=== PATIENT | female | born 1945 | race Caucasian/White ===

== ENCOUNTER 2017-11-03 00:13 | Outpatient (CLI) | payer MEDICARE, OTHER, SELFPAY ==
--- NOTE | 2017-11-03 12:12 | DI.MAMMO_ITS ---
SYMPTOM/DIAGNOSIS: SCREENING, Z12.31 MAMMOGRAMS: Mammograms were interpreted according to the usual protocol including computer analysis with CAD system, tomosynthesis and C view imaging. Comparison with prior examinations. Breast density D. No masses or microcalcifications are seen. There is nothing to suggest malignancy. IMPRESSION: Negative mammogram. Routine screening is recommended. Category I. MQSA ASSESSMENT OF FINDINGS: Negative. Category 1. Patient will receive a letter notifying them of these results. BI-RADS category D. The breasts are extremely dense, which lowers the sensitivity of mammography.
== END 2017-11-03 00:33 ==
PROVIDERS: PCP Nurse Practitioner Family; Visit Provider Nurse Practitioner Family
DX: Z12.31 Encounter for screening mammogram for malignant neoplasm of breast (principal)
CPT/HCPCS: 77063; 77067

== ENCOUNTER 2018-02-14 14:01 | Emergency (ER) | payer MEDICARE, OTHER, SELFPAY ==
[2018-02-14 14:04] VITALS: BP 94/46; PULSE 89; RESP 12; TEMP 36.7; O2SAT 97
[2018-02-14] MEDS: Ondansetron 4 MG/2 ML VIAL IVP (14:36)
[2018-02-14 14:42] VITALS: BP 102/54; PULSE 76; RESP 18; TEMP 37.3; O2SAT 100
--- NOTE | 2018-02-14 14:48 | W.ED.GENAD ---
Discharge Plan Disposition Patient Disposition: HOME Condition: Fair Discharge Details Chief Complaint: Nausea/Vomit/Diar Clinical Impression: Gastroenteritis Primary Care Provider: Jessica Ellis ED Provider: Carola Holm Home Meds and New Rx's Prescriptions: New ondansetron 4 mg tablet,disintegrating 4 mg PO QID PRN (Reason: nausea and vomiting) Qty: 10 RF: 0 Continued multivitamin [Daily Vitamin] 1 EACH tablet 1 ea PO DAILY RF: 0 cod liver oil 1 EACH capsule 1 ea PO BID RF: 0 calcium carbonate [Calcium 500] 500 MG tablet 500 mg PO DAILY RF: 0 cholecalciferol (vitamin D3) [Vitamin D3] 2,000 UNIT capsule 2,000 unit PO DAILY RF: 0 allerplex 2 tab PO TID RF: 0 drenatrophen 1 tab PO TID RF: 0 [place] 1 tab PO TID RF: 0 prochlorperazine [Compazine] 25 MG suppository 25 mg RC q8h PRNQty: 4 RF: 1 Varicella-Zoster Ge/As01b/Pf [Shingrix Vial Kit] 50 MCG INJ 50 mcg IM ONCE Qty: 1 RF: 1 sumatriptan succinate 50 mg tablet 50 mg PO ONCE MDD 200 mg PRN (Reason: migraine) Qty: 30 RF: 0 magnesium citrate 100 MG tablet 150 mg PO BID RF: 0 Discharge Instructions Instructions: Gastroenteritis (ED) Additional Instructions: Continue to encourage small frequent sips of fluids. Zofran is prescribed to help with nausea and vomiting. If you develop abdominal pain, note blood in your stool or in your emesis, develop fevers, inability to stay hydrated or other new/worsening symptoms please seek care urgently once again. Frequent hand hygiene to prevent spread. These follow-up with primary care in the next 5 days if not improving Referrals: Jessica Ellis, MAIKEL [Primary Care Provider] - Discharge Data Discharge Date/Time-TO BE ENTERED AT DEPARTURE: 02/14/18 17:27 Medical Decision Making Patient is a 72 year old female, accompanied by daughter, with c/c of nauea/vomiting and diarrhea that began yesterday. States she has vomited x 4 thus far today, no hematemesis. States that diarrhea has slowed down today. No recent travel, no recent antibiotics. Denies melena. Denies abdominal pain. She states that she has had body aches and chills, no documented fevers. Hx of hyperlipidemia, GERD, pelvic prolapse, migraines, gastric ulcer. Surgical history pertient for hernia repair. Patient appears fatigued and dehydrated on exam. VS WNL. Her BP s slightly low but this is typical for the patient on review. Abdomen is soft and nontender. She is currently endorsing nausea. Will hydrate the patient, give IV Zofran and obtain laboratory evaluation. Labs reviewed, consistent with dehydration. Patient has received 1L of fluids thus far, will give a second. Influenza negative, electrolytes normal. Patient diagnosed with gastroenteritis, advised this is likely viral process. Did advise that this is likely contagious. Patient feels much improved after the Zofran and hydration. She continues to receive IV hydration. She is currently taking in fluids orally. Encourage frequent sips when at home. Will prescribe Zofran to help with any persistent nausea. We discussed new/worsening symptoms and was seek care urgently once again. Advise follow-up with primary care this week if she is not improved. All of her questions and concerns were addressed she is in agreement with plan. HPI General Mode of arrival: ambulatory. Date/Time Provider Initiated Documentation: 02/14/18 14:25. Limitations to Documentation: no limitations. Information obtained by: patient and family. History of Present Illness 72 year old F presents to the emergency department with the chief complaint of nausea, vomiting and diarrhea, described as moderate (vomited x 4 today), Patient reports no radiation. Patient started experiencing this day(s) (1) and it has been constant. No relieving factors improve symptom(s), Eating worsens symptoms . Patient notes fever/chills (endorses chills, no fevers), loss of appetite, malaise and nausea/vomiting; denies chest pain, cough, headaches, rash and shortness of breath. Patient did receive the following treatments prior to arrival, none Related Data Home Medications Medication Instructions Recorded Confirmed Allerplex 2 tab PO TID 04/14/13 07/24/17 Drenatrophen 1 tab PO TID 04/14/13 07/24/17 [place] 1 tab PO TID 04/14/13 07/24/17 calcium carbonate [Calcium 500] 500 mg PO DAILY 04/14/13 07/24/17 cholecalciferol (vitamin D3) 2,000 unit PO DAILY 04/14/13 07/24/17 [Vitamin D3] cod liver oil 1 ea PO BID 04/14/13 07/24/17 multivitamin [Daily Vitamin] 1 ea PO DAILY 04/14/13 07/24/17 magnesium citrate 150 mg PO BID 07/11/16 07/24/17 prochlorperazine [Compazine] 25 mg RC q8h PRN #4 supp.rect 12/04/16 sumatriptan 50 mg tablet 50 mg PO ONCE PRN #30 tab-cap MDD 12/17/17 200 mg ondansetron 4 mg PO QID PRN #10 tab 02/14/18 Previous Rx's Medication Instructions Recorded sumatriptan 50 mg tablet 50 mg PO ONCE PRN #30 tab-cap MDD 12/17/17 200 mg ondansetron 4 mg PO QID PRN #10 tab 02/14/18 Allergies Allergy/AdvReac Type Severity Reaction Status Date / Time cefuroxime axetil Allergy Intermediate Skin Rash Unverified 02/14/18 14:07 [From Ceftin] General Stated Complaint: Nausea/Vomit/Diar JULIANNE: 3 Review of Systems Constitutional Reports as per HPI, Reports chills, Reports fatigue, Denies fever(s), Denies headache(s) and Reports poor appetite ENT Denies headache(s) Cardiovascular Reports as per HPI, Denies chest pain and Denies dyspnea Respiratory Reports as per HPI, Denies cough and Denies dyspnea Gastrointestinal Reports as per HPI, Denies abdominal pain, Denies melena, Denies bloating, Reports change in bowel habits, Denies coffee ground emesis, Denies cramping, Reports diarrhea, Reports nausea, Reports vomiting and Denies hematemesis Genitourinary Reports system reviewed and no additional complaints, except as docu (denies any change in urinary habits) Musculoskeletal Reports as per HPI and Denies back pain Integumentary/Breasts Reports as per HPI and Denies rash Neurologic Denies headache(s) Endocrine Reports fatigue [facility] Medical History GERD (gastroesophageal reflux disease) History of gastric ulcer Migraines OA (osteoarthritis) Osteoporosis Surgical History Bunionectomy (03/24/15) Extraction of cataract (07/16/16) removal lens material w/ lens implant, left (08/05/16) Family History Brother Diabetes Grandmother Diabetes Social History Smoking/Tobacco Use Status: Never Exam Const General: cooperative, healthy appearing, comfortable, no acute distress, well developed and ill appearing (appears fatigued and pale) acutely Nutritional Appearance: average body habitus and well nourished Orientation: alert and awake [facility] Head: normal to inspection Mouth: mucous membranes dry (patietn appears dry on exam) Neck Neck: normal visual inspection, no lymphadenopathy and no meningeal signs Resp Effort & Inspection: normal respiratory effort, able to speak in complete sentences and no respiratory distress Auscultation: clear to auscultation bilaterally, no rales, no rhonchi and no wheezes Cardio Rate: regular rate Rhythm: regular rhythm Heart Sounds: S1 normal and S2 normal GI Inspection: normal to inspection, non-distended, no obesity and no visible herniation Palpation: soft, no hepatosplenomegaly, not firm, no guarding, not rigid and nontender Percussion: normal to percussion Auscultation: normal bowel sounds Back/Spine/Pelvis Back: no CVA tenderness Skin General skin exam: no rashes or lesions noted Trauma: no lacerations or abrasions Neuro General: alert and awake Cognition: normal cognition Speech: speech normal Gait: normal gait Extrem General: no pedal edema and no calf tenderness Psych Appearance: grossly normal and well kempt Mental Status: mental status grossly normal Speech and Movement: speech and movement normal Course Vital Signs Temperature 36.7 C 02/14/18 14:04 Pulse 89 02/14/18 14:04 Respiratory Rate 12 02/14/18 14:04 Blood Pressure 94/46 L 02/14/18 14:04 Pulse Oximetry 97 02/14/18 14:04 Temperature 37.3 C 02/14/18 14:42 Temperature Source Oral 02/14/18 14:42 Pulse 76 02/14/18 14:42 Respiratory Rate 18 02/14/18 14:42 Respiratory Effort Non-Labored 02/14/18 14:06 Blood Pressure 102/54 L 02/14/18 14:42 Blood Pressure Position Sitting 02/14/18 14:04 Pulse Oximetry 100 02/14/18 14:42 Oxygen Delivery Method Room Air 02/14/18 14:42 Oxygen Flow Rate 0 02/14/18 14:42 Pain Level 0 02/14/18 14:04
[2018-02-14] MEDS: Normal Saline 1,000 ML 1000 ML IV (14:52)
--- NOTE | 2018-02-14 14:55 | ED.GENADUL_ITS ---
Discharge Plan Disposition Patient Disposition: HOME Condition: Fair Discharge Details Chief Complaint: Nausea/Vomit/Diar Clinical Impression: Gastroenteritis Primary Care Provider: Jessica Ellis ED Provider: Carola Holm Home Meds and New Rx's Prescriptions: New ondansetron 4 mg tablet,disintegrating 4 mg PO QID PRN (Reason: nausea and vomiting) Qty: 10 RF: 0 Continued multivitamin [Daily Vitamin] 1 EACH tablet 1 ea PO DAILY RF: 0 cod liver oil 1 EACH capsule 1 ea PO BID RF: 0 calcium carbonate [Calcium 500] 500 MG tablet 500 mg PO DAILY RF: 0 cholecalciferol (vitamin D3) [Vitamin D3] 2,000 UNIT capsule 2,000 unit PO DAILY RF: 0 allerplex 2 tab PO TID RF: 0 drenatrophen 1 tab PO TID RF: 0 [place] 1 tab PO TID RF: 0 prochlorperazine [Compazine] 25 MG suppository 25 mg RC q8h PRNQty: 4 RF: 1 Varicella-Zoster Ge/As01b/Pf [Shingrix Vial Kit] 50 MCG INJ 50 mcg IM ONCE Qty: 1 RF: 1 sumatriptan succinate 50 mg tablet 50 mg PO ONCE MDD 200 mg PRN (Reason: migraine) Qty: 30 RF: 0 magnesium citrate 100 MG tablet 150 mg PO BID RF: 0 Discharge Instructions Instructions: Gastroenteritis (ED) Additional Instructions: Continue to encourage small frequent sips of fluids. Zofran is prescribed to help with nausea and vomiting. If you develop abdominal pain, note blood in your stool or in your emesis, develop fevers, inability to stay hydrated or other new/worsening symptoms please seek care urgently once again. Frequent hand hygiene to prevent spread. These follow-up with primary care in the next 5 days if not improving Referrals: Jessica Ellis, MAIKEL [Primary Care Provider] - Discharge Data Discharge Date/Time-TO BE ENTERED AT DEPARTURE: 02/14/18 17:27 Medical Decision Making Patient is a 72 year old female, accompanied by daughter, with c/c of nauea/vomiting and diarrhea that began yesterday. States she has vomited x 4 thus far today, no hematemesis. States that diarrhea has slowed down today. No recent travel, no recent antibiotics. Denies melena. Denies abdominal pain. She states that she has had body aches and chills, no documented fevers. Hx of hyperlipidemia, GERD, pelvic prolapse, migraines, gastric ulcer. Surgical history pertient for hernia repair. Patient appears fatigued and dehydrated on exam. VS WNL. Her BP s slightly low but this is typical for the patient on review. Abdomen is soft and nontender. She is currently endorsing nausea. Will hydrate the patient, give IV Zofran and obtain laboratory evaluation. Labs reviewed, consistent with dehydration. Patient has received 1L of fluids thus far, will give a second. Influenza negative, electrolytes normal. Patient diagnosed with gastroenteritis, advised this is likely viral process. Did advise that this is likely contagious. Patient feels much improved after the Zofran and hydration. She continues to receive IV hydration. She is currently taking in fluids orally. Encourage frequent sips when at home. Will prescribe Zofran to help with any persistent nausea. We discussed new/worsening symptoms and was seek care urgently once again. Advise follow-up with primary care this week if she is not improved. All of her questions and concerns were addressed she is in agreement with plan. HPI General Mode of arrival: ambulatory . Date/Time Provider Initiated Documentation: 02/14/18 14:25 . Limitations to Documentation: no limitations . Information obtained by: patient and family . History of Present Illness 72 year old F presents to the emergency department with the chief complaint of nausea, vomiting and diarrhea, described as moderate (vomited x 4 today), Patient reports no radiation. Patient started experiencing this day(s) (1) and it has been constant. No relieving factors improve symptom(s), Eating worsens symptoms . Patient notes fever/chills (endorses chills, no fevers), loss of appetite, malaise and nausea/vomiting; denies chest pain, cough, headaches, rash and shortness of breath. Patient did receive the following treatments prior to arrival, none Related Data Home Medications Medication Instructions Recorded Confirmed Allerplex 2 tab PO TID 04/14/13 07/24/17 Drenatrophen 1 tab PO TID 04/14/13 07/24/17 [place] 1 tab PO TID 04/14/13 07/24/17 calcium carbonate [Calcium 500] 500 mg PO DAILY 04/14/13 07/24/17 cholecalciferol (vitamin D3) 2,000 unit PO DAILY 04/14/13 07/24/17 [Vitamin D3] cod liver oil 1 ea PO BID 04/14/13 07/24/17 multivitamin [Daily Vitamin] 1 ea PO DAILY 04/14/13 07/24/17 magnesium citrate 150 mg PO BID 07/11/16 07/24/17 prochlorperazine [Compazine] 25 mg RC q8h PRN #4 supp.rect 12/04/16 sumatriptan 50 mg tablet 50 mg PO ONCE PRN #30 tab-cap MDD 12/17/17 200 mg ondansetron 4 mg PO QID PRN #10 tab 02/14/18 Previous Rx's Medication Instructions Recorded sumatriptan 50 mg tablet 50 mg PO ONCE PRN #30 tab-cap MDD 12/17/17 200 mg ondansetron 4 mg PO QID PRN #10 tab 02/14/18 Allergies Allergy/AdvReac Type Severity Reaction Status Date / Time cefuroxime axetil Allergy Intermediate Skin Rash Unverified 02/14/18 14:07 [From Ceftin] General Stated Complaint: Nausea/Vomit/Diar JULIANNE: 3 Review of Systems Constitutional Reports as per HPI, Reports chills, Reports fatigue, Denies fever(s), Denies headache(s) and Reports poor appetite ENT Denies headache(s) Cardiovascular Reports as per HPI, Denies chest pain and Denies dyspnea Respiratory Reports as per HPI, Denies cough and Denies dyspnea Gastrointestinal Reports as per HPI, Denies abdominal pain, Denies melena, Denies bloating, Reports change in bowel habits, Denies coffee ground emesis, Denies cramping, Reports diarrhea, Reports nausea, Reports vomiting and Denies hematemesis Genitourinary Reports system reviewed and no additional complaints, except as docu (denies any change in urinary habits) Musculoskeletal Reports as per HPI and Denies back pain Integumentary/Breasts Reports as per HPI and Denies rash Neurologic Denies headache(s) Endocrine Reports fatigue [facility] Medical History GERD (gastroesophageal reflux disease) History of gastric ulcer Migraines OA (osteoarthritis) Osteoporosis Surgical History Bunionectomy (03/24/15) Extraction of cataract (07/16/16) removal lens material w/ lens implant, left (08/05/16) Family History Brother Diabetes Grandmother Diabetes Social History Smoking/Tobacco Use Status: Never Exam Const General: cooperative, healthy appearing, comfortable, no acute distress, well developed and ill appearing (appears fatigued and pale) acutely Nutritional Appearance: average body habitus and well nourished Orientation: alert and awake [facility] Head: normal to inspection Mouth: mucous membranes dry (patietn appears dry on exam) Neck Neck: normal visual inspection, no lymphadenopathy and no meningeal signs Resp Effort & Inspection: normal respiratory effort, able to speak in complete sentences and no respiratory distress Auscultation: clear to auscultation bilaterally, no rales, no rhonchi and no wheezes Cardio Rate: regular rate Rhythm: regular rhythm Heart Sounds: S1 normal and S2 normal GI Inspection: normal to inspection, non-distended, no obesity and no visible herniation Palpation: soft, no hepatosplenomegaly, not firm, no guarding, not rigid and nontender Percussion: normal to percussion Auscultation: normal bowel sounds Back/Spine/Pelvis Back: no CVA tenderness Skin General skin exam: no rashes or lesions noted Trauma: no lacerations or abrasions Neuro General: alert and awake Cognition: normal cognition Speech: speech normal Gait: normal gait Extrem General: no pedal edema and no calf tenderness Psych Appearance: grossly normal and well kempt Mental Status: mental status grossly normal Speech and Movement: speech and movement normal Course Vital Signs Temperature 36.7 C 02/14/18 14:04 Pulse 89 02/14/18 14:04 Respiratory Rate 12 02/14/18 14:04 Blood Pressure 94/46 L 02/14/18 14:04 Pulse Oximetry 97 02/14/18 14:04 Temperature 37.3 C 02/14/18 14:42 Temperature Source Oral 02/14/18 14:42 Pulse 76 02/14/18 14:42 Respiratory Rate 18 02/14/18 14:42 Respiratory Effort Non-Labored 02/14/18 14:06 Blood Pressure 102/54 L 02/14/18 14:42 Blood Pressure Position Sitting 02/14/18 14:04 Pulse Oximetry 100 02/14/18 14:42 Oxygen Delivery Method Room Air 02/14/18 14:42 Oxygen Flow Rate 0 02/14/18 14:42 Pain Level 0 02/14/18 14:04
[2018-02-14 14:56] LABS: Abs Immature Grans 0.02 k/cumm (0.0-0.09); HCT 36.1 % (36.0-46.0); HGB 12.5 g/dL (12.0-15.5); Mean Corp. HGB Concentration 34.6 g/dL (32.0-36.0); Mean Corpuscular Hemoglobin 33.2 pg (27.0-33.0); Mean Platelet Volume 9.5 fL (8.0-11.0); Platelet Count 197 x1000/uL (130-400); RBC 3.76 m/cumm (4.00-5.20); RBC Distribution Width 14.2 % (11.7-14.6); White Blood Cell Count 7.62 k/cumm (4.4-10.8)
[2018-02-14 15:18] LABS: Absolute Lymphocyte Count 0.53 k/cumm (1.2-3.4); Absolute Monocyte Count 0.38 k/cumm (0.11-0.7); Absolute Neutrophil Count 6.71 k/cumm (1.2-6.7)
[2018-02-14 15:19] LABS: Diff Comment Manual Differential; RBC Morphology Normal
[2018-02-14 15:24] VITALS: BP 159/61; PULSE 51; RESP 18; O2SAT 99
[2018-02-14 15:33] LABS: ALT 34 U/L (12-78); AST 27 U/L (15-37); Albumin 3.3 g/dL (3.4-5.0); Alkaline Phosphatase 56 U/L (46-116); Anion Gap 12.4 mmol/L (3-11); BUN 31 mg/dL (7-18); Bilirubin, Total 0.9 mg/dL (0.2-1.0); CO2 24.6 mmol/L (21.0-32.0); CREATININE 1.09 mg/dL (0.55-1.02); Calcium 8.9 mg/dL (8.5-10.1); Chloride 100 mmol/L (98-107); Glucose 143 mg/dL (70-100); Magnesium 1.9 mg/dL (1.8-2.4); Potassium 3.9 mmol/L (3.5-5.1); Sodium 137 mmol/L (136-145)
[2018-02-14 15:34] LABS: Troponin I < 0.02 ng/mL (0.00-0.06)
[2018-02-14] MEDS: Normal Saline 500 ML 1000 ML IV (16:29)
--- NOTE | 2018-02-14 16:31 | NUR.NOTE ---
patient drinking po fluids, 2nd liter admin, will contiune to monitor Nursing Note:
[2018-02-14 16:53] VITALS: BP 95/48; PULSE 74; RESP 16; O2SAT 100
[2018-02-14 17:07] VITALS: BP 102/47; PULSE 75; O2SAT 99
[2018-02-14] MEDS: Ondansetron O.D.T. 4 MG TABEF 12 MG PO (17:13)
== END 2018-02-14 17:27 | disposition home or self-care (01) ==
PROVIDERS: Emergency Provider Physician Assistant; PCP Nurse Practitioner Family
DX: K52.9 Noninfective gastroenteritis and colitis, unspecified (principal); I86.0 Sublingual varices
CPT/HCPCS: 36415; 80053; 87449; 96361; 96374; 99284; 83735; 84484; 85025; 99283

== ENCOUNTER 2018-08-24 07:02 | Outpatient (CLI) | payer MEDICARE, OTHER, SELFPAY ==
[2018-08-24 07:40] LABS: Absolute Basophil Count 0.01 k/cumm (0.0-0.2); Absolute Eosinophil Count 2.56 k/cumm (0.0-0.7); Absolute Lymphocyte Count 1.11 k/cumm (1.2-3.4); Absolute Monocyte Count 0.36 k/cumm (0.11-0.7); Absolute Neutrophil Count 1.76 k/cumm (1.2-6.7); Basophils % 0.2; Eosinophils % 44.1; HCT 35.4 % (36.0-46.0); HGB 11.8 g/dL (12.0-15.5); Lymphocytes % 19.1; Mean Corp. HGB Concentration 33.3 g/dL (32.0-36.0); Mean Corpuscular Hemoglobin 32.2 pg (27.0-33.0); Mean Corpuscular Volume 96.7 fL (80-95); Mean Platelet Volume 9.1 fL (8.0-11.0); Monocytes % 6.2; Neutrophils % 30.4; Platelet Count 186 x1000/uL (130-400); RBC 3.66 m/cumm (4.00-5.20); RBC Distribution Width 13.5 % (11.7-14.6)
[2018-08-24 08:00] LABS: Hemoglobin A1C 5.4 % (4.5-6.2)
[2018-08-24 08:14] LABS: ALT 27 U/L (12-78); AST 23 U/L (15-37); Albumin 3.6 g/dL (3.4-5.0); Alkaline Phosphatase 80 U/L (46-116); Anion Gap 11.2 mmol/L (3-11); BUN 14 mg/dL (7-18); Bilirubin, Total 0.7 mg/dL (0.2-1.0); CO2 24.8 mmol/L (21.0-32.0); CREATININE 0.72 mg/dL (0.55-1.02); Calcium 8.5 mg/dL (8.5-10.1); Calculated LDL 118 mg/dL; Chloride 102 mmol/L (98-107); Cholesterol 206 mg/dL (50-200); Glucose 93 mg/dL (70-100); HDL Cholesterol 77 mg/dL (40-60); Potassium 4.7 mmol/L (3.5-5.1); Sodium 138 mmol/L (136-145); TSH (W/Ref FT4) 1.62 uIU/mL (0.358-3.74); Total Protein 6.7 g/dL (6.4-8.2); Triglyceride 57 mg/dL (30-150)
[2018-08-24 08:18] LABS: Diff Comment Agrees w/ Instrument
[2018-08-24 08:19] LABS: RBC Morphology Normal
== END 2018-08-24 07:22 ==
PROVIDERS: PCP Nurse Practitioner Family; Visit Provider Nurse Practitioner Family
DX: E78.5 Hyperlipidemia, unspecified (principal); R73.01 Impaired fasting glucose; R53.83 Other fatigue
CPT/HCPCS: 36415; 80053; 80061; 83721; 83036; 84443; 85025

== ENCOUNTER 2018-09-01 01:39 | Outpatient (CLI) | payer MEDICARE, OTHER, SELFPAY ==
[2018-09-01 09:53] LABS: Absolute Basophil Count 0.01 k/cumm (0.0-0.2); Absolute Eosinophil Count 1.73 k/cumm (0.0-0.7); Absolute Lymphocyte Count 1.12 k/cumm (1.2-3.4); Absolute Monocyte Count 0.37 k/cumm (0.11-0.7); Absolute Neutrophil Count 1.58 k/cumm (1.2-6.7); Basophils % 0.2; HCT 36.5 % (36.0-46.0); HGB 12.2 g/dL (12.0-15.5); Lymphocytes % 23.3; Mean Corp. HGB Concentration 33.4 g/dL (32.0-36.0); Mean Corpuscular Hemoglobin 32.3 pg (27.0-33.0); Mean Corpuscular Volume 96.6 fL (80-95); Mean Platelet Volume 8.9 fL (8.0-11.0); Monocytes % 7.7; Neutrophils % 32.8; Platelet Count 209 x1000/uL (130-400); RBC 3.78 m/cumm (4.00-5.20); RBC Distribution Width 13.8 % (11.7-14.6); Reticulocyte 0.9 % (0.5-2.4); White Blood Cell Count 4.81 k/cumm (4.4-10.8)
[2018-09-01 10:12] LABS: Diff Comment Agrees w/ Instrument; RBC Morphology Normal
[2018-09-01 11:11] LABS: Vitamin B12 497 pg/mL (193-986)
[2018-09-01 11:12] LABS: Folate > 20.0 ng/mL (8.6-20.0)
== END 2018-09-01 01:59 ==
PROVIDERS: PCP Nurse Practitioner Family; Visit Provider Nurse Practitioner Family
DX: D64.9 Anemia, unspecified (principal); C50.912 Malignant neoplasm of unspecified site of left female breast; Z17.0 Estrogen receptor positive status [ER+]
CPT/HCPCS: 36415; 82607; 82746; 85025; 85045

== ENCOUNTER → 2018-09-29 12:49 | Outpatient (BNVA) | payer MEDICARE, OTHER, SELFPAY | PROVIDERS: PCP Nurse Practitioner Family; Visit Provider Urology | DX: R31.29 Other microscopic hematuria (principal) | CPT/HCPCS: 99212; 99213 ==

== ENCOUNTER 2018-10-01 02:18 | Outpatient (CLI) | payer MEDICARE, OTHER, SELFPAY ==
[2018-10-01 10:29] LABS: Absolute Basophil Count 0.01 k/cumm (0.0-0.2); Absolute Lymphocyte Count 1.11 k/cumm (1.2-3.4); Absolute Monocyte Count 0.35 k/cumm (0.11-0.7); Basophils % 0.3; Eosinophils % 5.3; HCT 34.3 % (36.0-46.0); HGB 11.5 g/dL (12.0-15.5); Lymphocytes % 29.4; Mean Corp. HGB Concentration 33.5 g/dL (32.0-36.0); Mean Corpuscular Hemoglobin 32.8 pg (27.0-33.0); Mean Corpuscular Volume 97.7 fL (80-95); Mean Platelet Volume 9.1 fL (8.0-11.0); Monocytes % 9.3; Neutrophils % 55.7; Platelet Count 212 x1000/uL (130-400); RBC 3.51 m/cumm (4.00-5.20); RBC Distribution Width 13.5 % (11.7-14.6); White Blood Cell Count 3.77 k/cumm (4.4-10.8)
[2018-10-01 11:25] LABS: Bilirubin Negative (Negative); Blood Trace-intact (Negative); Clarity Clear (Clear); Glucose Negative (Negative); Ketones Negative (Negative); Leukocyte Esterase Small (Negative); Nitrite Negative (Negative); Urobilinogen 0.2 EU/dL (Up TO 0.2); pH 7.5 (5-8)
[2018-10-01 11:48] LABS: Bacteria Few HPF (Negative); C & S Indicated? Yes; Casts Negative LPF (Negative); Crystals Negative HPF (Negative); Epithelial Cells Rare HPF (Negative); Mucus Negative (Negative); Other Cells Rare Renal (Negative)
== END 2018-10-01 02:38 ==
PROVIDERS: Urology; PCP Nurse Practitioner Family; Visit Provider Nurse Practitioner Family
DX: D75.89 Other specified diseases of blood and blood-forming organs (principal); R31.29 Other microscopic hematuria
CPT/HCPCS: 36415; 81003; 81015; 85025; 87086

== ENCOUNTER 2019-04-14 19:02 | Emergency (ER) | payer MEDICARE, OTHER, SELFPAY ==
[2019-04-14 19:06] VITALS: BP 94/58; PULSE 90; RESP 20; TEMP 36.7; O2SAT 99
--- NOTE | 2019-04-14 19:12 | ED.GENADUL_ITS ---
Discharge Plan Disposition Patient Disposition: HOME Condition: Good Discharge Details Chief Complaint: Nausea/Vomit/Diar Clinical Impression: Nausea vomiting and diarrhea, Acute dehydration Primary Care Provider: Jessica Ellis ED Provider: Carola Holm Home Meds and New Rx's Prescriptions: New ondansetron 4 mg tablet,disintegrating 4 mg PO Q6H PRN (Reason: nausea and vomiting) Qty: 14 RF: 0 Continued sumatriptan succinate 50 mg tablet 50 mg PO ONCE MDD 200 mg PRN (Reason: migraine) Qty: 30 RF: 3 multivitamin [Daily Vitamin] 1 EACH tablet 1 ea PO DAILY RF: 0 cod liver oil 1 EACH capsule 1 ea PO BID RF: 0 calcium carbonate [Calcium 500] 500 MG tablet 500 mg PO DAILY RF: 0 cholecalciferol (vitamin D3) [Vitamin D3] 2,000 UNIT capsule 2,000 unit PO DAILY RF: 0 [place] 1 tab PO TID RF: 0 prochlorperazine [Compazine] 25 mg suppository 25 mg [place] TID PRN (Reason: nausea and vomiting associated with migraines) Qty: 10 RF: 0 magnesium citrate 100 MG tablet 150 mg PO BID RF: 0 ondansetron 4 mg tablet,disintegrating 4 mg PO QID PRN (Reason: nausea and vomiting) Qty: 10 RF: 0 Discharge Instructions Instructions: Ondansetron (By mouth), Dehydration (ED), Acute Nausea and Vomiting (ED) Care Plan Goals: Continue to encourage water intake. Zofran as prescribed to help with any recurrent nausea. If you develop fever/chills, abdominal pain, inability stay hydrated or other new/worsening symptoms please seek care urgently once again. Otherwise, please follow-up with primary care in 2 days for reevaluation. Referrals: Jessica Ellis NP [Primary Care Provider] - Discharge Data Discharge Date/Time-TO BE ENTERED AT DEPARTURE: 04/14/19 21:45 Medical Decision Making Patient is a pleasant 73-year-old female, accompanied by her daughter, with chief complaint of nausea, vomiting. She reports that she awoke with the same symptoms around 2:00 this morning. States that she did the fish last night for dinner. No other sick contacts. Denies any recent travel. No chest pain or shortness of breath. States that she had 5 episodes of watery diarrhea this morning but that this is improved. She continues to endorse nausea. Is not been able to hydrate and feels weak and fatigued at this point. She was seen here 1 year ago for very similar symptoms. Has not had symptoms like this since that time. She denies any abdominal pain. No fevers or chills. No rash. Denies any dysuria. No hematemesis, blood in her stool. On exam, patient appears nontoxic. Lungs are clear, normal cardiac exam. Abdomen is benign, no CVA tenderness. Plan for hydration, laboratory evaluation and symptomatic management. Patient is given Zofran and IV hydration. She reports that she also has no migraine today. Did take her Imitrex was unable to keep this down. States it is typical migraine, no thunderclap etiology. Is not the worst headache of her life. She reports that typically when she has minimal p.o. intake could exacerbate her baseline migraines. Plan to treat with Reglan and Benadryl which she also help with the stomach further. Patient is feeling much improved. She is able to hydrate orally at this time. Labs reviewed. No leukocytosis. Sodium is mildly low at 135. BUN is elevated at 26, creatinine elevated at 1.2. I did discuss this acute kidney injury with the patient. Advised that she follow-up closely with primary care and have this reassessed. However, as the patient is currently hydrating, has received 2 L since being here he feel that discharge is appropriate at this time. She is clinically feeling much improved and feels ready for discharge at this time. She will contact primary care tomorrow to schedule follow-up appointment. We discussed new/worsening symptoms when to seek care urgently once again. All of her questions and concerns were addressed and she is in agreement this plan. [facility] General Mode of arrival: ambulatory . Date/Time Provider Initiated Documentation: 04/14/19 19:12 . Limitations to Documentation: no limitations . Information obtained by: patient and family (daughter) . History of Present Illness 73 year old F presents to the emergency department with the chief complaint of N/V/D, described as moderate and similar to prior episodes, Quality is described as other (abdominal cramping this morning, since resolved), and is localized to the abdomen. Patient reports no radiation. Patient started experiencing this hour(s) (0200) and it has been constant. No relieving factors improve symptom(s), No exacerbating factors reported . Patient notes denies chest pain, cough, fever/chills, headaches, nausea/vomiting, rash, shortness of breath and weakness. Patient did receive the following treatments prior to arrival, none Related Data Home Medications Medication Instructions Recorded Confirmed [place] 1 tab PO TID 04/14/13 04/14/19 calcium carbonate [Calcium 500] 500 mg PO DAILY 04/14/13 04/14/19 cholecalciferol (vitamin D3) 2,000 unit PO DAILY 04/14/13 04/14/19 [Vitamin D3] cod liver oil 1 ea PO BID 04/14/13 04/14/19 multivitamin [Daily Vitamin] 1 ea PO DAILY 04/14/13 04/14/19 magnesium citrate 150 mg PO BID 07/11/16 04/14/19 ondansetron 4 mg PO QID PRN #10 tab 02/14/18 04/14/19 prochlorperazine 25 mg rectal 25 mg [place] TID PRN #10 tab-cap 11/18/18 04/14/19 suppository sumatriptan succinate 50 mg tablet 50 mg PO ONCE PRN #30 tab-cap MDD 12/17/18 04/14/19 200 mg ondansetron 4 mg PO Q6H PRN #14 tab 04/14/19 Previous Rx's Medication Instructions Recorded ondansetron 4 mg PO QID PRN #10 tab 02/14/18 prochlorperazine 25 mg rectal 25 mg [place] TID PRN #10 tab-cap 11/18/18 suppository sumatriptan succinate 50 mg tablet 50 mg PO ONCE PRN #30 tab-cap MDD 12/17/18 200 mg ondansetron 4 mg PO Q6H PRN #14 tab 04/14/19 Allergies Allergy/AdvReac Type Severity Reaction Status Date / Time cefuroxime axetil Allergy Intermediate Skin Rash Verified 04/14/19 19:08 [From Ceftin] General Stated Complaint: Nausea/Vomit/Diar JULIANNE: 3 Review of Systems Constitutional Constitutional: Reports as per HPI, Denies chills, Reports fatigue, Denies fever(s), Denies headache(s) and Reports poor appetite ENT Ears, Nose, Mouth, and Throat: Denies headache(s) Cardiovascular Cardiovascular: Reports as per HPI, Denies chest pain and Denies dyspnea Respiratory Respiratory: Reports as per HPI, Denies cough and Denies dyspnea Gastrointestinal Gastrointestinal: Reports as per HPI Musculoskeletal Musculoskeletal: Reports as per HPI and Denies back pain Integumentary/Breasts Skin/Breast: Reports as per HPI and Denies rash Neurologic Neurologic: Reports as per HPI and Denies headache(s) Endocrine Endocrine: Reports fatigue [facility] Medical History Female genital prolapse (Chronic 04/17/11) Gastroesophageal reflux disease (Chronic 04/01/11) History of gastric ulcer Hyperlipidemia (Chronic 07/21/17) 08/2018 labs: 10-year ASCVD risk = ~10.9% --> NL HS-CRP in 2018, no statin Microscopic hematuria (Chronic 07/31/17) 07/24/17 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 Extraction of cataract (07/16/16) B/L (L eye initially aborted due to increased pressure then later completed successfully). Dr Villavicencio. removal lens material w/ lens implant, left (08/05/16) Status post rotator cuff surgery (Acute ~2015) Right Social History Smoking/Tobacco Use Status: Never Alcohol Intake: current Alcohol Intake frequency: a few times a week Alcohol type: wine Drug use: Never Substance use type: does not use Caregiver/Support person: No Number of Children: 3 Communication Needs: None What type of physical activity do you participate in: walking Duration: 60-90 minutes/day Frequency: daily Seatbelt use: always Helmet use: Yes Drive intox or ride w/intox power screwdriver operator: No Water heater temp set <120 deg: Yes Working smoke detector in home: Yes Fire extinguisher in home: Yes Carbon monox detector in home: Yes Firearms in home: No Do you feel safe at home: Yes Do you feel safe in your relationship?: Yes Female Reproductive History Menstrual Menopause type: natural Exam Const General: cooperative, healthy appearing, comfortable, no acute distress and well developed Nutritional Appearance: average body habitus and well nourished Orientation: alert and awake HENNE Head: normal to inspection Mouth: mucous membranes dry Resp Effort & Inspection: normal respiratory effort, able to speak in complete sentences and no respiratory distress Auscultation: clear to auscultation bilaterally, no rales, no rhonchi and no wheezes Cardio Rate: regular rate Rhythm: regular rhythm Heart Sounds: S1 normal and S2 normal GI Inspection: normal to inspection and non-distended Palpation: soft, no hepatosplenomegaly, not firm, no guarding, not rigid and nontender Percussion: normal to percussion Auscultation: normal bowel sounds Back/Spine/Pelvis Back: no CVA tenderness Skin General skin exam: no rashes or lesions noted Trauma: no lacerations or abrasions Neuro General: alert and awake Cognition: normal cognition Speech: speech normal Gait: normal gait Psych Appearance: grossly normal and well kempt Mental Status: mental status grossly normal Speech and Movement: speech and movement normal Course Vital Signs Vital signs: Vital Signs Temperature 36.7 C 04/14/19 19:06 Pulse 90 04/14/19 19:06 Respiratory Rate 04/14/19 19:06 Blood Pressure 94/58 L 04/14/19 19:06 Pulse Oximetry 99 04/14/19 19:06 Temperature 36.7 C 04/14/19 19:06 Temperature Source Temporal Artery Scan 04/14/19 19:06 Pulse 90 04/14/19 19:06 Respiratory Rate 20 04/14/19 19:06 Blood Pressure 94/58 L 04/14/19 19:06 Pulse Oximetry 99 04/14/19 19:06 Oxygen Delivery Method Room Air 04/14/19 19:06 Oxygen Flow Rate 0 04/14/19 19:06 Pain Level 0 04/14/19 19:06
[2019-04-14] MEDS: Lactated Ringers 1,000 ML 1000 ML IV (19:20)
[2019-04-14 19:42] LABS: Abs Immature Grans 0.02 k/cumm (0.0-0.09); Absolute Lymphocyte Count 0.24 k/cumm (1.2-3.4); Absolute Monocyte Count 0.74 k/cumm (0.11-0.7); Absolute Neutrophil Count 7.26 k/cumm (1.2-6.7); Immature Grans % 0.2 %; Lymphocytes % 2.9; Mean Corp. HGB Concentration 34.2 g/dL (32.0-36.0); Mean Corpuscular Hemoglobin 32.7 pg (27.0-33.0); Mean Corpuscular Volume 95.7 fL (80-95); Mean Platelet Volume 9.2 fL (8.0-11.0); Neutrophils % 87.9; Platelet Count 236 x1000/uL (130-400); RBC 3.97 m/cumm (4.00-5.20); RBC Distribution Width 13.1 % (11.7-14.6); White Blood Cell Count 8.26 k/cumm (4.4-10.8)
[2019-04-14] MEDS: Normal Saline Flush 10 ML SYR IVP (19:51)
[2019-04-14] MEDS: Ondansetron 4 MG/2 ML VIAL IVP (19:51)
[2019-04-14] MEDS: diphenhydrAMINE 50 MG/ML VIAL 25 MG IVP (20:05)
[2019-04-14 20:06] LABS: Albumin 3.3 g/dL (3.4-5.0); Alkaline Phosphatase 63 U/L (46-116); BUN 26 mg/dL (7-18); Bilirubin, Total 1.1 mg/dL (0.2-1.0); CREATININE 1.21 mg/dL (0.55-1.02); Calcium 8.5 mg/dL (8.5-10.1); Chloride 101 mmol/L (98-107); Glucose 139 mg/dL (74-106); Potassium 4.5 mmol/L (3.5-5.1); Sodium 135 mmol/L (136-145); Total Protein 6.9 g/dL (6.4-8.2)
[2019-04-14] MEDS: Metoclopramide 10 MG/2 ML VIAL IVP (20:06)
[2019-04-14 20:07] LABS: ALT 28 U/L (14-59); AST 23 U/L (15-37); Anion Gap 11.4 mmol/L (3-11); CO2 22.6 mmol/L (21.0-32.0)
[2019-04-14] MEDS: Normal Saline 1,000 ML 1000 ML IV (20:35)
[2019-04-14 20:58] VITALS: BP 91/43; PULSE 70; RESP 18; O2SAT 98
[2019-04-14 21:39] VITALS: BP 91/43; PULSE 70; RESP 18; TEMP 36.7; O2SAT 98
[2019-04-14] MEDS: Ondansetron O.D.T. 4 MG TABEF, 3 TABS/BTL PO (21:40)
== END 2019-04-14 21:45 | disposition home or self-care (01) ==
PROVIDERS: Emergency Provider Physician Assistant; PCP Nurse Practitioner Family
DX: R11.2 Nausea with vomiting, unspecified (principal); R19.7 Diarrhea, unspecified; E86.0 Dehydration
CPT/HCPCS: 80053; 96361; 96374; 96375; 99284; 85025; J1200; J2405; J2765

== ENCOUNTER 2019-07-19 10:04 | Outpatient (CLI) | payer MEDICARE, OTHER, SELFPAY ==
--- NOTE | 2019-07-19 09:45 | DI.RAD_ITS ---
EXAM: XR KNEE LT 4V AP,LAT,CHRIS,PAT CLINICAL HISTORY: left knee pain. TECHNIQUE: 2D digital imaging was performed. COMPARISON: No exams were available for comparison FINDINGS: BONES: No acute fracture is present. No bony destructive lesion is seen. JOINTS: The knee is normally aligned. No joint effusion is seen. SOFT TISSUE: Normal. IMPRESSION: No acute abnormality. DATA REPOSITORY: RADIATION DOSE DELIVERED:
== END 2019-07-19 10:24 ==
PROVIDERS: PCP Nurse Practitioner Family; Referring Provider Nurse Practitioner Family; Visit Provider Student in an Organized Health Care Education/Training Program
DX: M25.562 Pain in left knee (principal); M76.32 Iliotibial band syndrome, left leg
CPT/HCPCS: 20610; 99203; 99214; 73564; J1030

== ENCOUNTER 2019-10-06 03:03 | Outpatient (CLI) | payer MEDICARE, OTHER, SELFPAY ==
[2019-10-06 08:42] LABS: ALT 27 U/L (14-59); AST 18 U/L (15-37); Albumin 3.8 g/dL (3.4-5.0); Alkaline Phosphatase 74 U/L (46-116); Anion Gap 3.2 mmol/L (3-11); BUN 11 mg/dL (7-18); Bilirubin, Total 0.7 mg/dL (0.2-1.0); CO2 29.8 mmol/L (21.0-32.0); CREATININE 0.69 mg/dL (0.55-1.02); Calcium 8.9 mg/dL (8.5-10.1); Chloride 106 mmol/L (98-107); Glucose 92 mg/dL (74-106); Potassium 4.3 mmol/L (3.5-5.1); Sodium 139 mmol/L (136-145); Total Protein 7.1 g/dL (6.4-8.2)
== END 2019-10-06 03:23 ==
PROVIDERS: PCP Nurse Practitioner Family; Visit Provider Nurse Practitioner Family
DX: N17.9 Acute kidney failure, unspecified (principal); E80.6 Other disorders of bilirubin metabolism
CPT/HCPCS: 36415; 80053

== ENCOUNTER 2019-10-13 04:39 | Outpatient (CLI) | payer MEDICARE, OTHER, SELFPAY ==
--- NOTE | 2019-10-13 08:15 | DI.MAMMO_ITS ---
EXAM: MG MAMMO SCREENING CLINICAL HISTORY: screening, Z12.39 TECHNIQUE: Bilateral full field digital CC and MLO mammographic images were obtained with 3D tomosyn thesis and utilizing computer aided detection (CAD). COMPARISON: Available for comparison. FINDINGS: Masses/Architectural Distortion: None seen. Microcalcifications: No suspicious pleomorphic-type are seen. Skin Thickening/Nipple Retraction: None. IMPRESSION: 1. No significant interval change with no specific features of malignancy noted. 2. Unless there is more urgent need, screening mammography is recommended, as per [employer] guidelines. BI-RADS Category 1 - Negative Breast Density - Category D - Extremely dense The mammogram demonstrates the patient's breast tissue is dense. Dense breast tissue is very common a nd is not abnormal but dense breast tissue can make it harder to find cancer on a mammogram. Also, de nse breast tissue may increase their breast cancer risk. This information about the result of the [facility] mogram report was provided to the patient to raise their awareness. Use this report when you speak wi th the patient about their risks for breast cancer, which includes their family history. At that time , you may recommend for more screening tests (Ultrasound or MRI) as they might be useful based on the ir risk. A negative radiographic report should not delay biopsy if a dominant or clinically suspicious mass is present. Up to ten percent of cancers are not identified on mammography. A negative report may reinforce clinical impression. Adenosis and dense breasts may obscure an underlying neoplasm. False positive reports average 6 to 10%. Patient will receive a letter notifying them of these results.
== END 2019-10-13 04:59 ==
PROVIDERS: PCP Nurse Practitioner Family; Visit Provider Nurse Practitioner Family
DX: Z12.31 Encounter for screening mammogram for malignant neoplasm of breast (principal); R92.2 Inconclusive mammogram
CPT/HCPCS: 77063; 77067

== ENCOUNTER → 2019-11-25 09:57 | Outpatient (BNVA) | payer MEDICARE, OTHER, SELFPAY | PROVIDERS: PCP Nurse Practitioner Family; Referring Provider Nurse Practitioner Family; Visit Provider Physical Therapy Assistant | DX: Z12.11 Encounter for screening for malignant neoplasm of colon (principal) ==

== ENCOUNTER → 2019-11-26 10:46 | Outpatient (BNVA) | payer MEDICARE, OTHER, SELFPAY | PROVIDERS: PCP Nurse Practitioner Family; Referring Provider Nurse Practitioner Family; Visit Provider Student in an Organized Health Care Education/Training Program | DX: M76.32 Iliotibial band syndrome, left leg (principal) | CPT/HCPCS: 20550; 99213; J1030 ==

== ENCOUNTER 2019-12-13 06:14 | Day surgery (SDC) | payer MEDICARE, OTHER, SELFPAY ==
[2019-12-13 06:42] VITALS: BP 116/70; PULSE 68; RESP 18; TEMP 36.1; O2SAT 95
[2019-12-13] MEDS: Lactated Ringers 1,000 ML 80 ML IV (06:55)
--- NOTE | 2019-12-13 06:59 | W.COLOREPORT ---
Date of service: 12/13/19 Time of Service: :33 Colonoscopy Report Date of procedure: 12/13/19 Pre-op diagnosis general: Colon Cancer Screening Post-op diagnosis procedure note: other (polyps) Procedure: Colonoscopy with polypectomy Surgeon: Yusra Charles Anesthesia proc note operative: other (General/ ASA 2/Osmar Cano CRNA) Estimated blood loss (mL): 3 Pathology: other (AScending polyp, transverse polyp and sigmoid polyp) Complications: None Disposition: same day Indications: The patient is here for Colonoscopy pre-op. Her last screening was in 2009 and was unremarkable. She has no family history of colon cancer. She has not had any bowel habit changes. -Discussed colonoscopy bowel prep as well as the procedure. Discussed possible complications of the procedure to include bleeding, pain, perforation, missed small lesion/polyp, sore throat, aspiration and adverse reaction to the medications. Questions were answered to patient?s satisfaction. No guarantees were implied or given. Prep: Miralax/Dulcolax Procedure Start Time: Procedure End Time: :57 Retraction Time: 14 minutes Findings: 3 small polyps identified. All were <10 mm in size Procedure Description: After informed consent was obtained the patient was taken to the procedure room and placed in a left decubitous position. Monitors were applied and a time out was done. The patients name, date of , procedure, allergies to medications and metal in their body was reviewed. The patient was then sedated. Once sedated and comfortable a rectal exam was done. External exam was normal. Internal exam revealed a normal sphincter tone and no palpable masses. The scope was then introduced and retro-flexed. No internal hemorrhoids, masses or polyps were identified on retro-flexion. The scope was then advanced to the cecum without difficulty. The ileocecal valve and appendiceal orifice were identified. The prep was adequate. The scope was then slowly retracted over 14 minutes back into the rectum. Polyps were removed with cold forceps in the ascending colon, transverse polyp and sigmoid polyp. There were no diverticula. The scope was removed and the patient was woken up and taken back to Same day surgery in stable condition. The patient tolerated the procedure well and there were no immediate complications. Follow up: The patient should follow up in 3-5 years unless they develop changes in bowel habits or other new gastrointestinal complaints.
--- NOTE | 2019-12-13 07:00 | W.PM.DSUDISC ---
Discharge Plan Disposition Patient Disposition: HOME Condition: Good Discharge Details Reason For Visit: colonoscopy Attending Provider: Yusra Charles Primary Care Provider: Jessica Ellis Home Meds and New Rx's Prescriptions: Continued sumatriptan succinate 50 mg tablet 50 mg PO ONCE MDD 200 mg PRN (Reason: migraine) Qty: 30 RF: 3 multivitamin [Daily Vitamin] 1 EACH tablet 1 ea PO DAILY RF: 0 cod liver oil 1 EACH capsule 1 ea PO BID RF: 0 calcium carbonate [Calcium 500] 500 MG tablet 500 mg PO DAILY RF: 0 cholecalciferol (vitamin D3) [Vitamin D3] 2,000 UNIT capsule 2,000 unit PO DAILY RF: 0 [place] 1 tab PO TID RF: 0 prochlorperazine [Compazine] 25 mg suppository 25 mg [place] TID PRN (Reason: nausea and vomiting associated with migraines) Qty: 10 RF: 0 methylprednisolone [Medrol (Rafal)] 4 mg tablets,dose pack See Rx Instructions PO DIRECTED Qty: 21 RF: 0 ondansetron 4 mg tablet,disintegrating 4 mg PO Q6H PRN (Reason: nausea and vomiting) Qty: 14 RF: 0 acetaminophen 500 mg Capsule 1,000 mg PO Q6H PRNRF: 0 magnesium citrate 100 MG tablet 150 mg PO BID RF: 0 Discontinued polyethylene glycol 3350 17 gram/dose powder 238 g PO ONCE Qty: 238 RF: 0 bisacodyl [Dulcolax (bisacodyl)] 5 mg tablet,delayed release (DR/EC) 5 mg PO ONCE Qty: 4 RF: 0 bisacodyl [Dulcolax (bisacodyl)] 5 mg tablet,delayed release (DR/EC) 5 mg PO ONCE Qty: 4 RF: 0 polyethylene glycol 3350 17 gram/dose powder 17 g PO ONCE Qty: 238 RF: 0 Discharge Instructions Instructions: Colorectal Polyps (DC) Additional Instructions: Findings: 3 small polyps Follow up: 3-5 years Please call if you develop: fevers >101.5 Nausea or Vomiting Abdominal pain that is not transient DAY SURGERY UNIT POST ENDOSCOPY INSTRUCTIONS 1. Because there will be medication in your system for the next 24 hours, you may feel a little sleepy. Your coordination will be affected. Therefore: a. Do not drive or operate dangerous equipment for 24 hours. b. Do not drink alcohol beverages for 24 hours (not even beer). c. Plan to go home and rest for the day. 2. Generally there are no restrictions on your activity after a day or so has gone by, but you may feel a bit fatigued for a few days. 3 After you arrive home you may have a light meal and return to a normal diet as you can tolerate it without feeling sick to your stomach. 4. After surgery, you may feel pain or discomfort. This should be only transient, but if it persists please contact your doctor. 5. If there are any questions regarding the findings of your procedure, please feel free to contact your doctor. 6. If you are unable to contact your doctor with a problem, contact the hospital at [phone]. 7. Continue all your regular medications unless directed otherwise. I understand the above instructions and have no questions. Signature of Patient or Responsible Adult Escort Date/Time Name of Responsible Adult Escort Signature of Nurse Date/Time Activity:: Activity as Tolerated Diet:: As Tolerated Discharge Orders Discharge Orders: Discharge Order (Routine); Ordered 12/13/19 Ordered By: Yusra Charles
--- NOTE | 2019-12-13 07:35 | BOWEL_PTH ---
PATIENT: Adele Lala LOC: [facility] U#:[id number] AGE/SX: 74/F ROOM: RE12/13/[address]: Yusra Charles MD : [id number] BED: DIS: 12/13/2019 SPEC #: [id number] RECD: 12/13/19 10:46 STATUS: SURINDER REQ #: [id number] ABIODUN: 12/13/19 07:[address]: Yusra Charles DEPT: Surgical Specimen RECD BY: Sakina Denny ENTERED: 12/13/19 10:49 SP TYPE: Bowel OTHR DR: Jessica Ellis, PREMA Tissues: 1 - BIOPSY BOWEL 2 - BIOPSY BOWEL 3 - BIOPSY BOWEL Procedures: GROSS AND MICRO LEVEL 4 Comments: [id number] ([id number] [facility] [place]#)
[2019-12-13 08:26] VITALS: BP 100/57; PULSE 54; RESP 16; TEMP 36.1; O2SAT 100
== END 2019-12-13 09:12 | disposition home or self-care (01) ==
PROVIDERS: PCP Nurse Practitioner Family; Visit Provider Surgery
PROC: 0DJD8ZZ Inspection of Lower Intestinal Tract, Via Natural or Artificial Opening Endoscopic (ICD-10-PCS; CPT 45378; principal; 2019-12-13 07:30)
DX: Z12.11 Encounter for screening for malignant neoplasm of colon (principal); K63.5 Polyp of colon; M54.5 Low back pain; K21.9 Gastro-esophageal reflux disease without esophagitis
CPT/HCPCS: 45380; 88305

== ENCOUNTER 2020-01-10 02:34 | Outpatient (CLI) | payer MEDICARE, OTHER, SELFPAY ==
[2020-01-12 05:07] LABS: Patient Race White; SARS-CoV-2 RNA Undetected (Undetected); SARS-CoV-2 Specimen Source Nasal
== END 2020-01-10 02:54 ==
PROVIDERS: PCP Nurse Practitioner Family; Visit Provider Nurse Practitioner Family
DX: Z11.59 Encounter for screening for other viral diseases (principal); Z20.828 Contact with and (suspected) exposure to other viral communicable diseases
CPT/HCPCS: U0003

== ENCOUNTER 2020-03-13 02:08 | Outpatient (CLI) | payer MEDICARE, OTHER, SELFPAY ==
--- NOTE | 2020-03-13 08:00 | DI.US_ITS ---
EXAM: US CAROTID CLINICAL HISTORY: R/o stenosis (dental xr showed carotid artery calcification),i65.29. TECHNIQUE: Ultrasound carotids performed using grayscale, color-flow, and spectral Doppler imaging. COMPARISON: No exams were available for comparison FINDINGS: RIGHT CAROTID ARTERY: Plaque: Minimal calcific plaque in the carotid bulb. Velocity elevation: None. LEFT CAROTID ARTERY: Plaque: Minimal calcific plaque in the carotid bulb. Velocity elevation: None. VERTEBRAL ARTERIES: Antegrade flow. Measurements: R Bulb: 66.3cm/s PS / 25.2cm/s ED R CCA: 64.7cm/s PS / 20cm/s ED R ECA: 73.1cm/s PS / 12.1cm/s ED R ICA Prox: 110.6cm/s PS /21.7cm/s ED R ICA Mid: 94cm/s PS / 21.7cm/s ED R ICA Distal: 72.3cm/s PS /29.6cm/s ED R Vert: 45.2cm/s PS / 14.7cm/s ED R SVR: 1.71 R DVR: 1.09 L Bulb: 51.4cm/s PS /18.6cm/s ED L CCA: 73.9cm/s PS / 23.8cm/s ED L ECA: 82.4cm/s PS /13cm/s ED L ICA Prox:59.8cm/s PS / 20.6cm/s ED L ICA Mid: 74.6cm/sPS / 29.6cm/s ED L ICA Distal: 86.1cm/s PS / 28.7cm/s ED L Vert: 28.5cm/s PS / 10.3cm/s ED L SVR: 1.17 L DVR: 1.21 IMPRESSION: No evidence for hemodynamically significant carotid stenosis. Criteria for Carotid Stenosis: Normal: ICA PSV <125 cm/s no plaque or intimal thickening is visible. <50% stenosis: ICA PSV <125 cm/s and plaque or intimal thickening is visible. 50-69% stenosis: ICA PSV is 125-250 cm/s and plaque is visible. >70% stenosis to near occlusion: ICA PSV >250 cm/s with visible plaque and luminal narrowing. DATA REPOSITORY:
== END 2020-03-13 02:28 ==
PROVIDERS: PCP Nurse Practitioner Family; Visit Provider Nurse Practitioner Family
DX: I65.23 Occlusion and stenosis of bilateral carotid arteries (principal)
CPT/HCPCS: 93880

== ENCOUNTER 2020-05-08 13:04 | Emergency (ER) | payer MEDICARE, OTHER, SELFPAY ==
[2020-05-08] VITALS (26 sets, daily range): BP systolic 112–138; BP diastolic 54–73; PULSE 54–76; RESP 9–21; TEMP 36.3–37.1; O2SAT 99–100
--- NOTE | 2020-05-08 13:15 | RT.EKG_ITS ---
APPROVED REPORT Exam: Resting ECG Patient Location: E HR:56 bpm ECG Measurements Heart Rate 56 AXIS IL 176 P 76 QRSd 87 QRS 75 QT 438 T 64 QTc 424 Conclusion Sinus bradycardia...rate< 60 Nonspecific T abnormalities, lateral leads...T <-0.10mV, I aVL V5 V6 sinus bradycardia at 56, normal axis, T wave flattening aVL, no STEMI, nondiagnostic EKG
[2020-05-08] MEDS: Normal Saline Flush 10 ML SYR IVP (13:17)
--- NOTE | 2020-05-08 13:35 | DI.RAD_ITS ---
EXAM: XR CHEST 2V PA LATERAL CLINICAL HISTORY: chills, lightheadedness. TECHNIQUE: 2D digital imaging was performed. COMPARISON: CR PORTABLE AP CHEST from 01/23/2011 FINDINGS: Heart size is normal. The mediastinum is not widened. There is a density in the left lung apex which is more evident on the prior study. Some pleural thic kening in the right lung apex also notable left so. No pleural effusions. No pneumothorax. No pulm onary edema. IMPRESSION: Nodular infiltrate left lung apex. Not evident on prior study 2010. Recommend follow-up CT scan. DATA REPOSITORY: RADIATION DOSE DELIVERED:
[2020-05-08] MEDS: Normal Saline 1,000 ML 1000 ML IV (13:53)
[2020-05-08] MEDS: Meclizine 25 MG TAB PO (13:55)
[2020-05-08 14:00] LABS: Lactate 1.2 mmol/L (0.6-1.4)
--- NOTE | 2020-05-08 14:00 | DI.MRI_ITS ---
EXAM: MR ANGIO NECK WO CLINICAL HISTORY: vertigo TECHNIQUE: Noninfused MRA performed with [id number] sequence COMPARISON: None FINDINGS: AORTIC ARCH: The left vertebral artery originates as an independent vessel off the aortic arch instea d of arising conventional fashion off of the left subclavian artery. ANTERIOR CIRCULATION: Both common carotid arteries ascend with normal luminal diameters. There is minimal of any significa nt stenosis at the carotid bifurcations. Approximately 15-20 percent narrowing of the origin of the internal carotid arteries both sides. Above this level these arteries exhibit normal diameters in th e upper neck and skull base-carotid canals. POSTERIOR CIRCULATION: Both vertebral arteries ascend with normal luminal diameters. No evidence of intraluminal thrombus n or dissection. Both vertebral arteries contribute to the formation of the basilar artery at the skul l base. IMPRESSION: Patent carotid and vertebral arteries in the neck. Mild atherosclerotic disease at the proximal inte rnal carotid arteries with less than 20 percent narrowing bilaterally. DATA REPOSITORY:
--- NOTE | 2020-05-08 14:00 | DI.MRI_ITS ---
EXAM: MR BRAIN WO CLINICAL HISTORY: new onset vertigo TECHNIQUE: Multiplanar multisequence MRI of the brain was performed. COMPARISON: No exams were available for comparison FINDINGS: CEREBRAL PARENCHYMA: No evidence of intracranial hemorrhage, mass effect nor shift of midline structu re. No extraaxial fluid collections. Ventricles are not enlarged nor shifted. There is no significant focal signal abnormality in the cerebellar hemispheres nor within the finesse, m idbrain, and thalami. High-resolution sub millimeters slice sequence reveals no masses cerebellopontine angles and no evide nce of intra canalicular acoustic schwannoma. There are few small foci of white scratch matter FLAIR bright foci which do not exhibit evidence of h emorrhage, surrounding edema, no abnormal signal in the fusion imaging. There is no significant focal signal abnormality evident on diffusion imaging to suggest acute ischem ic event. PITUITARY GLAND: No mass nor parasellar abnormality. No obvious abnormality in the cavernous sinuses. FLOW VOIDS: The expected flow void are noted. No evidence of obvious aneurysm nor obvious vascular ma lformation. PARANASAL SINUSES: The visualized paranasal sinuses appear unremarkable. No obvious finding ORBITS: No obvious findings. IMPRESSION: No acute intracranial findings. There are few small foci of white matter disease in the frontal lobe s not associated with abnormal signal on diffusion imaging to suggest acute ischemia. No evidence of cerebellopontine angle mass nor mass within the internal auditory canals. DATA REPOSITORY:
--- NOTE | 2020-05-08 14:00 | DI.MRI_ITS ---
EXAM: MR ANGIO BRAIN WO CLINICAL HISTORY: vertigo TECHNIQUE: MRA brain performed without IV contrast using time of flight technique. COMPARISON: CT and MRI reviewed FINDINGS: ANTERIOR CIRCULATION: Both internal carotid arteries are demonstrated to be patent in the skull base- carotid canals as well as within the intracavernous components. The supraclinoid aspect of these ves sels are also patent. Both A1 segments are patent as are the anterior cerebral arteries. There is n o evidence of aneurysm at the level of the anterior communicating artery. Both middle cerebral arteries are patent out to the sylvian fissure branches. Also no aneurysms in t hese vessels. POSTERIOR CIRCULATION: The basilar artery is formed skull base by contribution from both vertebral ar teries. Posterior inferior cerebellar arteries arise off the vertebral arteries at the skull base. The basilar artery ascends with normal luminal diameter. Distally it gives off superior cerebellar a rteries and above this level terminates as bilateral patent posterior cerebral arteries. The left po sterior cerebral artery also receives contribution from a posterior communicating artery on the left side of the [id number]. There is no AIR VALUE TESTER on the right side of the [id number]. There is n o evidence of aneurysm at the tip of the basilar artery nor elsewhere in the [id number] IMPRESSION: Patent intracerebral arteries. No evidence of intraluminal thrombus. No aneurysms evident. DATA REPOSITORY:
[2020-05-08 14:01] LABS: Abs Immature Grans 0.01 10^3/uL (0.0-0.06); Absolute Basophil Count 0.01 10^3/uL (0.0-0.2); Absolute Eosinophil Count 0.02 10^3/uL (0.0-0.7); Absolute Lymphocyte Count 0.68 10^3/uL (1.2-3.4); Absolute Monocyte Count 0.29 10^3/uL (0.1-0.8); Basophils % 0.3; Eosinophils % 0.5; HCT 36.8 % (36.0-46.0); HGB 12.5 g/dL (11.2-15.7); Immature Grans % 0.3; Lymphocytes % 18.3; MCH 32.6 pg (27.0-33.0); MCV 95.8 fL (80-95); MPV 9.5 fL (8.0-11.0); Monocytes % 7.8; Neutrophils % 72.8; Nucleated RBC 0 %; Platelet Count 179 10^3/uL (130-400); RBC 3.84 10^6/uL (3.93-5.22); RDW 12.8 % (11.7-14.6); RDW-SD 45.4 fL; WBC 3.71 10^3/uL (4.4-10.8)
[2020-05-08 14:04] LABS: Source Nasal/Nares
[2020-05-08 14:15] LABS: ALT 25 U/L (14-59); AST 18 U/L (15-37); Albumin 3.7 g/dL (3.4-5.0); Alkaline Phosphatase 79 U/L (46-116); Anion Gap 9.6 mmol/L (3-11); BUN 12 mg/dL (7-18); CO2 25.4 mmol/L (21.0-32.0); CREATININE 0.7 mg/dL (0.55-1.02); Calcium 8.8 mg/dL (8.5-10.1); Chloride 99 mmol/L (98-107); Glucose 106 mg/dL (74-106); Magnesium 1.9 mg/dL (1.8-2.4); Potassium 3.9 mmol/L (3.5-5.1); Sodium 134 mmol/L (136-145); Total Protein 7.3 g/dL (6.4-8.2)
[2020-05-08 14:44] LABS: COVID-19 PCR Negative (Negative)
[2020-05-08 14:54] LABS: Bilirubin Negative (Negative); Blood Trace-intact (Negative); Clarity Sl Cloudy (Clear); Glucose Negative (Negative); Ketones Trace mg/dL (Negative); Leukocyte Esterase Trace (Negative); Nitrite Negative (Negative); Urobilinogen 0.2 EU/dL (Up TO 0.2); pH 7.5 (5-8)
[2020-05-08 15:04] LABS: Bacteria Few HPF (Negative); C & S Indicated? Yes; Casts Negative LPF (Negative); Crystals Few Amorphous HPF (Negative); Epithelial Cells Few HPF (Negative); Mucus Negative (Negative)
--- NOTE | 2020-05-08 15:32 | ED.GENADUL_ITS ---
Discharge Plan Disposition Patient Disposition: HOME Condition: Stable Discharge Details Clinical Impression: Vertigo, Incidental pulmonary nodule Primary Care Provider: Jessica Ellis ED Provider: Eric Odonnell Home Meds and New Rx's Prescriptions: New meclizine 25 mg tablet 25 mg PO TID PRN (Reason: dizziness) Qty: 30 RF: 0 Continued sumatriptan succinate 50 mg tablet 50 mg PO ONCE MDD 200 mg PRN (Reason: migraine) Qty: 30 RF: 3 multivitamin [Daily Vitamin] 1 EACH tablet 1 ea PO DAILY RF: 0 cod liver oil 1 EACH capsule 1 ea PO BID RF: 0 calcium carbonate [Calcium 500] 500 MG tablet 500 mg PO DAILY RF: 0 cholecalciferol (vitamin D3) [Vitamin D3] 2,000 UNIT capsule 2,000 unit PO DAILY RF: 0 [place] 1 tab PO TID RF: 0 prochlorperazine [Compazine] 25 mg suppository 25 mg SD TID PRN (Reason: nausea and vomiting associated with migraines) Qty: 10 RF: 0 ondansetron 4 mg tablet,disintegrating 4 mg PO Q6H PRN (Reason: nausea and vomiting) Qty: 14 RF: 0 acetaminophen 500 mg Capsule 1,000 mg PO Q6H PRNRF: 0 magnesium citrate 100 MG tablet 150 mg PO BID RF: 0 No Action ocular formula PO RF: 0 Discharge Instructions Instructions: Vertigo (ED) Additional Instructions: your xray showed a nodule in your lung which your primary care provider needs to know about as you may require follow up imaging if you feel more ill, have worsening symptoms of difficulty breathing return to the emergency department Discharge Data Discharge Date/Time-TO BE ENTERED AT DEPARTURE: 05/08/20 17:42 Medical Decision Making <Cierra Sheikh MD - Last Filed: 05/22/20 23:42> Kasia Lala is a 74-year-old woman who presented to the emergency department with chills, nausea, vomiting, lightheadedness, and vertigo since last night without history of vertigo in the past. On exam patient is well and not appearing. Benign examination of bilateral canals and TMs. Benign neurologic exam. There is no nystagmus. Concern for peripheral versus central vertigo, some increased concern for central vertigo given patient's age and no history of similar vertigo in the past. Also concern for atypical migraine, dehydration, electrolyte derangement, occult infection, other. Doubt acute coronary syndrome. Exam/history at this time is not consistent with sepsis, meningitis, subarachnoid hemorrhage, acute aortic pathology. Plan for IV fluid hydration, screening labs, chest x-ray, UA. Plan for CT head, MRI brain, MRA head and neck after discussion with Dr. Lehman of radiology regarding appropriate imaging studies at this time. Patient reports that she feels at baseline, symptoms resolved after meclizine. EKG and labs nondiagnostic. Patient without urinary symptoms, UA equivocal, culture pending. Chest x-ray shows pulmonary nodule, no acute process. Patient notified of incidental finding and need for follow-up. Patient signed out to Dr. Odonnell at time of shift change with imaging pending. Medical Records Medical records reviewed: Yes I reviewed the patient's medical records. Imaging Data Radiologic Study: Attestation: I personally reviewed and interpreted this imaging study as follows: Radiologist's impression: EXAM: XR CHEST 2V PA LATERAL CLINICAL HISTORY: chills, lightheadedness. TECHNIQUE: 2D digital imaging was performed. COMPARISON: CR PORTABLE AP CHEST from 01/23/2011 FINDINGS: Heart size is normal. The mediastinum is not widened. There is a density in the left lung apex which is more evident on the prior study. Some pleural thickening in the right lung apex also notable left so. No pleural effusions. No pneumothorax. No pulmonary edema. IMPRESSION: Nodular infiltrate left lung apex. Not evident on prior study 2010. Recommend follow-up CT scan. EXAM: CT HEAD WO CLINICAL HISTORY: VERTIGO. TECHNIQUE: Imaging Protocol: Axial computed tomography images with coronal and sagittal reformatted images were created and reviewed COMPARISON: CT HEAD WITHOUT CONTRAST from 01/23/2011 FINDINGS: There are no skull fractures nor fluid in the visualized paranasal sinuses. There is no evidence of intracranial hemorrhage, mass effect, or shift of midline structures. There are no extra-axial fluid collections. The ventricles are not enlarged or shifted and there is no blood within the ventricular system nor within the basal cisterns. Some calcification is seen within the internal carotid arteries at the skull base. IMPRESSION: No acute intracranial findings on this noninfused CT scan of the brain. Lab Data Lab results reviewed: Yes I reviewed the patient's lab results. Labs: 03/29/21 14:45 Urine - Reflex from Ua Urine Culture - Final Gram Positive Marissa,Mixed Laboratory Tests Range/Units 05/08/20 05/08/20 05/08/20 13:17 13:17 13:17 WBC (4.4-10.8) 10^3/uL 3.71 L RBC (3.93-5.22) 10^6/uL 3.84 L Hgb (11.2-15.7) g/dL 12.5 Hct (36.0-46.0) % 36.8 MCV (80-95) fL 95.8 H MCH (27.0-33.0) pg 32.6 MCHC (32.0-36.0) % 34.0 RDW (11.7-14.6) % 12.8 Plt Count (130-400) 10^3/uL 179 MPV (8.0-11.0) fL 9.5 Immature Gran % 0.3 Neutrophils % 72.8 Lymphocytes % 18.3 Monocytes % 7.8 Eosinophils % 0.5 Basophils % 0.3 Nucleated RBC % % 0 Absolute Neutrophils (1.2-6.7) 10^3/uL 2.70 Absolute Lymphocytes (1.2-3.4) 10^3/uL 0.68 L Absolute Monocytes (0.1-0.8) 10^3/uL 0.29 Absolute Eosinophils (0.0-0.7) 10^3/uL 0.02 Absolute Basophils (0.0-0.2) 10^3/uL 0.01 VBG Lactate (0.6-1.4) mmol/L 1.2 Sodium (136-145) mmol/L 134 L Potassium (3.5-5.1) mmol/L 3.9 Chloride (98-107) mmol/L 99 Carbon Dioxide (21.0-32.0) mmol/L 25.4 Anion Gap (3-11) mmol/L 9.6 BUN (7-18) mg/dL 12 Creatinine (0.55-1.02) mg/dL 0.7 Estimated GFR/1.73 m2 (mL/min/1.73m2) >= 60.00 Glucose (74-106) mg/dL 106 Calcium (8.5-10.1) mg/dL 8.8 Magnesium (1.8-2.4) mg/dL 1.9 Total Bilirubin (0.2-1.0) mg/dL 1.0 AST (15-37) U/L 18 ALT (14-59) U/L 25 Alkaline Phosphatase (46-116) U/L 79 Total Protein (6.4-8.2) g/dL 7.3 Albumin (3.4-5.0) g/dL 3.7 Urine Color (Yellow) Urine Clarity (Clear) Urine pH (5-8) Ur Specific [place] (1.005-1.025) Urine Protein (Negative) mg/dL Urine Ketones (Negative) mg/dL Urine Blood (Negative) Urine Nitrite (Negative) Urine Bilirubin (Negative) Urine Urobilinogen (Up TO 0.2) EU/dL Ur Leukocyte Esterase (Negative) Urine RBC (0-2) HPF Urine WBC (0-5) HPF Ur Epithelial Cells (Negative) HPF Urine Crystals (Negative) HPF Urine Bacteria (Negative) HPF Urine Casts (Negative) LPF Urine Mucus (Negative) Ur Culture Indicated? Urine Glucose (Negative) mg/dL COVID-19 Source SARS-CoV-2 (PCR) (Negative) Range/Units 05/08/20 05/08/20 13:50 14:45 WBC (4.4-10.8) 10^3/uL RBC (3.93-5.22) 10^6/uL Hgb (11.2-15.7) g/dL Hct (36.0-46.0) % MCV (80-95) fL MCH (27.0-33.0) pg MCHC (32.0-36.0) % RDW (11.7-14.6) % Plt Count (130-400) 10^3/uL MPV (8.0-11.0) fL Immature Gran % Neutrophils % Lymphocytes % Monocytes % Eosinophils % Basophils % Nucleated RBC % % Absolute Neutrophils (1.2-6.7) 10^3/uL Absolute Lymphocytes (1.2-3.4) 10^3/uL Absolute Monocytes (0.1-0.8) 10^3/uL Absolute Eosinophils (0.0-0.7) 10^3/uL Absolute Basophils (0.0-0.2) 10^3/uL VBG Lactate (0.6-1.4) mmol/L Sodium (136-145) mmol/L Potassium (3.5-5.1) mmol/L Chloride (98-107) mmol/L Carbon Dioxide (21.0-32.0) mmol/L Anion Gap (3-11) mmol/L BUN (7-18) mg/dL Creatinine (0.55-1.02) mg/dL Estimated GFR/1.73 m2 (mL/min/1.73m2) Glucose (74-106) mg/dL Calcium (8.5-10.1) mg/dL Magnesium (1.8-2.4) mg/dL Total Bilirubin (0.2-1.0) mg/dL AST (15-37) U/L ALT (14-59) U/L Alkaline Phosphatase (46-116) U/L Total Protein (6.4-8.2) g/dL Albumin (3.4-5.0) g/dL Urine Color (Yellow) Yellow Urine Clarity (Clear) Sl cloudy Urine pH (5-8) 7.5 Ur Specific [place] (1.005-1.025) 1.020 Urine Protein (Negative) mg/dL Negative Urine Ketones (Negative) mg/dL Trace H Urine Blood (Negative) Trace-intact H Urine Nitrite (Negative) Negative Urine Bilirubin (Negative) Negative Urine Urobilinogen (Up TO 0.2) EU/dL 0.2 Ur Leukocyte Esterase (Negative) Trace H Urine RBC (0-2) HPF 3-5 H Urine WBC (0-5) HPF 5-10 Ur Epithelial Cells (Negative) HPF Few Urine Crystals (Negative) HPF Few amorphous Urine Bacteria (Negative) HPF Few Urine Casts (Negative) LPF Negative Urine Mucus (Negative) Negative Ur Culture Indicated? Yes Urine Glucose (Negative) mg/dL Negative COVID-19 Source Nasal/nares SARS-CoV-2 (PCR) (Negative) Negative ECG Data Attestation: I personally reviewed and interpreted this ECG (s) as follows: Interpretation: EKG shows sinus bradycardia at 56, normal axis, T wave flattening aVL, no STEMI, nondiagnostic EKG <Eric Odonnell MD - Last Filed: 05/08/20 17:41> pt's imaging shows no acute emergent findings and she feels better ambulating on her own unassisted. Suspect peripheral vertigo and she feels well enough for d/c. She was informed of her cxr findings and importance of follow up with her pcp, return precautions given Imaging Data Radiologic Study: Attestation: I personally reviewed and interpreted this imaging study as follows: Imaging: MRI Radiologist's impression: PROCEDURE INFORMATION: Exam: MR Head Without Contrast Exam date and time: 05/08/2020 4:45 PM Age: 74 years old Clinical indication: Dizziness; Patient HX: New onset vertigo TECHNIQUE: Imaging protocol: MR of the head without contrast. Total images: 769 COMPARISON: CT HEAD WO 05/08/2020 3:38 PM FINDINGS: Brain: There are a few punctate foci of white matter disease mostly within the bilateral frontal lobe white matter. There is no supratentorial mass or edema. No diffusion restriction to suggest acute ischemia. No focal posterior fossa lesion. There is mild cerebellar atrophy. No cerebellar pontine angle mass. Cerebral ventricles: Normal. No ventriculomegaly. Bones/joints: Unremarkable. Paranasal sinuses: Normal as visualized. No acute sinusitis. Mastoid air cells: There is no mastoid effusion. Orbital cavity: Unremarkable. Soft tissues: Unremarkable. Other vasculature: There is normal signal void from the vessels at the skull base. IMPRESSION: 1. No acute finding. 2. Changes of mild probable chronic white matter disease and atrophy Radiologic Study #2: Attestation: I personally reviewed and interpreted this imaging study as follows: Imaging: MRI Radiologist's impression: PROCEDURE INFORMATION: Exam: MR Angiogram Head Without and With Contrast, Arteries Exam date and time: 05/08/2020 4:46 PM Age: 74 years old Clinical indication: Vertigo no acute findings Radiologic Study #3: Attestation: I personally reviewed and interpreted this imaging study as follows: Imaging: MRI Radiologist's impression: Exam: MR Angiography Neck Without Contrast Exam date and time: 05/08/2020 4:17 PM Age: 74 years old Clinical indication: Vertigo TECHNIQUE: Imaging protocol: Magnetic resonance angiography of the neck without contrast. Total images: 318 COMPARISON: SD US CAROTID 03/13/2020 1:44 PM FINDINGS: Right common carotid artery: No stenosis. No dissection or occlusion. Right internal carotid artery: Minimal atherosclerotic stenosis at its origin. No significant stenosis. No dissection or occlusion. Right external carotid artery: No stenosis. No dissection or occlusion of the origin. Right vertebral artery: No stenosis. No dissection or occlusion. Left common carotid artery: No stenosis. No dissection or occlusion. Left internal carotid artery: Minimal atherosclerotic stenosis at its origin. No significant stenosis. No dissection or occlusion. Left external carotid artery: No stenosis. No dissection or occlusion of the origin. Left vertebral artery: No stenosis. No dissection or occlusion. IMPRESSION: 1. Minimal atherosclerotic stenosis at the origin bilateral internal carotid arteries narrowing the vessel by less than 25% the. 2. No significant stenosis or occlusion. 3. No significant atherosclerotic disease in the vertebrobasilar system Lab Data Lab results reviewed: Yes I reviewed the patient's lab results. HPI <Cierra Sheikh MD - Last Filed: 05/22/20 23:42> General Mode of arrival: ambulatory . Date/Time Provider Initiated Documentation: 05/08/20 13:09 . Limitations to Documentation: no limitations . Information obtained by: patient, RN notes reviewed and old records reviewed . HPI Narrative: Adele Lala is a 74-year-old woman with history of hyperlipidemia, GERD, migraine presenting to emergency department with lightheadedness, nausea, and vertigo. Patient reports that she felt normal yesterday morning and afternoon, and then in the evening developed chills and nausea. Patient awoke at approximately 11 PM with significant spinning sensation and continued nausea. This persisted throughout the night when she would awaken intermittently. Patient tried to eat chicken broth this morning but vomited. Her vertigo has been persistent since awakening. Patient reports that if she sits still and does not turn her head her vertigo resolves, returns with turning her head or getting up. Patient reports that she also continues to feel nauseated and somewhat lightheaded when she stands. Patient reports that she has had similar nausea and vomiting with lightheadedness in the past associated with migraines which she has been seen here for several times. Patient reports that she took Compazine as prescribed for these episodes at 3 AM this morning and also at 11 AM this morning without change in symptoms. Patient reports that this episode feels the same as prior episodes except for vertigo, which she has not had before. She denies any pain, fever, diarrhea, constipation, rash, numbness, weakness, hearing changes, shortness of breath, cough. Related Data Home Medications Medication Instructions Recorded Confirmed [place] 1 tab PO TID 04/14/13 05/11/20 calcium carbonate [Calcium 500] 500 mg PO DAILY 04/14/13 05/11/20 cholecalciferol (vitamin D3) 2,000 unit PO DAILY 04/14/13 05/11/20 [Vitamin D3] cod liver oil 1 ea PO BID 04/14/13 05/11/20 multivitamin [Daily Vitamin] 1 ea PO DAILY 04/14/13 05/11/20 magnesium citrate 150 mg PO BID 07/11/16 05/11/20 prochlorperazine 25 mg rectal 25 mg SD TID PRN #10 tab-cap 11/18/18 05/11/20 suppository ondansetron 4 mg PO Q6H PRN #14 tab 04/14/19 05/11/20 sumatriptan succinate 50 mg tablet 50 mg PO ONCE PRN #30 tab-cap MDD 09/30/19 05/11/20 200 mg acetaminophen 1,000 mg PO Q6H PRN 12/13/19 05/11/20 meclizine 25 mg PO TID PRN #30 tab 05/08/20 05/11/20 ocular formula PO 05/11/20 05/11/20 Previous Rx's Medication Instructions Recorded prochlorperazine 25 mg rectal 25 mg SD TID PRN #10 tab-cap 11/18/18 suppository ondansetron 4 mg PO Q6H PRN #14 tab 04/14/19 sumatriptan succinate 50 mg tablet 50 mg PO ONCE PRN #30 tab-cap MDD 09/30/19 200 mg meclizine 25 mg PO TID PRN #30 tab 05/08/20 Allergies Allergy/AdvReac Type Severity Reaction Status Date / Time cefuroxime axetil Allergy Intermediate Skin Rash Verified 05/11/20 10:37 [From Ceftin] aspirin AdvReac Intermediate GI upset Verified 05/11/20 10:37 General Stated Complaint: Dizzy/Sync JULIANNE: 3 Review of Systems <Cierra Sheikh MD - Last Filed: 05/22/20 23:42> Narrative: Constitutional: denies fevers Eyes: denies eye pain ENT: denies ear pain, dental pain, sore throat Cardiovascular: denies chest pain Respiratory: denies SOB, cough GI: denies abdominal pain, diarrhea, reports vomiting : denies flank pain MSK: denies back pain, neck pain, arthralgias, myalgias Skin: denies rash Neuro: denies headaches, numbness, weakness, reports vertigo PFSH <Cierra Sheikh MD - Last Filed: 05/22/20 23:42> Medical History Female genital prolapse (04/17/11) Gastroesophageal reflux disease (04/01/11) History of gastric ulcer Hyperlipidemia (07/21/17) 08/2018 labs: 10-year ASCVD risk = ~10.9% --> NL HS-CRP in 2018, no statin; 2020: stop checking lipid panel due to age Iliotibial band syndrome of left side Distal insertion injection: 07/19/2019 Microscopic hematuria (07/31/17) 07/24/17 cystostopy: 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 Extraction of cataract (07/16/16) B/L (L eye initially aborted due to increased pressure then later completed successfully). Dr Villavicencio. Hx of colonoscopy Hx of esophagogastroduodenoscopy removal lens material w/ lens implant, left (08/05/16) Status post rotator cuff surgery (~2015) Right Family History Brother Diabetes adult onset. Grandmother Diabetes Social History Smoking/Tobacco Use Status: Never Smoking risk assessment performed?: Yes Alcohol Intake: current Alcohol Intake frequency: 0-2 drinks per day Alcohol type: wine Drug use: Never Substance use type: does not use Caregiver/Support person: No Number of Children: 3 Communication Needs: None Current gender identity: female What type of physical activity do you participate in: walking Duration: 60-90 minutes/day Frequency: daily Seatbelt use: always Helmet use: Yes Drive intox or ride w/intox ross carrier driver: No Water heater temp set <120 deg: Yes Working smoke detector in home: Yes Fire extinguisher in home: Yes Carbon monox detector in home: Yes Firearms in home: No Do you feel safe at home: Yes Do you feel safe in your relationship?: Yes Female Reproductive History Menstrual Menopause type: natural Exam <Cierra Sheikh MD - Last Filed: 05/22/20 23:42> Narrative Exam Narrative: Constitutional: well and [id number], pleasant, conversing normally HENT: head atraumatic/normocephalic/normal inspection, mucous membranes moist Eyes: conjunctiva normal, sclera normal, pupils 3mm b/l equal round reactive to light and accommodation, extraocular movements intact, no nystagmus Neck: no stridor, normal ROM, trachea midline Chest: normal inspection Resp: normal work of breathing, LCTAB Cardio: normal rate, normal rhythm, no murmur appreciated Back: normal inspection, no rash Skin: warm, dry, normal color, no rash Neuro: alert, not altered, cranial nerves II through XII intact, motor 5 out of 5 throughout, normal tone Ext: no edema, no posterior calf tenderness to palpation Psych: normal mood, normal affect, normal behavior Course <Cierra Sheikh MD - Last Filed: 05/22/20 23:42> Vital Signs Vital signs: Vital Signs Temperature 36.3 C L 05/08/20 13:10 Pulse 57 L 05/08/20 13:10 Respiratory Rate 16 05/08/20 13:10 Blood Pressure 138/73 05/08/20 13:10 Pulse Oximetry 99 05/08/20 13:10 Temperature 36.3 C L 05/08/20 13:10 Temperature Source Skin 05/08/20 13:10 Pulse 70 05/08/20 15:00 Pulse 60 05/08/20 15:20 Respiratory Rate 13 05/08/20 15:20 Respiratory Effort 05/08/20 15:23 Respiratory Depth Normal 05/08/20 15:23 Respiratory Pattern Normal 05/08/20 15:23 Blood Pressure 123/67 05/08/20 15:00 Blood Pressure Mean 79 05/08/20 15:00 Blood Pressure Position Supine 05/08/20 13:10 Pulse Oximetry 99 05/08/20 15:20 Oxygen Delivery Method Room Air 05/08/20 13:10 Oxygen Flow Rate 0 05/08/20 13:10 Pain Level 0 05/08/20 13:10 Lab/Test Results Lab/Test Results: 05/08/20 14:45 Urine - Reflex from Ua Urine Culture - Pending Laboratory Tests Range/Units 05/08/20 05/08/20 05/08/20 13:17 13:17 13:17 WBC (4.4-10.8) 10^3/uL 3.71 L RBC (3.93-5.22) 10^6/uL 3.84 L Hgb (11.2-15.7) g/dL 12.5 Hct (36.0-46.0) % 36.8 MCV (80-95) fL 95.8 H MCH (27.0-33.0) pg 32.6 MCHC (32.0-36.0) % 34.0 RDW (11.7-14.6) % 12.8 Plt Count (130-400) 10^3/uL 179 MPV (8.0-11.0) fL 9.5 Immature Gran % 0.3 Neutrophils % 72.8 Lymphocytes % 18.3 Monocytes % 7.8 Eosinophils % 0.5 Basophils % 0.3 Nucleated RBC % % 0 Absolute Neutrophils (1.2-6.7) 10^3/uL 2.70 Absolute Lymphocytes (1.2-3.4) 10^3/uL 0.68 L Absolute Monocytes (0.1-0.8) 10^3/uL 0.29 Absolute Eosinophils (0.0-0.7) 10^3/uL 0.02 Absolute Basophils (0.0-0.2) 10^3/uL 0.01 VBG Lactate (0.6-1.4) mmol/L 1.2 Sodium (136-145) mmol/L 134 L Potassium (3.5-5.1) mmol/L 3.9 Chloride (98-107) mmol/L 99 Carbon Dioxide (21.0-32.0) mmol/L 25.4 Anion Gap (3-11) mmol/L 9.6 BUN (7-18) mg/dL 12 Creatinine (0.55-1.02) mg/dL 0.7 Estimated GFR/1.73 m2 (mL/min/1.73m2) >= 60.00 Glucose (74-106) mg/dL 106 Calcium (8.5-10.1) mg/dL 8.8 Magnesium (1.8-2.4) mg/dL 1.9 Total Bilirubin (0.2-1.0) mg/dL 1.0 AST (15-37) U/L 18 ALT (14-59) U/L 25 Alkaline Phosphatase (46-116) U/L 79 Total Protein (6.4-8.2) g/dL 7.3 Albumin (3.4-5.0) g/dL 3.7 Urine Color (Yellow) Urine Clarity (Clear) Urine pH (5-8) Ur Specific [place] (1.005-1.025) Urine Protein (Negative) mg/dL Urine Ketones (Negative) mg/dL Urine Blood (Negative) Urine Nitrite (Negative) Urine Bilirubin (Negative) Urine Urobilinogen (Up TO 0.2) EU/dL Ur Leukocyte Esterase (Negative) Urine RBC (0-2) HPF Urine WBC (0-5) HPF Ur Epithelial Cells (Negative) HPF Urine Crystals (Negative) HPF Urine Bacteria (Negative) HPF Urine Casts (Negative) LPF Urine Mucus (Negative) Ur Culture Indicated? Urine Glucose (Negative) mg/dL COVID-19 Source SARS-CoV-2 (PCR) (Negative) Range/Units 05/08/20 05/08/20 13:50 14:45 WBC (4.4-10.8) 10^3/uL RBC (3.93-5.22) 10^6/uL Hgb (11.2-15.7) g/dL Hct (36.0-46.0) % MCV (80-95) fL MCH (27.0-33.0) pg MCHC (32.0-36.0) % RDW (11.7-14.6) % Plt Count (130-400) 10^3/uL MPV (8.0-11.0) fL Immature Gran % Neutrophils % Lymphocytes % Monocytes % Eosinophils % Basophils % Nucleated RBC % % Absolute Neutrophils (1.2-6.7) 10^3/uL Absolute Lymphocytes (1.2-3.4) 10^3/uL Absolute Monocytes (0.1-0.8) 10^3/uL Absolute Eosinophils (0.0-0.7) 10^3/uL Absolute Basophils (0.0-0.2) 10^3/uL VBG Lactate (0.6-1.4) mmol/L Sodium (136-145) mmol/L Potassium (3.5-5.1) mmol/L Chloride (98-107) mmol/L Carbon Dioxide (21.0-32.0) mmol/L Anion Gap (3-11) mmol/L BUN (7-18) mg/dL Creatinine (0.55-1.02) mg/dL Estimated GFR/1.73 m2 (mL/min/1.73m2) Glucose (74-106) mg/dL Calcium (8.5-10.1) mg/dL Magnesium (1.8-2.4) mg/dL Total Bilirubin (0.2-1.0) mg/dL AST (15-37) U/L ALT (14-59) U/L Alkaline Phosphatase (46-116) U/L Total Protein (6.4-8.2) g/dL Albumin (3.4-5.0) g/dL Urine Color (Yellow) Yellow Urine Clarity (Clear) Sl cloudy Urine pH (5-8) 7.5 Ur Specific [place] (1.005-1.025) 1.020 Urine Protein (Negative) mg/dL Negative Urine Ketones (Negative) mg/dL Trace H Urine Blood (Negative) Trace-intact H Urine Nitrite (Negative) Negative Urine Bilirubin (Negative) Negative Urine Urobilinogen (Up TO 0.2) EU/dL 0.2 Ur Leukocyte Esterase (Negative) Trace H Urine RBC (0-2) HPF 3-5 H Urine WBC (0-5) HPF 5-10 Ur Epithelial Cells (Negative) HPF Few Urine Crystals (Negative) HPF Few amorphous Urine Bacteria (Negative) HPF Few Urine Casts (Negative) LPF Negative Urine Mucus (Negative) Negative Ur Culture Indicated? Yes Urine Glucose (Negative) mg/dL Negative COVID-19 Source Nasal/nares SARS-CoV-2 (PCR) (Negative) Negative Sign Out <Cierra Sheikh MD - Last Filed: 05/22/20 23:42> Sign Out Data: Sign Out Comment: Patient signed out to Dr. Odonnell at time of shift change with imaging results, disposition pending Last updated by Cierra Sheikh MD at 05/08/20 16:46
--- NOTE | 2020-05-08 15:43 | DI.CT_ITS ---
EXAM: CT HEAD WO CLINICAL HISTORY: VERTIGO. TECHNIQUE: Imaging Protocol: Axial computed tomography images with coronal and sagittal reformatted images were created and reviewed COMPARISON: CT HEAD WITHOUT CONTRAST from 01/23/2011 FINDINGS: There are no skull fractures nor fluid in the visualized paranasal sinuses. There is no evidence of intracranial hemorrhage, mass effect, or shift of midline structures. There are no extra-axial fluid collections. The ventricles are not enlarged or shifted and there is no blo od within the ventricular system nor within the basal cisterns. Some calcification is seen within the internal carotid arteries at the skull base. IMPRESSION: No acute intracranial findings on this noninfused CT scan of the brain. RADIATION DOSE DELIVERED: 638.41mGy.cm Total DLP DATA REPOSITORY: All CT scans at this facility are submitted to the National Radiology Data Registry (NRDR) Dose Index Registry (DIR) with the [employer] (ACR). RADIATION OPTIMIZATION: All CT scans at this facility use at least one of these dose optimization te chniques: automated exposure control; mA and/or kV adjustment per patient size (includes targeted exa ms where dose is matched to clinical indication); or iterative reconstruction.
--- NOTE | 2020-05-08 17:07 | DI.VRAD_ITS ---
PROCEDURE INFORMATION: Exam: MR Angiography Neck Without Contrast Exam date and time: 05/08/2020 4:17 PM Age: 74 years old Clinical indication: Vertigo TECHNIQUE: Imaging protocol: Magnetic resonance angiography of the neck without contrast. Total images: 318 COMPARISON: SD US CAROTID 03/13/2020 1:44 PM FINDINGS: Right common carotid artery: No stenosis. No dissection or occlusion. Right internal carotid artery: Minimal atherosclerotic stenosis at its origin. No significant stenosis. No dissection or occlusion. Right external carotid artery: No stenosis. No dissection or occlusion of the origin. Right vertebral artery: No stenosis. No dissection or occlusion. Left common carotid artery: No stenosis. No dissection or occlusion. Left internal carotid artery: Minimal atherosclerotic stenosis at its origin. No significant stenosis. No dissection or occlusion. Left external carotid artery: No stenosis. No dissection or occlusion of the origin. Left vertebral artery: No stenosis. No dissection or occlusion. IMPRESSION: 1. Minimal atherosclerotic stenosis at the origin bilateral internal carotid arteries narrowing the vessel by less than 25% the. 2. No significant stenosis or occlusion. 3. No significant atherosclerotic disease in the vertebrobasilar system. REFERENCES: NASCET CRITERIA. The degree of internal carotid artery stenosis is based on NASCET criteria. Normal is no stenosis. Mild is less than 50% stenosis. Moderate is 50-69% stenosis. Severe is 70% to 99% stenosis. Total occlusion is no detectable patent lumen. Dictated and Authenticated by: Kai Nuñez MD. Ordering:WOODROW Norton MD
--- NOTE | 2020-05-08 17:18 | DI.VRAD_ITS ---
PROCEDURE INFORMATION: Exam: MR Head Without Contrast Exam date and time: 05/08/2020 4:45 PM Age: 74 years old Clinical indication: Dizziness; Patient HX: New onset vertigo TECHNIQUE: Imaging protocol: MR of the head without contrast. Total images: 769 COMPARISON: CT HEAD WO 05/08/2020 3:38 PM FINDINGS: Brain: There are a few punctate foci of white matter disease mostly within the bilateral frontal lobe white matter. There is no supratentorial mass or edema. No diffusion restriction to suggest acute ischemia. No focal posterior fossa lesion. There is mild cerebellar atrophy. No cerebellar pontine angle mass. Cerebral ventricles: Normal. No ventriculomegaly. Bones/joints: Unremarkable. Paranasal sinuses: Normal as visualized. No acute sinusitis. Mastoid air cells: There is no mastoid effusion. Orbital cavity: Unremarkable. Soft tissues: Unremarkable. Other vasculature: There is normal signal void from the vessels at the skull base. IMPRESSION: 1. No acute finding. 2. Changes of mild probable chronic white matter disease and atrophy. Dictated and Authenticated by: Kai Nuñez MD. Ordering:WOODROW Norton MD
--- NOTE | 2020-05-08 17:22 | DI.VRAD_ITS ---
PROCEDURE INFORMATION: Exam: MR Angiogram Head Without and With Contrast, Arteries Exam date and time: 05/08/2020 4:46 PM Age: 74 years old Clinical indication: Vertigo TECHNIQUE: Imaging protocol: MR angiogram head without and with intravenous contrast. Exam focused on the arteries. Total images: 300 COMPARISON: CT HEAD WO 05/08/2020 3:38 PM FINDINGS: ANTERIOR CIRCULATION: Right internal carotid artery: Intracranial segment is patent with no significant stenosis. No aneurysm. Right middle cerebral artery: No occlusion or significant stenosis. No aneurysm. Right anterior cerebral artery: No occlusion or significant stenosis. No aneurysm. Left internal carotid artery: Intracranial segment is patent with no significant stenosis. No aneurysm. Left middle cerebral artery: No occlusion or significant stenosis. No aneurysm. Left anterior cerebral artery: No occlusion or significant stenosis. No aneurysm. POSTERIOR CIRCULATION: Right vertebral artery: No occlusion or significant stenosis. No aneurysm. Left vertebral artery: Mild narrowing of the distal most left vertebral artery which may be congenital. No aneurysm. Basilar artery: No occlusion or significant stenosis. No aneurysm. Right posterior cerebral artery: No occlusion or significant stenosis. No aneurysm. Left posterior cerebral artery: No occlusion or significant stenosis. No aneurysm. IMPRESSION: No significant stenosis or occlusion. Dictated and Authenticated by: Kai Nuñez MD. Ordering:WOODROW Norton MD
--- NOTE | 2020-05-08 17:28 | NUR.NOTE ---
ambulated patient through department without difficulty denies dizziness/SOB MD notified Nursing Note:
== END 2020-05-08 17:42 | disposition home or self-care (01) ==
PROVIDERS: Student in an Organized Health Care Education/Training Program; Emergency Provider Emergency Medicine; PCP Nurse Practitioner Family
DX: R42 Dizziness and giddiness (principal); R91.1 Solitary pulmonary nodule
CPT/HCPCS: 70544; 70547; 80053; 87635; 93005; 96360; 99285; 70450; 70551; 71046; 81003; 81015; 83605; 83735; 85025; 87086; 93010; 99284

== ENCOUNTER → 2020-05-15 08:42 | Outpatient (BNVA) | payer MEDICARE, OTHER, SELFPAY | PROVIDERS: PCP Nurse Practitioner Family; Referring Provider Nurse Practitioner Family; Visit Provider Student in an Organized Health Care Education/Training Program | DX: M76.32 Iliotibial band syndrome, left leg (principal); M25.562 Pain in left knee | CPT/HCPCS: 99213 ==

== ENCOUNTER 2020-05-18 00:47 | Outpatient (CLI) | payer MEDICARE, OTHER, SELFPAY ==
--- NOTE | 2020-05-18 06:30 | DI.MRI_ITS ---
EXAM: MR LOWER JOINT LT WO CLINICAL HISTORY: LT KNEE PAIN, M25.562,ILIOTIBIAL BAND SYNDROME,LT M76.32. TECHNIQUE: Multiplanar multisequence MRI was performed. COMPARISON: No exams were available for comparison FINDINGS: There is thickening of the iliotibial band distally at the insertion on the anterolateral aspect of t he tibia. There is surrounding edema. There is a mild amount of edema in Hoffa's fat pad. The late ral collateral ligament and biceps femoris tendons are unremarkable. The quadriceps and patellar tendons and lateral retinaculum are unremarkable. There is a small joint effusion and small Iraheta's cyst. The anterior cruciate ligament appears thinned. Posterior cruciate ligament and medial collateral ligament appear intact. The medial meniscus shows abnormal horizontal signal in the posterior horn. There is an adjacent meni scal cyst seen at the posteromedial aspect of the meniscus. The body of the medial meniscus shows dif fusely increased signal and thickening. Anterior horn appears diminutive. The lateral meniscus is unr emarkable. There is thinning of the cartilage extending down to bone at the patellar apex and medial patellar fa cet. Cartilage overlying the femoral condyles and tibial plateaus appear intact. The marrow signal is normal. IMPRESSION: 1. Thickening and inflammation at the distal iliotibial band. 2. Horizontal tear of the posterior horn of the medial meniscus. Diffusely a normal high signal in t he body. 3. 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 DATA REPOSITORY:
== END 2020-05-18 01:07 ==
PROVIDERS: PCP Nurse Practitioner Family; Visit Provider Student in an Organized Health Care Education/Training Program
DX: M25.562 Pain in left knee (principal); M76.32 Iliotibial band syndrome, left leg; M22.42 Chondromalacia patellae, left knee
CPT/HCPCS: 73721

== ENCOUNTER 2020-08-09 01:33 | Outpatient (CLI) | payer MEDICARE, OTHER, SELFPAY ==
[2020-08-09 08:01] LABS: CREATININE 0.8 mg/dL (0.55-1.02)
--- NOTE | 2020-08-09 08:43 | DI.CT_ITS ---
Exam(s) CT CHEST W EXAM: CT CHEST W CLINICAL HISTORY: f/u nodules left upper lung, R91.1. TECHNIQUE: Multi planar reconstructions were performed. CONTRAST MATERIAL: Omnipaque 350; 70 cc COMPARISON: CR PORTABLE AP CHEST from 01/23/2011 CR XR CHEST 2V PA LATERAL from 05/08/2020 CR XR CHEST 2V PA LATERAL from 05/08/2020 FINDINGS: CHEST: LUNGS: There is scarring in both lung apices, more so on the left side and this accounts for the find ing on the chest radiograph. There are no other significant focal left lung findings. No pleural ef fusions. No pneumothorax. In the opposite-right lung there are no significant focal findings subjacent to the apical and sub ap ical scarring. However, on the medial aspect of the right sub apical region there is a 9 by 8 millim eter subpleural nodular infiltrate which is separate from the other and will require follow-up MEDIASTINUM: There is no hilar nor mediastinal adenopathy. Visualized thyroid unremarkable. CARDIAC: Heart size is normal. There is no pericardial effusion.Caliber of the thoracic aorta is wit hin normal limits. VISUALIZED UPPER ABDOMEN:There are no significant adrenal masses. Hepatic steatosis. Few benign bianca al cysts are noted. Largest of these is inferior pole left kidney measuring 1 0.2 x 1.2 cm. The ent nancy kidneys are not included in the field of view. OSSEOUS: No significant osseous lesions.. IMPRESSION: 1. There is apical in sub apical scarring in both upper lobe, slightly more prominent on the left kaz e, this accounting for what is described on the recent chest x-ray. 2. In the right lung sub apical region there is a 9 x 8 millimeter subpleural nodular infiltrate whic h is separate from the scarring and will require follow-up CT scan in a few months time to ensure sta bility. 3. There are no pleural effusions.. No intrathoracic adenopathy. RADIATION DOSE DELIVERED: 440.81mGy.cm Total DLP DATA REPOSITORY: All CT scans at this facility are submitted to the National Radiology Data Registry (NRDR) Dose Index Registry (DIR) with the [employer] (ACR). RADIATION OPTIMIZATION: All CT scans at this facility use at least one of these dose optimization te chniques: automated exposure control; mA and/or kV adjustment per patient size (includes targeted exa ms where dose is matched to clinical indication); or iterative reconstruction.
[2020-08-09] MEDS: Normal Saline - Diluent 50 ML VIAL IV (08:44)
[2020-08-09] MEDS: Omnipaque 350 MG/ML 100 ML BTL IJ (08:44)
== END 2020-08-09 01:53 ==
PROVIDERS: PCP Nurse Practitioner Family; Visit Provider Nurse Practitioner Family
DX: R91.1 Solitary pulmonary nodule (principal); R91.8 Other nonspecific abnormal finding of lung field
CPT/HCPCS: 71260; 82565; J3490

== ENCOUNTER 2020-10-26 01:50 | Outpatient (CLI) | payer MEDICARE, OTHER, SELFPAY ==
--- NOTE | 2020-10-26 09:00 | DI.CT_ITS ---
Exam(s) CT CHEST WO EXAM: CT CHEST WO CLINICAL HISTORY: 3 mo f/u R lung nodular infiltrate R91.1 SOLITARY PULMONARY NODULE. TECHNIQUE: Imaging protocol: Axial computed tomography images were obtained and coronal and sagittal reformatted images were created and reviewed. COMPARISON: CT CT CHEST W from 08/09/2020 FINDINGS: Tracheobronchial tree: Patent where visualized. Pulmonary parenchyma: No consolidation or dominant measurable mass. There is again seen biapical scar ring. There has been no change in the area of nodularity in the medial right lung apex. It measures 0.8 cm. Subpleural blebs and pleural nodular scarring are again seen and are stable. No new pulmon yanci nodules. Mediastinum and Katie: No dominant adenopathy or fluid collection. Pleura: No effusion or pneumothorax. Heart: The heart is not dilated. Mild coronary artery calcification. No pericardial effusion. Aorta: Thoracic aorta non-dilated. Atherosclerosis. Upper abdomen: Unremarkable. Lymph nodes: Stable mildly prominent mediastinal lymph nodes are noted. No axillary adenopathy is pr esent. Soft tissues: Unremarkable. Bones:Within normal limits. IMPRESSION: Stable pulmonary nodules. A 3 to six-month follow-up CT scan is recommended for re-evaluation. RADIATION DOSE DELIVERED: 370.18mGy.cm Total DLP 370.18mGy.cm Total DLP DATA REPOSITORY: All CT scans at this facility are submitted to the National Radiology Data Registry (NRDR) Dose Index Registry (DIR) with the [employer] (ACR). RADIATION OPTIMIZATION: All CT scans at this facility use at least one of these dose optimization te chniques: automated exposure control; mA and/or kV adjustment per patient size (includes targeted exa ms where dose is matched to clinical indication); or iterative reconstruction.
== END 2020-10-26 02:10 ==
PROVIDERS: PCP Nurse Practitioner Family; Visit Provider Nurse Practitioner Family
DX: R91.1 Solitary pulmonary nodule (principal)
CPT/HCPCS: 71250

== ENCOUNTER 2020-11-03 03:19 | Outpatient (CLI) | payer MEDICARE, OTHER, SELFPAY ==
[2020-11-03 07:38] LABS: Abs Immature Grans 0.01 10^3/uL (0.0-0.06); Absolute Basophil Count 0.02 10^3/uL (0.0-0.2); Absolute Eosinophil Count 0.11 10^3/uL (0.0-0.7); Absolute Monocyte Count 0.29 10^3/uL (0.1-0.8); Absolute Neutrophil Count 1.37 10^3/uL (1.2-6.7); Basophils % 0.9; Eosinophils % 4.8; HCT 35.2 % (36.0-46.0); HGB 11.8 g/dL (11.2-15.7); Immature Grans % 0.4; Lymphocytes % 21.7; MCH 32.2 pg (27.0-33.0); MCHC 33.5 % (32.0-36.0); MCV 95.9 fL (80-95); MPV 9.1 fL (8.0-11.0); Monocytes % 12.6; Neutrophils % 59.6; Nucleated RBC 0 %; Platelet Count 199 10^3/uL (130-400); RBC 3.67 10^6/uL (3.93-5.22); RDW 13.5 % (11.7-14.6)
[2020-11-03 07:49] LABS: Prothrombin Time 10.1 sec (9.3-11.0)
[2020-11-03 09:24] LABS: Iron 142 ug/dL (50-170); Total Iron Binding Capacity 347 ug/dL (250-450); Transferrin Sat 41 % (15-50)
[2020-11-03 09:36] LABS: ALT 31 U/L (14-59); AST 22 U/L (15-37); Albumin 3.7 g/dL (3.4-5.0); Alkaline Phosphatase 70 U/L (46-116); Anion Gap 7.9 mmol/L (3-11); BUN 11 mg/dL (7-18); Bilirubin, Total 1.1 mg/dL (0.2-1.0); CO2 28.1 mmol/L (21.0-32.0); CREATININE 0.8 mg/dL (0.55-1.02); Calcium 8.9 mg/dL (8.5-10.1); Chloride 103 mmol/L (98-107); Ferritin 81 ng/mL (8-252); Glucose 87 mg/dL (74-106); Potassium 4.1 mmol/L (3.5-5.1); Sodium 139 mmol/L (136-145); Total Protein 7.1 g/dL (6.4-8.2)
[2020-11-06 10:19] LABS: HBs Antibody, Quant <3.1 mIU/mL (See Note); Hepatitis B Surface Ab Negative (See Note)
[2020-11-06 10:38] LABS: Hepatitis B Surface Ag Negative (Negative)
[2020-11-06 11:03] LABS: Hep B Core Antibody Negative (Negative)
[2020-11-06 11:08] LABS: Hep A Total Ab w Rflx IgM Negative (Negative)
[2020-11-06 11:16] LABS: Hepatitis C Ab w Rflx HCV PCR Negative (Negative)
[2020-11-08 12:25] LABS: Bilirubin, Direct 0.2 mg/dL (0.0-0.2)
== END 2020-11-03 03:20 | disposition home or self-care (01) ==
LOC: LBO 03:19
PROVIDERS: PCP Nurse Practitioner Family; Visit Provider Nurse Practitioner Family
DX: K76.0 Fatty (change of) liver, not elsewhere classified (principal); E80.6 Other disorders of bilirubin metabolism
CPT/HCPCS: 36415; 80053; 86704; 86706; 86709; 86803; 87340; 82248; 82728; 83540; 83550; 85025; 85610

== ENCOUNTER 2021-01-29 00:58 | Outpatient (CLI) | payer MEDICARE, OTHER, SELFPAY ==
--- NOTE | 2021-01-29 13:02 | DI.CT_ITS ---
Exam(s) CT CHEST WO EXAM: CT CHEST WO CLINICAL HISTORY: 3 month re-evaluation of rt lung nodule,r91.1 TECHNIQUE: Imaging Protocol: Axial computed tomography images with coronal and sagittal reformatted images were created and reviewed CONTRAST MATERIAL: Intravenous: Omnipaque 350 Contrast volume:structured data in ml. COMPARISON: CR XR CHEST 2V PA LATERAL from 05/08/2020 CR XR CHEST 2V PA LATERAL from 05/08/[address] CHEST W from 08/09/[address] CHEST W from 08/09/[address] CHEST WO from 10/26/[address] CHEST WO from 10/26/2020 FINDINGS: Tracheobronchial tree: No bronchiectasis or mucous plugging. Mediastinum and Katie: No dominant adenopathy or fluid collection. Pulmonary parenchyma: Bilateral upper lobe scarring in. Decrease in prominence of a questioned area of nodularity in the right upper lobe posteriorly, adjacent to the area of scarring. The findings ar e consistent with scarring rather than pulmonary mass. No new nodules or infiltrates are seen. A sm all left upper lobe bleb or cyst is noted. Pleura: No effusion or pneumothorax. Heart: The heart is not dilated. Minimal coronary artery calcifications are seen. Aorta: Thoracic aorta non-dilated. Upper abdomen: Unremarkable. Lymph nodes: Stable small mediastinal lymph nodes. Bones: Degenerative disc changes. Tubes, Catheters, and Lines: Soft tissues: Unremarkable. IMPRESSION: Decrease in prominence in questioned right upper lobe nodule among in area of scarring. Follow-up e xam in 1 year could be considered. RADIATION DOSE DELIVERED: 320.64mGy.cm Total DLP DATA REPOSITORY: All CT scans at this facility are submitted to the National Radiology Data Registry (NRDR) Dose Index Registry (DIR) with the [employer] (ACR). RADIATION OPTIMIZATION: All CT scans at this facility use at least one of these dose optimization te chniques: automated exposure control; mA and/or kV adjustment per patient size (includes targeted exa ms where dose is matched to clinical indication); or iterative reconstruction.
== END 2021-01-29 01:18 ==
PROVIDERS: PCP Nurse Practitioner Family; Visit Provider Student in an Organized Health Care Education/Training Program
DX: R91.1 Solitary pulmonary nodule (principal); J98.4 Other disorders of lung
CPT/HCPCS: 71250

== ENCOUNTER 2021-02-13 07:46 | Emergency (ER) | payer MEDICARE, OTHER, SELFPAY ==
[2021-02-13] VITALS (13 sets, daily range): BP systolic 112–133; BP diastolic 52–63; PULSE 55–72; RESP 9–17; TEMP 36.6; O2SAT 100
--- NOTE | 2021-02-13 07:45 | RT.EKG_ITS ---
APPROVED REPORT Exam: Resting ECG Reason for Exam: weak,vomiting chills Patient Location: E HR:57 bpm ECG Measurements Heart Rate 57 AXIS ID 170 P 60 QRSd 91 QRS 42 QT 445 T 56 QTc 434 Conclusion Sinus bradycardia...rate< 60 Physician: no stemi
--- NOTE | 2021-02-13 08:00 | DI.CT_ITS ---
Exam(s) CT ABDOMEN PELVIS WO EXAM: CT ABDOMEN PELVIS WO CLINICAL HISTORY: vomiting, epigastric pain. TECHNIQUE: Imaging Protocol: Axial computed tomography images with coronal and sagittal reformatted images were created and reviewed. COMPARISON: CT ABD/PELVIS WO W CONTRAST from 06/25/2017 CT ABD/PELVIS WO W CONTRAST from 06/25/2017 FINDINGS: ABDOMEN: Lung Bases: Normal where visualized. Liver: Normal density. No measurable mass. Gallbladder and biliary tract: No radiodense calculus or biliary ductal dilation. Pancreas: Normal density, no abnormal calcifications or inflammatory process. Spleen: Normal. Calcified granuloma in the spleen. Kidneys: Normal size, contour and axis.Stable right cortical calcification. No ureterolithiasis or h ydronephrosis. Stable left renal cyst. Adrenal glands: No mass is seen. Lymph nodes: Within normal limits. Abdominal Aorta: Abdominal portion non-dilated. Atherosclerosis. PELVIS: Bladder:Symmetric distention, no gross wall thickening. Bowel: No evidence of bowel obstruction. Mild wall thickening is seen in loops of bowel in the left upper quadrant. This may represent enteritis. Appendix is unremarkable. There is small to moderate amount of stool throughout the colon. Peritoneal cavity: No ascites, collection or mesenteric inflammatory response. No free air. Reproductive organs: Within normal limits. 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 There is minimal spondylolisthesis of L5 on S1. Mode rately severe degenerative changes are present throughout the lumbar spine and lower thoracic spine. Facet arthropathy is seen at multiple levels. Soft Tissues: Within normal limits. IMPRESSION: 1. Question of mild thickening of the wall of small bowel loops in the left upper quadrant. This may represent enteritis. 2. Results of this exam have been verbally communicated with provider. RADIATION DOSE DELIVERED: 501.08mGy.cm Total DLP DATA REPOSITORY: All CT scans at this facility are submitted to the National Radiology Data Registry (NRDR) Dose Index Registry (DIR) with the [employer] (ACR). RADIATION OPTIMIZATION: All CT scans at this facility use at least one of these dose optimization te chniques: automated exposure control; mA and/or kV adjustment per patient size (includes targeted exa ms where dose is matched to clinical indication); or iterative reconstruction.
--- NOTE | 2021-02-13 08:10 | W.ED.GENAD ---
Discharge Plan Disposition Patient Disposition: HOME Condition: Good Discharge Details Clinical Impression: Enteritis, Vomiting, Dehydration, Vertigo Primary Care Provider: Jessica Ellis ED Provider: Kyler Baugh Home Meds and New Rx's Prescriptions: Continued ocular formula PO RF: 0 multivitamin [Daily Vitamin] 1 EACH tablet 1 ea PO DAILY RF: 0 cod liver oil 1 EACH capsule 1 ea PO BID RF: 0 calcium carbonate [Calcium 500] 500 MG tablet 500 mg PO DAILY RF: 0 cholecalciferol (vitamin D3) [Vitamin D3] 2,000 UNIT capsule 2,000 unit PO DAILY RF: 0 glasgow primrose 1 tab PO TID RF: 0 prochlorperazine [Compazine] 25 mg suppository 25 mg VA TID PRN (Reason: nausea and vomiting associated with migraines) Qty: 10 RF: 0 sumatriptan succinate 50 mg tablet 50 mg PO ONCE MDD 200 mg PRN (Reason: migraine) Qty: 30 RF: 3 ondansetron 4 mg tablet,disintegrating 4 mg PO Q6H PRN (Reason: nausea and vomiting) Qty: 14 RF: 0 acetaminophen 500 mg Capsule 1,000 mg PO Q6H PRNRF: 0 meclizine 25 mg tablet 25 mg PO TID PRN (Reason: dizziness) Qty: 30 RF: 0 magnesium citrate 100 MG tablet 150 mg PO BID RF: 0 Discharge Instructions Instructions: Dehydration (ED), Enteritis (ED) Additional Instructions: At this time you have mild enteritis which is mild inflammation of your small intestines. This is likely from a virus or something you ate. Please continue to hydrate well at home. Take the Zofran that we have given you as needed for nausea. Continue to take your home meclizine. If you notice any worsening of your symptoms, or any new symptoms such as vomiting, diarrhea, fever, chills, shortness of breath, chest pain, numbness, weakness, or fainting , please return immediately to the emergency department for reevaluation. Please follow up with your primary care provider as soon as possible for reassessment and reevaluation. As always, it was a pleasure participating in your medical care today. Referrals: Jessica Ellis NP [Primary Care Provider] - Medical Decision Making 75-year-old female with a past medical history of an incidental pulmonary nodule, previous vertigo, migraine headaches, who presents today for mild dizziness, vomiting diarrhea. Patient states that yesterday morning she woke up with nausea vomiting diarrhea and mild chills. The diarrhea resolved on its own, however she has had persistent nausea, mild vomiting, and dizziness. She describes the dizziness as a room spinning sensation. She denies any headache. She denies any syncope. Dizziness is made worse when she moves her head quickly. She had an episode like this about 8 months ago, which eventually resolved on its own. She did take meclizine prior to arrival with no improvement. She denies any chest tightness or chest heaviness. She denies any shortness of breath or cough. She has been vaccinated against Covid. She denies any hematemesis or recent significant alcohol use. No other complaint this time. No other modifying factors. Physical exam demonstrates unidirectional horizontal left-sided fatigable nystagmus, in addition to a positive left-sided head impulse test. The remainder of her neurologic assessment is normal. Mucous membranes are dry. Differential is highest for peripheral vertigo and mild dehydration, but also includes less likely stroke, cardiac etiology or pancreatic abnormality. We will get CT scan of the abdomen and head, rehydrate, give meclizine and Zofran, monitor closely and reassess. 9:[address] scan of the head, as well as the abdomen pelvis was negative for acute process aside for evidence of mild enteritis. Patient on reassessment is feeling much better. Dizziness has improved/resolved. She feels well, she would like to go home. Symptoms at this time I suspect are secondary to mild enteritis likely from viral or food illness. Her Covid test was negative. Electrolytes and labs are otherwise stable and unremarkable. Lipase is normal. I suspect the enteritis cause mild dehydration which then subsequently provoked her vertigo. With her symptoms resolved, her work-up stable and otherwise benign, I do feel she is appropriate for discharge. Discussed red flags which to return. Will give Zofran to go, as well as recommend continuation of her home meclizine. I have extensively reviewed the treatment plan and discharge instructions with the patient. I have addressed all patient concerns at this time. The patient was made aware of what symptoms to monitor for that would warrant a return to the emergency department. Discussed the plan with the patient, they demonstrate verbal understanding and agreement with our assessment and plan at this time. The documentation in this chart was dictated using Joonto dictation software. Please excuse any dictation errors. FINDINGS: Ventricles and Extra axial spaces: Normal in size and morphology for the patient's age. Hemorrhage: None. Cerebral parenchyma: Normal. Midline shift: None. Brainstem/Cerebellum: Normal. Calvarium: Normal. Visualized Paranasal sinuses/Mastoids: Clear. Soft Tissues: Unremarkable. IMPRESSION: 1. No acute intracranial process. 2. Results of this exam have been verbally communicated with provider. HPI General Date/Time Provider Initiated Documentation: 02/13/21 07:53. HPI Narrative: 75-year-old female with a past medical history of an incidental pulmonary nodule, previous vertigo, migraine headaches, who presents today for mild dizziness, vomiting diarrhea. Patient states that yesterday morning she woke up with nausea vomiting diarrhea and mild chills. The diarrhea resolved on its own, however she has had persistent nausea, mild vomiting, and dizziness. She describes the dizziness as a room spinning sensation. She denies any headache. She denies any syncope. Dizziness is made worse when she moves her head quickly. She had an episode like this about 8 months ago, which eventually resolved on its own. She did take meclizine prior to arrival with no improvement. She denies any chest tightness or chest heaviness. She denies any shortness of breath or cough. She has been vaccinated against Covid. She denies any hematemesis or recent significant alcohol use. No other complaint this time. No other modifying factors. Related Data Home Medications Medication Instructions Recorded Confirmed Glasgow Blauvelt 1 tab PO TID 04/14/13 02/13/21 calcium carbonate [Calcium 500] 500 mg PO DAILY 04/14/13 02/13/21 cholecalciferol (vitamin D3) 2,000 unit PO DAILY 04/14/13 02/13/21 [Vitamin D3] cod liver oil 1 ea PO BID 04/14/13 02/13/21 multivitamin [Daily Vitamin] 1 ea PO DAILY 04/14/13 02/13/21 magnesium citrate 150 mg PO BID 07/11/16 02/13/21 prochlorperazine 25 mg rectal 25 mg VA TID PRN #10 tab-cap 11/18/18 02/13/21 suppository ondansetron 4 mg PO Q6H PRN #14 tab 04/14/19 02/13/21 acetaminophen 1,000 mg PO Q6H PRN 12/13/19 02/13/21 meclizine 25 mg PO TID PRN #30 tab 05/08/20 02/13/21 ocular formula PO 05/11/20 10/18/20 sumatriptan succinate 50 mg tablet 50 mg PO ONCE PRN #30 tab-cap MDD 07/26/20 02/13/21 200 mg Previous Rx's Medication Instructions Recorded prochlorperazine 25 mg rectal 25 mg VA TID PRN #10 tab-cap 11/18/18 suppository ondansetron 4 mg PO Q6H PRN #14 tab 04/14/19 meclizine 25 mg PO TID PRN #30 tab 05/08/20 sumatriptan succinate 50 mg tablet 50 mg PO ONCE PRN #30 tab-cap MDD 07/26/20 200 mg Allergies Allergy/AdvReac Type Severity Reaction Status Date / Time cefuroxime axetil Allergy Intermediate Skin Rash Verified 02/13/21 08:02 [From Ceftin] aspirin AdvReac Intermediate GI upset Verified 02/13/21 08:02 General Stated Complaint: Nausea/Vomit/Diar JULIANNE: 3 Review of Systems All systems reviewed & are unremarkable except as noted in HPI and below PFSH All Active Problems (Updated 02/13/21 @ 09:37 by Kyler Baugh DO) Enteritis (Acute) Vomiting (Acute) Dehydration (Acute) Vertigo (Acute) Night sweats (Acute) Lymphocytopenia (Acute ~2011) Hepatic steatosis (Acute) Vertigo (Acute) Incidental pulmonary nodule (Acute) CT shows less prominence, 01/2021 .. FU in 1 year. Tubular adenoma (Acute ~12/2019) Low back pain (Acute) Iliotibial band syndrome of left side (Acute) Distal insertion injection: 07/19/2019 Other and unspecified disc disorder of unspecified region (Chronic 04/01/11) [facility] every 2 months Lumbar spine pain H/O injections Female genital prolapse (Chronic 04/17/11) Hyperlipidemia (Chronic 07/21/17) 08/2018 labs: 10-year ASCVD risk = ~10.9% --> NL HS-CRP in 2018, no statin; 2020: stop checking lipid panel due to age Migraine with aura and without status migrainosus, not intractable (Chronic 04/01/11) OA (osteoarthritis) (Chronic) Gastroesophageal reflux disease (Chronic 04/01/11) Microscopic hematuria (Chronic 07/31/17) 07/24/17 cystostopy: 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 Extraction of cataract (07/16/16) B/L (L eye initially aborted due to increased pressure then later completed successfully). Dr Villavicencio. Hx of colonoscopy Hx of esophagogastroduodenoscopy removal lens material w/ lens implant, left (08/05/16) Status post rotator cuff surgery (~2015) Right Family History Brother Diabetes adult onset. Grandmother Diabetes Social History Smoking/Tobacco Use Status: Never Smoking risk assessment performed?: Yes Alcohol Intake: current Alcohol Intake frequency: a few times a week Alcohol type: wine Drug use: Never Substance use type: does not use Adopted: No Caregiver/Support person: No Foster care: No Number of Children: 3 Communication Needs: None Current gender identity: female What type of physical activity do you participate in: walking Duration: 60-90 minutes/day Frequency: daily Seatbelt use: always Helmet use: Yes Drive intox or ride w/intox charter bus driver: No Water heater temp set <120 deg: Yes Working smoke detector in home: Yes Fire extinguisher in home: Yes Carbon monox detector in home: Yes Firearms in home: No Do you feel safe at home: Yes Do you feel safe in your relationship?: Yes Female Reproductive History Menstrual Menopause type: natural Exam Narrative Exam Narrative: 1.Const: Well-nourished, Well-developed, appearing stated age 2.Eyes: PERRL, no conjunctival injection, and symmetrical lids. 3.ENT: Atraumatic external nose and ears. dry MM. Neck: Symmetric, trachea midline, No thyromegaly. 4.CVS: +S1/S2, No murmurs or gallops. Peripheral pulses 2+ and equal in all extremities. Brisk capillary refill in all extremities. 5.RESP: Unlabored respiratory effort. Clear to auscultation bilaterally. No wheezes rales or rhonchi 6.GI: Soft, Nontender/Nondistended, No hepatosplenomegaly. No guarding or rebound. 7.MSK: Normocephalic/Atraumatic, Extremities w/o deformity or ttp No cyanosis or clubbing, Normal movement of all extremities 8.Skin: Warm, Dry. No rashes or lesions. 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 Sensation grossly intact, no focal neurologic deficits. All 6 cardinal planes of vision are fully intact. No evidence of rotatory or vertical nystagmus. The patient demonstrated a normal [id number], good dexterity. There was no evidence of dysdiadochokinesia. Patient was able to ambulate without difficulty. There was no wide-based gait. Romberg testing was normal. Deir-my-bsmy testing was normal. Sensation was intact bilaterally as well as muscle strength bilaterally for all extremities. Patient was able to verbalize butter cup with no slurring, or miss pronunciation. Cerebellar function testing is normal. The patient demonstrates a hints exam with no findings concerning for a central event. No vertical nystagmus. However the patient does have unidirectional left-sided fatigable horizontal nystagmus. The head impulse test is negative for any significant central abnormality and does show positivity toward left movement. This notably worsens her symptoms.. Normal test of skew. No suggestion of a central cerebellar event. 10.Psych: (AAO) x3. Appropriate mood and affect Course Vital Signs Vital signs: Vital Signs Temperature 36.6 C 02/13/21 07:54 Pulse 60 02/13/21 07:54 Respiratory Rate 15 02/13/21 07:54 Blood Pressure 132/52 L 02/13/21 07:54 Pulse Oximetry 100 02/13/21 07:54 Temperature 36.6 C 02/13/21 07:54 Temperature Source Oral 02/13/21 07:54 Pulse 60 02/13/21 07:54 Respiratory Rate 15 02/13/21 07:54 Respiratory Effort Non-Labored 02/13/21 07:58 Blood Pressure 132/52 L 02/13/21 07:54 Blood Pressure Position Supine 02/13/21 07:54 Pulse Oximetry 100 02/13/21 07:54 Oxygen Delivery Method Room Air 02/13/21 07:54 Oxygen Flow Rate 0 02/13/21 07:54 Pain Level 0 02/13/21 07:54 PAWSS Have you Been Recently Intoxicated or Drunk Within the Last 30 days?: No Have you Ever Experienced Previous Episodes of Alcohol Withdrawal?: No Have you ever Experienced Withdrawal Seizures?: No Have you ever Experienced Delirium Tremens(DT)s?: No Have you ever undergone Alcohol Rehabilitation Treatment (i.e, inpt ot outpatient treatment programs)?: No Have you ever Experienced Blackouts?: No Have you ever Combined Alcohol with other Downers within the last 90 days?: No Have you ever Combined Alcohol with any other Substance of Abuse during the last 90 days?: No Positive Blood Alcohol level on Presentation? [PCS.BAL]: No Evidence of Increased Autonomic Activity (i.e. HR>120, tremor, sweating, agitation, nausea)?: No Result: 0
[2021-02-13] MEDS: Normal Saline 1,000 ML 1000 ML IV (08:11)
[2021-02-13] MEDS: Ondansetron 4 MG/2 ML VIAL IVP (08:16)
[2021-02-13] MEDS: Meclizine 25 MG TAB PO (08:16)
[2021-02-13 08:41] LABS: Abs Immature Grans 0.02 10^3/uL (0.0-0.06); Absolute Basophil Count 0.01 10^3/uL (0.0-0.2); Absolute Eosinophil Count 0.03 10^3/uL (0.0-0.7); Absolute Lymphocyte Count 0.54 10^3/uL (1.2-3.4); Absolute Monocyte Count 0.52 10^3/uL (0.1-0.8); Absolute Neutrophil Count 4.45 10^3/uL (1.2-6.7); Basophils % 0.2; Eosinophils % 0.5; HCT 37.1 % (36.0-46.0); HGB 12.4 g/dL (11.2-15.7); Immature Grans % 0.4; Lymphocytes % 9.7; MCH 32.6 pg (27.0-33.0); MCHC 33.4 % (32.0-36.0); MCV 97.6 fL (80-95); MPV 9.1 fL (8.0-11.0); Monocytes % 9.3; Neutrophils % 79.9; Nucleated RBC 0 %; Platelet Count 215 10^3/uL (130-400); RDW 13.4 % (11.7-14.6); WBC 5.57 10^3/uL (4.4-10.8)
[2021-02-13 08:44] LABS: Source Nasal/Nares
--- NOTE | 2021-02-13 08:52 | DI.CT_ITS ---
Exam(s) CT HEAD WO EXAM: CT HEAD WO CLINICAL HISTORY: dizzy, vomiting. TECHNIQUE: Imaging Protocol: Axial computed tomography images with coronal and sagittal reformatted images were created and reviewed COMPARISON: CT CT HEAD WO from 05/08/2020 FINDINGS: Ventricles and Extra axial spaces: Normal in size and morphology for the patient's age. Hemorrhage: None. Cerebral parenchyma: Normal. Midline shift: None. Brainstem/Cerebellum: Normal. Calvarium: Normal. Visualized Paranasal sinuses/Mastoids: Clear. Soft Tissues: Unremarkable. IMPRESSION: 1. No acute intracranial process. 2. Results of this exam have been verbally communicated with provider. RADIATION DOSE DELIVERED: 638.41mGy.cm Total DLP DATA REPOSITORY: All CT scans at this facility are submitted to the National Radiology Data Registry (NRDR) Dose Index Registry (DIR) with the [employer] (A[employer]). RADIATION OPTIMIZATION: All CT scans at this facility use at least one of these dose optimization te chniques: automated exposure control; mA and/or kV adjustment per patient size (includes targeted exa ms where dose is matched to clinical indication); or iterative reconstruction.
[2021-02-13 09:00] LABS: ALT 28 U/L (14-59); AST 21 U/L (15-37); Albumin 3.7 g/dL (3.4-5.0); Alkaline Phosphatase 77 U/L (46-116); Anion Gap 8.8 mmol/L (3-11); BUN 13 mg/dL (7-18); CO2 27.2 mmol/L (21.0-32.0); CREATININE 0.9 mg/dL (0.55-1.02); Chloride 103 mmol/L (98-107); Glucose 109 mg/dL (74-106); Lipase 44 U/L (73-393); Potassium 3.7 mmol/L (3.5-5.1); Sodium 139 mmol/L (136-145); Total Protein 7.5 g/dL (6.4-8.2); Troponin I < 50 ng/L (<or=60)
[2021-02-13 09:25] LABS: COVID-19 PCR Negative (Negative)
[2021-02-13] MEDS: Ondansetron O.D.T. 4 MG TABEF, 3 TABS/BTL PO (09:45)
== END 2021-02-13 09:55 | disposition home or self-care (01) ==
PROVIDERS: Emergency Provider Student in an Organized Health Care Education/Training Program; PCP Nurse Practitioner Family
DX: K52.9 Noninfective gastroenteritis and colitis, unspecified (principal); R11.2 Nausea with vomiting, unspecified; E86.0 Dehydration; R42 Dizziness and giddiness
CPT/HCPCS: 36415; 80053; 83690; 87635; 93005; 96361; 96374; 99284; 70450; 74176; 84484; 85025; 93010; J2405

== ENCOUNTER 2021-10-17 04:16 | Outpatient (CLI) | payer MEDICARE, OTHER, SELFPAY ==
[2021-10-17 11:01] LABS: Abs Immature Grans 0.01 10^3/uL (0.0-0.06); Absolute Basophil Count 0.02 10^3/uL (0.0-0.2); Absolute Eosinophil Count 0.11 10^3/uL (0.0-0.7); Absolute Lymphocyte Count 0.75 10^3/uL (1.2-3.4); Absolute Monocyte Count 0.36 10^3/uL (0.1-0.8); Absolute Neutrophil Count 2.08 10^3/uL (1.2-6.7); Basophils % 0.6; Eosinophils % 3.3; HCT 33.4 % (36.0-46.0); HGB 11.2 g/dL (11.2-15.7); Immature Grans % 0.3; Lymphocytes % 22.5; MCH 32.2 pg (27.0-33.0); MCHC 33.5 % (32.0-36.0); MCV 96 fL (80-95); MPV 9.1 fL (8.0-11.0); Monocytes % 10.8; Neutrophils % 62.5; Platelet Count 160 10^3/uL (130-400); RBC 3.48 10^6/uL (3.93-5.22); RDW 13.1 % (11.7-14.6); RDW-SD 46.3 fL; WBC 3.33 10^3/uL (4.4-10.8)
[2021-10-17 12:12] LABS: ALT 22 U/L (14-59); AST 15 U/L (15-37); Albumin 3.6 g/dL (3.4-5.0); Alkaline Phosphatase 71 U/L (46-116); Anion Gap 5.3 mmol/L (3-11); BUN 13 mg/dL (7-18); Bilirubin, Total 0.4 mg/dL (0.2-1.0); CO2 28.7 mmol/L (21.0-32.0); CREATININE 0.8 mg/dL (0.55-1.02); Calcium 8.6 mg/dL (8.5-10.1); Chloride 101 mmol/L (98-107); Estimated GFR 75.84 (mL/min/1.73m2); Glucose 89 mg/dL (74-106); Potassium 4.1 mmol/L (3.5-5.1); Sodium 135 mmol/L (136-145); Total Protein 7.2 g/dL (6.4-8.2)
== END 2021-10-17 04:17 | disposition home or self-care (01) ==
LOC: LBO 04:16
PROVIDERS: PCP Nurse Practitioner Family; Visit Provider Nurse Practitioner Family
DX: D72.810 Lymphocytopenia (principal); R73.01 Impaired fasting glucose; K76.0 Fatty (change of) liver, not elsewhere classified
CPT/HCPCS: 36415; 80053; 85025

== ENCOUNTER 2022-10-22 02:38 | Outpatient (CLI) | payer MEDICARE, OTHER, SELFPAY ==
[2022-10-22 10:19] LABS: Absolute Basophil Count 0.02 10^3/uL (0.0-0.2); Absolute Lymphocyte Count 0.67 10^3/uL (1.2-3.4); Absolute Monocyte Count 0.35 10^3/uL (0.1-0.8); Absolute Neutrophil Count 2.09 10^3/uL (1.2-6.7); Basophils % 0.6; Eosinophils % 3.1; HCT 32.9 % (36.0-46.0); HGB 11.2 g/dL (11.2-15.7); Lymphocytes % 20.7; MCH 32.5 pg (27.0-33.0); MCV 95 fL (80-95); MPV 8.7 fL (8.0-11.0); Monocytes % 10.8; Neutrophils % 64.8; Platelet Count 165 10^3/uL (130-400); RBC 3.45 10^6/uL (3.93-5.22); RDW 13.1 % (11.7-14.6); RDW-SD 45.7 fL; WBC 3.23 10^3/uL (4.4-10.8)
[2022-10-22 10:51] LABS: ALT 22 U/L (14-59); AST 16 U/L (15-37); Albumin 3.5 g/dL (3.4-5.0); Alkaline Phosphatase 77 U/L (46-116); Anion Gap 7.4 mmol/L (3-11); BUN 9 mg/dL (7-18); Bilirubin, Total 0.6 mg/dL (0.2-1.0); CO2 27.6 mmol/L (21.0-32.0); CREATININE 0.7 mg/dL (0.55-1.02); Calcium 8.6 mg/dL (8.5-10.1); Chloride 98 mmol/L (98-107); Estimated GFR 88.47 (mL/min/1.73m2); Glucose 96 mg/dL (74-106); Potassium 4.3 mmol/L (3.5-5.1); Sodium 133 mmol/L (136-145)
== END 2022-10-22 02:39 | disposition home or self-care (01) ==
LOC: LBO 02:38
PROVIDERS: Absent Provider Nurse Practitioner Family; PCP Nurse Practitioner Family; Visit Provider Nurse Practitioner Family
DX: E87.1 Hypo-osmolality and hyponatremia; D72.810 Lymphocytopenia; K76.0 Fatty (change of) liver, not elsewhere classified
CPT/HCPCS: 36415; 80053; 85025

== ENCOUNTER → 2022-11-11 02:52 | Outpatient (CLI) | payer MEDICARE, OTHER, SELFPAY ==
--- NOTE | 2022-11-11 06:45 | DI.MAMMO_ITS ---
Exam(s) MAMMO SCREENING EXAM: MAMMO SCREENING CLINICAL HISTORY: SCREENING, Z12.39. TECHNIQUE: Bilateral full field digital CC and MLO mammographic images were obtained with 3D tomosyn thesis and utilizing computer aided detection (CAD). COMPARISON: Prior mammograms were reviewed. FINDINGS: Fibroglandular tissue pattern is again noted be dense, this somewhat decreasing the sensitivity of th e mammogram for finding hidden underlying lesions. There are no obvious spiculated masses nor malignant-appearing microcalcification groups. Small group of microcalcifications in the left breast is unchanged from prior mammograms. There is no significant architectural distortion nor skin thickening-retraction. IMPRESSION: No radiographic evidence of malignancy. Dense bilateral fibroglandular tissue. BI-RADS Category 1 - Negative Breast Density - Category D - Extremely dense Breast density Category C or D implies that the patient has dense breast tissue. Dense breast tissue can make it harder to find cancer on a mammogram. Dense breast tissue is also associated with an incr eased risk of breast cancer. This information about the result of the mammogram report was provided to the patient to raise their awareness. Use this report when you speak with the patient about their risks for breast cancer, which includes their family history. At that time, you may recommend additional screening tests (Ultrasoun d or MRI) as these tests may add significant information. A negative radiographic report should not delay biopsy if a dominant or clinically suspicious mass is present. Up to ten percent of cancers are not identified on mammography. A negative report may reinforce clinical impression. Adenosis and dense breasts may obscure an underlying neoplasm. False positive reports average 6 to 10%. Patient will receive a letter notifying them of these results.
== END ==
PROVIDERS: PCP Nurse Practitioner Family; Visit Provider Nurse Practitioner Family
DX: Z12.31 Encounter for screening mammogram for malignant neoplasm of breast (principal)
CPT/HCPCS: 77063; 77067

== ENCOUNTER 2022-11-14 04:56 | Outpatient (CLI) | payer MEDICARE, OTHER, SELFPAY ==
[2022-11-14 11:54] LABS: Sodium 132 mmol/L (136-145)
== END 2022-11-14 04:57 | disposition home or self-care (01) ==
LOC: LBO 04:56
PROVIDERS: PCP Nurse Practitioner Family; Referring Provider Nurse Practitioner Family; Visit Provider Nurse Practitioner Family
DX: E87.1 Hypo-osmolality and hyponatremia (principal)
CPT/HCPCS: 36415; 84295

== ENCOUNTER 2023-04-07 04:05 | Outpatient (CLI) | payer MEDICARE, OTHER, SELFPAY ==
[2023-04-07 08:33] LABS: Anion Gap 8.2 mmol/L (3-11); BUN 10 mg/dL (7-18); CO2 28.8 mmol/L (21.0-32.0); CREATININE 0.8 mg/dL (0.55-1.02); Calcium 9.6 mg/dL (8.5-10.1); Chloride 99 mmol/L (98-107); Estimated GFR 75.37 (mL/min/1.73m2); Glucose 98 mg/dL (74-106); Potassium 4.2 mmol/L (3.5-5.1); Sodium 136 mmol/L (136-145)
== END 2023-04-07 04:06 | disposition home or self-care (01) ==
PROVIDERS: PCP Nurse Practitioner Family; Visit Provider Student in an Organized Health Care Education/Training Program
DX: E87.1 Hypo-osmolality and hyponatremia (principal); D72.810 Lymphocytopenia; M54.59 Other low back pain
CPT/HCPCS: 36415; 80048; 83735

== ENCOUNTER 2023-04-15 21:33 | Outpatient (REF) | payer MEDICARE, OTHER, SELFPAY ==
[2023-04-15 21:06] LABS: Source Nasal/Nares
[2023-04-15 21:51] LABS: COVID-19 PCR Negative (Negative)
== END 2023-04-15 21:34 | disposition home or self-care (01) ==
LOC: LBN 21:33
PROVIDERS: PCP Nurse Practitioner Family; Visit Provider Nurse Practitioner Family
DX: J06.9 Acute upper respiratory infection, unspecified (principal); Z11.52 Encounter for screening for COVID-19
CPT/HCPCS: 87635

== ENCOUNTER → 2023-06-20 00:49 | Outpatient (CLI) | payer MEDICARE, OTHER, SELFPAY ==
--- NOTE | 2023-06-20 06:45 | DI.MRI_ITS ---
Exam(s) MR LUMBAR SPINE WO EXAM: MR LUMBAR SPINE WO CLINICAL HISTORY: pain, severe, RLE radiculopathy,m54.50,m54.16. TECHNIQUE: Multiplanar multisequence MRI of the Lumbar spine was performed. COMPARISON: CR XR CHEST 2V PA LATERAL from 05/08/[address] ABDOMEN PELVIS WO from 02/13/2021 FINDINGS: Bones: The last intervertebral disc space is designated the L5/S1 level for the numbering purpose of this ex amination. The vertebral body heights are well maintained. Alignment: Degenerative dextroscoliosis. The marrow signal characteristics are unremarkable. Cord: The conus tip ends at the T12 level. It is of normal size and signal intensity. T12-L1: Disc bulging eccentric toward the right.. No focal disc herniation is present. No central s srinivas canal stenosis.Mild right neural foraminal narrowing. L1-2:Moderate loss of disc height, eccentric toward the right. Endplate osteophytes greater on the r ight.. Endplate osteophytes. Disc bulging eccentric toward the right no focal disc herniation is pr esent. No central spinal canal stenosis.Moderate to severe right neural foraminal narrowing. L2-3: Severe loss of disc height. Broad-based osteophytes. No focal disc herniation is present. Facet degenerative changes. Mild central spinal canal stenosis.Severe bilateral neural foraminal st enosis. L3-4: Asymmetric loss of disc height, severe on the left side where there are prominent endplate oste ophytes.No focal disc herniation is present. No central spinal canal stenosis.Severe left neural fo raminal stenosis. L4-5: Severe loss of disc height. Broad-based osteophytes. No focal disc herniation is present. No central spinal canal stenosis.Severe bilateral neural foraminal stenosis. L5-S1: Bilateral L5 pars defects. Mild L5-S1 spondylolisthesis. Was present on prior CT from 2021. Mild loss of disc height. Endplate osteophytes.No focal disc herniation is present. No central spi nal canal stenosis.Severe bilateral neural foraminal stenosis. The visualized SI joints and sacrum are unremarkable. Soft tissues: The paraspinal soft tissues are unremarkable. IMPRESSION: No evidence of disc herniation. Multilevel severe degenerative disc changes causing bilateral neural foraminal narrowing. Stable appearance of bilateral L5 pars defects, mild L5-S1 spondylolisthesis. DATA REPOSITORY:
== END ==
PROVIDERS: PCP Nurse Practitioner Family; Visit Provider Nurse Practitioner
DX: G89.29 Other chronic pain; M54.16 Radiculopathy, lumbar region
CPT/HCPCS: 72148

== ENCOUNTER 2023-08-13 17:01 | Emergency (ER) | payer MEDICARE, OTHER, SELFPAY ==
[2023-08-13 17:06] VITALS: BP 164/76; PULSE 83; RESP 16; TEMP 36.6; O2SAT 98
--- NOTE | 2023-08-13 17:18 | ED.GENADUL_ITS ---
Discharge Plan Disposition Patient Disposition: Home Condition: Stable Discharge Details Clinical Impression: Vasovagal near syncope Primary Care Provider: Jessica Ellis ED Provider: Kyler Matthew Home Meds and New Rx's Prescriptions: Continued sumatriptan succinate 50 mg tablet 50 mg PO ONCE MDD 200 mg PRN (Reason: migraine) Qty: 30 3RF Rx Instructions: A second dose can be taken if no response after 2 hours prochlorperazine [Compazine] 25 mg suppository 25 mg MS TID PRN (Reason: nausea and vomiting associated with migraines) Qty: 30 3RF ondansetron 4 mg tablet,disintegrating 4 mg PO Q6H PRN (Reason: nausea and vomiting) Qty: 30 3RF multivitamin [Daily Vitamin] 1 EACH tablet 1 ea PO DAILY cod liver oil 1 EACH capsule 1 ea PO BID calcium carbonate [Calcium 500] 500 MG tablet 500 mg PO DAILY cholecalciferol (vitamin D3) [Vitamin D3] 2,000 UNIT capsule 2,000 unit PO DAILY glasgow primrose 1 tab PO TID acetaminophen 500 mg Capsule 1,000 mg PO Q6H PRN meclizine 25 mg tablet 25 mg PO TID PRN (Reason: dizziness) Qty: 30 0RF magnesium citrate 100 MG tablet 150 mg PO BID Discharge Instructions Instructions: Vasovagal Response, Near Fainting Additional Instructions: You were seen in the emergency department for your near syncope after significant exertion mowing the lawn on a hot day today, you state you never lost full consciousness, experience no chest pain or shortness of breath or any episode it was after a hot shower, this is also suspicious for mild dehydration and vasovagal response. Labs show no significant abnormalities of clinical dehydration, no elevation of troponin or cardiac enzymes, your EKG is reassuring that this was not cardiac related near syncope. Please hydrate and return to the ED for any emergent concerns like continued dizziness, shortness of breath, chest pain, sweating with exertional chest pain. Referrals: Jessica Ellis NP [Primary Care Provider] - Discharge Data Discharge Date/Time-TO BE ENTERED AT DEPARTURE: 08/13/23 19:09 HPI General Date/Time Provider Initiated Documentation: 08/13/23 17:11 . HPI Narrative: 78 year-old female presents to ED today by POV/ambulating with her friend with a chief complaint of near syncope- did not lose consciousness- that came on while she was outside mowing the lawn with onset around noon or 1300. Quality described as exhausted, dehydrated, recently got back from trip to [place] this morning- two people in her travel alliance party were positive for covid, took an at-home test and was negative, no radiation to fever, cough, shortness of breath, overt chest pain, endorses she got dizziness with mowing the lawn. Severity is described as moderate. Palliating factors include nothing specific- symptoms passed shortly after she guided herself to the ground. Provoking factors include nothing specific. Events leading up to the incident/Associated Symptoms: Patient denies cardiac history. Patient not anticoagulated. Related Data Home Medications Medication Instructions Recorded Confirmed [place] Vevay 1 tab PO TID 04/14/13 08/13/23 calcium carbonate (Calcium 500) 500 mg PO DAILY 04/14/13 08/13/23 cholecalciferol (vitamin D3) 50 2,000 unit PO DAILY 04/14/13 08/13/23 mcg (2,000 unit) capsule (Vitamin D3) cod liver oil 1 ea PO BID 04/14/13 08/13/23 multivitamin (Daily Vitamin tablet) 1 ea PO DAILY 04/14/13 08/13/23 magnesium citrate 100 mg tablet 150 mg PO BID 07/11/16 08/13/23 acetaminophen 500 mg capsule 1,000 mg PO Q6H PRN 12/13/19 08/13/23 meclizine 25 mg tablet 25 mg PO TID PRN dizziness #30 tabs 05/08/20 08/13/23 ondansetron 4 mg disintegrating 4 mg PO Q6H PRN nausea and 10/31/22 08/13/23 tablet vomiting #30 tabs prochlorperazine 25 mg rectal 25 mg MS TID PRN nausea and 10/31/22 08/13/23 suppository (Compazine) vomiting associated with migraines #30 tab-caps sumatriptan succinate 50 mg tablet 50 mg PO ONCE PRN migraine #30 10/31/22 08/13/23 tab-caps Previous Rx's Medication Instructions Recorded meclizine 25 mg tablet 25 mg PO TID PRN dizziness #30 tabs 05/08/20 ondansetron 4 mg disintegrating 4 mg PO Q6H PRN nausea and 10/31/22 tablet vomiting #30 tabs prochlorperazine 25 mg rectal 25 mg MS TID PRN nausea and 10/31/22 suppository (Compazine) vomiting associated with migraines #30 tab-caps sumatriptan succinate 50 mg tablet 50 mg PO ONCE PRN migraine #30 10/31/22 tab-caps Allergies Allergy/AdvReac Type Severity Reaction Status Date / Time cefuroxime axetil Allergy Intermediate Skin Rash Verified 08/13/23 17:02 [From Ceftin] aspirin AdvReac Intermediate GI upset Verified 08/13/23 17:02 General Stated Complaint: [id number] JULIANNE: 3 Review of Systems All systems reviewed & are unremarkable except as noted in HPI and below Exam Narrative Exam Narrative: GENERAL APPEARANCE: Well-nourished, non-toxic, awake and alert, atraumatic, no acute distress. SKIN: Warm, pink, dry, intact, without rashes/lesions/ulcerations. HEAD: Normocephalic, atraumatic, normal hair distribution for gender/age. EYES: Pupils PERRLA, EOMs intact without nystagmus, normal conjunctiva, no exudates on lids/lashes. ENT: Nares patent, no circumoral cyanosis, no facial swelling NECK: Supple, trachea midline, painless cervical ROM. LUNGS/CHEST: Lungs CTA bilaterally, non-labored respirations, normal A/P diameter, symmetrical expansion, no chest wall deformity HEART (CV/PV): Regular rate and rhythm without murmur, no peripheral edema, no JVD. ABDOMEN: Soft, non-distended, no guarding. MSK: Normal ROM, no swelling/deformity to bilateral UEs or LEs, moving all extremities without weakness, no cyanosis, spine midline without tenderness, normal curvature. NEURO: Mental Status AAOx4 - alert to person, place, time, events No facial droop, no forehead involvement. Motor: No focal weakness - strength 5/5 in bilateral UEs and LEs, proximal and distal, symmetric. Sensory: sensation intact to light touch globally. Gait normal: patient ambulated without ataxia into ED room. PSYCH: euthymic, cooperative, pleasant, appropriate speech Course Vital Signs Vital signs: Vital Signs Temperature 36.6 C 08/13/23 17:06 Pulse 83 08/13/23 17:06 Respiratory Rate 16 08/13/23 17:06 Blood Pressure 164/76 H 08/13/23 17:06 Pulse Oximetry 98 08/13/23 17:06 Temperature 36.6 C 08/13/23 17:06 Temperature Source Oral 08/13/23 17:06 Pulse 83 08/13/23 17:06 Respiratory Rate 16 08/13/23 17:06 Blood Pressure 164/76 H 08/13/23 17:06 Blood Pressure Position Sitting 08/13/23 17:06 Pulse Oximetry 98 08/13/23 17:06 Oxygen Delivery Method Room Air 08/13/23 17:06 Oxygen Flow Rate 0 08/13/23 17:06 Pain Level 5 08/13/23 17:06 Medical Decision Making This dictation utilizes [id number] dictation software and may contain unedited grammatical errors. 78 year-old female presents to ED today by POV/ambulating with her friend with a chief complaint of near syncope- did not lose consciousness- that came on while she was outside mowing the lawn with onset around noon or 1300. Quality described as exhausted, dehydrated, recently got back from trip to [place] this morning- two people in her travel alliance party were positive for covid, took an at-home test and was negative, no radiation to fever, cough, shortness of breath, overt chest pain, endorses she got dizziness with mowing the lawn. Severity is describ ed as moderate. Palliating factors include nothing specific- symptoms passed shortly after she guided herself to the ground. Provoking factors include nothing specific. Events leading up to the incident/Associated Symptoms: Patient denies cardiac history. Patients' medical history: Gastric ulcer, migraine, vertigo. Family and social history: Eats healthy, exercises regularly. Pertinent exam findings / vital signs include benign cardiopulmonary exam, neuro intact, benign abdomen, stable vitals. Differential / pathologies of concern include vasovagal reaction, acute coronary syndrome, dehydration, heat exhaustion, COVID-19. Diagnostic studies of: -CBC, CMP, troponin I, TSH, COVID/flu/RSV PCR, EKG. -CBC benign -CMP without signs of clinical dehydration -Trop I negative with reliable onset -TSH WNL -Covid/flu/RSV neg -EKG shows normal sinus rhythm at 77 bpm with narrow complex QRS, normal axis, normal intervals, no ST segment abnormalities, some T wave flattening in aVL which is similar to prior studies, normal QT QTc, good R wave progression Interventions of: -IVF LR 1L ED Course/Assessment/Plan: 78-year-old female had episode of near syncope directly related to mowing her lawn on a hot day, she recently traveled from [place] and 2 members of her alliance party were COVID-positive, she is COVID-negative, her cardiac workup is negative with a reliable greater than 4-hour troponin and no concerns on EKG, the patient states she did not syncopized or have chest pain, she was able to gradually lowered herself to the ground and her symptoms abated quite quickly after this. She did endorse some mild nausea and feels dehydrated. Her labs show no clinical dehydration or CAITLIN, she was stable throughout the visit and was comfortable with following up with outpatient referral for baseline cardiac studies and strict return criteria for any further episodes of dizziness and near syncope. Findings not consistent with acute coronary syndrome, severe dehydration, likely heat exhaustion. Disposition of Vasovagal Near Syncope. Patient verbalized understanding of the plan and return to ED criteria and engaged in shared decision making. Medical Records Medical records reviewed: Yes I reviewed the patient's medical records. Lab Data Lab results reviewed: Yes I reviewed the patient's lab results. Labs: Laboratory Tests Range/Units 08/13/23 08/13/23 17:28 17:57 WBC (4.4-10.8) 10^3/uL 6.55 RBC (3.93-5.22) 10^6/uL 3.68 L Hgb (11.2-15.7) g/dL 11.9 Hct (36.0-46.0) % 35.2 L MCV (80-95) fL 96 H MCH (27.0-33.0) pg 32.3 MCHC (32.0-36.0) % 33.8 RDW (11.7-14.6) % 13.3 Plt Count (130-400) 10^3/uL 178 MPV (8.0-11.0) fL 9.1 Immature Gran % % 0.3 Neutrophils % % 89.6 Lymphocytes % % 6.4 Monocytes % % 3.4 Eosinophils % % 0.0 Basophils % % 0.3 Nucleated RBC % (0.0-0.3) % 0.0 Absolute Neutrophils (1.2-6.7) 10^3/uL 5.87 Absolute Lymphocytes (1.2-3.4) 10^3/uL 0.42 L Absolute Monocytes (0.1-0.8) 10^3/uL 0.22 Absolute Eosinophils (0.0-0.7) 10^3/uL 0.00 Absolute Basophils (0.0-0.2) 10^3/uL 0.02 Sodium (136-145) mmol/L 133 L Potassium (3.5-5.1) mmol/L 4.2 Chloride (98-107) mmol/L 98 Carbon Dioxide (21.0-32.0) mmol/L 26.5 Anion Gap (3-11) mmol/L 8.5 BUN (7-18) mg/dL 13 Creatinine (0.55-1.02) mg/dL 0.8 Est GFR (CKD-EPI 2020) (mL/min/1.73m2) 74.90 Glucose (74-106) mg/dL 122 H Calcium (8.5-10.1) mg/dL 8.9 Magnesium (1.8-2.4) mg/dL 1.9 Total Bilirubin (0.2-1.0) mg/dL 0.96 AST (15-37) U/L 19 ALT (14-59) U/L 27 Alkaline Phosphatase (46-116) U/L 85 Troponin I (< or =60) ng/L < 50 Total Protein (6.4-8.2) g/dL 7.3 Albumin (3.4-5.0) g/dL 3.9 TSH (0.36-3.74) uIU/mL 0.80 COVID-19 Source NASOPHARYNX SARS-CoV-2 (PCR) (Negative) Negative Influenza Type A (PCR) (Negative) Negative Influenza Type B (PCR) (Negative) Negative RSV (PCR) (Negative) Negative Quality:SDOH Health Related Social Needs: No Data to Display PFSH All Active Problems (Updated 08/13/23 @ 18:52 by IRWIN Webb) Vasovagal near syncope (Acute) Hyponatremia (Acute) Chronic low back pain (Chronic) History of colon polyps (Acute) History of gastric ulcer (Acute) Night sweats (Chronic) Menopause Lymphocytopenia (Chronic ~2011) 02/01/2021 [facility] [place] Hematology consult: incidental Other and unspecified disc disorder of unspecified region (Chronic 04/01/11) [facility], chiropractic every 2 months Lumbar spine pain H/O injections Female genital prolapse (Chronic 04/17/11) Migraine with aura and without status migrainosus, not intractable (Chronic 04/01/11) OA (osteoarthritis) (Chronic) Osteopenia (Chronic 04/14/13) 2010 DXA--+osteopenia osteoporosis (L forearm) Medical History (Updated 08/13/23 @ 18:52 by IRWIN Webb) Actinic keratosis Gastric ulcer SARS-CoV-2 positive (~07/2021) Hepatic steatosis 02/13/[address] showing normal liver density Incidental pulmonary nodule 01/2021 3 month f/u CT: decreased prominence, consider 1 yr f/u; 10/2021: pt declines f/u Vertigo Tubular adenoma (~12/2019) Iliotibial band syndrome of left side Distal insertion injection: 07/19/2019 Microscopic hematuria (07/31/17) 07/24/17 cystostopy: 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 Villavicencio. Hx of esophagogastroduodenoscopy Hx of colonoscopy Status post rotator cuff surgery (~2015) Right removal lens material w/ lens implant, left (08/05/16) Bunionectomy (03/24/15) Dr Montesinos-right foot (neuroma). Family History Brother Diabetes adult onset. Grandmother Diabetes Social History (Updated 10/31/22 @ 08:37 by Dottie Benavides RN) Smoking/Tobacco Use Status: Never Smoking risk assessment performed?: Yes Alcohol Intake: current Alcohol Intake frequency: a few times a week Alcohol type: wine Drug use: Never Substance use type: does not use Adopted: No Caregiver/Support person: No Foster care: No Housing: house Number of Children: 3 number of grandchildren: 5 Communication Needs: None Education Level: master's degree Do you need help understanding health information?: Never current occupation: Retired Pets and animals: No Sexually active: No Do you think of yourself as: straight/heterosexual Current gender identity: female What is your relationship status?: How often do you talk on the phone with friends or family?: once per week How often do you get together with friends or relatives?: once per week Do you belong to any clubs or organized social groups?: yes Panel score (0-1 are the most socially isolated patients): 1 What type of physical activity do you participate in: walking and other Details: Man Chi Duration: 60-90 minutes/day Frequency: daily Abimbola/Mu-Ism: Amish Special abimbola needs: No Seatbelt use: always Helmet use: No (N/A) Drive intox or ride w/intox shuttle truck driver: No Water heater temp set <120 deg: Yes Working smoke detector in home: Yes Fire extinguisher in home: Yes Carbon monox detector in home: Yes Firearms in home: No Do you feel safe at home: Yes Do you feel safe in your relationship?: Yes Female Reproductive History Menstrual Menopause type: natural
[2023-08-13 17:39] VITALS: RESP 16
--- NOTE | 2023-08-13 17:45 | RT.EKG_ITS ---
APPROVED REPORT Exam: Resting ECG Reason for Exam: near syncope Patient Location: E HR:77 bpm ECG Measurements Heart Rate 77 AXIS DE 172 P 81 QRSd 86 QRS 50 QT 394 T 56 QTc 446 Conclusion Sinus rhythm...normal P axis, V-rate 60- 99 Consider anteroseptal infarct...Q >30mS, dimin R, V1-V2 Narrow complex normal sinus rhythm at a rate of 77. Normal axis. Intervals within normal limits. N o ST segment abnormalities. T wave flattening in aVL. Appears similar to prior dated 2 years ago. No acute injury pattern.
[2023-08-13 17:54] LABS: Abs Immature Grans 0.02 10^3/uL (0.0-0.06); Absolute Basophil Count 0.02 10^3/uL (0.0-0.2); Absolute Lymphocyte Count 0.42 10^3/uL (1.2-3.4); Absolute Monocyte Count 0.22 10^3/uL (0.1-0.8); Absolute Neutrophil Count 5.87 10^3/uL (1.2-6.7); Basophils % 0.3 %; HCT 35.2 % (36.0-46.0); HGB 11.9 g/dL (11.2-15.7); Immature Grans % 0.3 %; Lymphocytes % 6.4 %; MCH 32.3 pg (27.0-33.0); MCHC 33.8 % (32.0-36.0); MCV 96 fL (80-95); MPV 9.1 fL (8.0-11.0); Monocytes % 3.4 %; Neutrophils % 89.6 %; Platelet Count 178 10^3/uL (130-400); RBC 3.68 10^6/uL (3.93-5.22); RDW 13.3 % (11.7-14.6); RDW-SD 47.4 fL; WBC 6.55 10^3/uL (4.4-10.8)
[2023-08-13] MEDS: Lactated Ringers 1,000 ML 1000 ML IV (18:01)
[2023-08-13 18:18] LABS: ALT 27 U/L (14-59); AST 19 U/L (15-37); Albumin 3.9 g/dL (3.4-5.0); Alkaline Phosphatase 85 U/L (46-116); Anion Gap 8.5 mmol/L (3-11); BUN 13 mg/dL (7-18); Bilirubin, Total 0.96 mg/dL (0.2-1.0); CO2 26.5 mmol/L (21.0-32.0); CREATININE 0.8 mg/dL (0.55-1.02); Calcium 8.9 mg/dL (8.5-10.1); Chloride 98 mmol/L (98-107); Glucose 122 mg/dL (74-106); Magnesium 1.9 mg/dL (1.8-2.4); Potassium 4.2 mmol/L (3.5-5.1); Sodium 133 mmol/L (136-145); Total Protein 7.3 g/dL (6.4-8.2); Troponin I < 50 ng/L (< or =60)
[2023-08-13 18:45] VITALS: BP 164/76; PULSE 83; RESP 16; TEMP 36.6; O2SAT 98
[2023-08-13 19:08] VITALS: BP 143/64; PULSE 74; RESP 16; O2SAT 99
[2023-08-13 19:26] LABS: COVID-19 PCR Negative (Negative); Influenza A PCR Negative (Negative); Influenza B PCR Negative (Negative); RSV PCR Negative (Negative)
[2023-08-13 19:30] LABS: Source NASOPHARYNX
== END 2023-08-13 19:09 | disposition home or self-care (01) ==
PROVIDERS: Emergency Provider Physician Assistant; PCP Nurse Practitioner Family
DX: R55 Syncope and collapse (principal); R11.2 Nausea with vomiting, unspecified; E78.5 Hyperlipidemia, unspecified; K21.9 Gastro-esophageal reflux disease without esophagitis; Z79.899 Other long term (current) drug therapy
CPT/HCPCS: 80053; 87637; 93005; 96360; 99284; 83735; 84443; 84484; 85025; 93010

== ENCOUNTER 2023-10-28 02:37 | Outpatient (CLI) | payer MEDICARE, OTHER, SELFPAY ==
[2023-10-28 08:43] LABS: Abs Immature Grans 0.01 10^3/uL (0.0-0.06); Absolute Basophil Count 0.02 10^3/uL (0.0-0.2); Absolute Eosinophil Count 0.14 10^3/uL (0.0-0.7); Absolute Lymphocyte Count 0.56 10^3/uL (1.2-3.4); Absolute Monocyte Count 0.35 10^3/uL (0.1-0.8); Absolute Neutrophil Count 2.41 10^3/uL (1.2-6.7); Basophils % 0.6 %; HCT 35.2 % (36.0-46.0); HGB 11.6 g/dL (11.2-15.7); Immature Grans % 0.3 %; MCH 32.7 pg (27.0-33.0); MCV 99 fL (80-95); MPV 8.7 fL (8.0-11.0); Neutrophils % 69.1 %; Platelet Count 181 10^3/uL (130-400); RBC 3.55 10^6/uL (3.93-5.22); RDW 13.7 % (11.7-14.6); RDW-SD 50.5 fL; WBC 3.49 10^3/uL (4.4-10.8)
[2023-10-28 09:46] LABS: Hemoglobin A1C 5.5 % (<5.7)
[2023-10-28 10:04] LABS: ALT 22 U/L (14-59); AST 21 U/L (15-37); Albumin 3.4 g/dL (3.4-5.0); Alkaline Phosphatase 105 U/L (46-116); Anion Gap 5.9 mmol/L (3-11); BUN 13 mg/dL (7-18); Bilirubin, Total 0.91 mg/dL (0.2-1.0); CO2 29.1 mmol/L (21.0-32.0); CREATININE 0.7 mg/dL (0.55-1.02); Calcium 8.7 mg/dL (8.5-10.1); Chloride 103 mmol/L (98-107); Estimated GFR 87.92 (mL/min/1.73m2); Glucose 92 mg/dL (74-106); Potassium 4.3 mmol/L (3.5-5.1); Sodium 138 mmol/L (136-145); Total Protein 7.1 g/dL (6.4-8.2); Vitamin D 25 Total 59.1 ng/mL (30-100)
== END 2023-10-28 02:38 | disposition home or self-care (01) ==
LOC: LBO 02:37
PROVIDERS: PCP Nurse Practitioner Family; Visit Provider Nurse Practitioner Adult Health
DX: E87.1 Hypo-osmolality and hyponatremia (principal); M85.80 Other specified disorders of bone density and structure, unspecified site; D72.810 Lymphocytopenia; E78.1 Pure hyperglyceridemia
CPT/HCPCS: 36415; 80053; 82306; 83036; 85025

== ENCOUNTER 2023-11-18 02:03 | Outpatient (CLI) | payer MEDICARE, OTHER, SELFPAY ==
--- NOTE | 2023-11-18 06:30 | DI.MAMMO_ITS ---
Exam(s) MAMMO SCREENING EXAM: MAMMO SCREENING CLINICAL HISTORY: screening,z12.39. TECHNIQUE: Bilateral full field digital CC and MLO mammographic images were obtained with 3D tomosyn thesis and utilizing computer aided detection (CAD). COMPARISON: Prior mammograms were reviewed. FINDINGS: The fibroglandular tissue pattern is again noted be dense, this somewhat decreasing the sensitivity o f the mammogram for finding hidden underlying lesions. There are no obvious new spiculated masses nor malignant appearing microcalcification groups. There is no significant architectural distortion nor skin thickening-retraction. IMPRESSION: No radiographic evidence of malignancy. BI-RADS Category 1 - Negative Breast Density - Category C - Heterogeneously dense Breast density Category C or D implies that the patient has dense breast tissue. Dense breast tissue can make it harder to find cancer on a mammogram. Dense breast tissue is also associated with an incr eased risk of breast cancer. This information about the result of the mammogram report was provided to the patient to raise their awareness. Use this report when you speak with the patient about their risks for breast cancer, which includes their family history. At that time, you may recommend additional screening tests (Ultrasoun d or MRI) as these tests may add significant information. A negative radiographic report should not delay biopsy if a dominant or clinically suspicious mass is present. Up to ten percent of cancers are not identified on mammography. A negative report may reinforce clinical impression. Adenosis and dense breasts may obscure an underlying neoplasm. False positive reports average 6 to 10%. Patient will receive a letter notifying them of these results.
== END 2023-11-18 02:23 ==
LOC: DI 02:03
PROVIDERS: PCP Nurse Practitioner Adult Health; Visit Provider Nurse Practitioner Adult Health
DX: Z12.31 Encounter for screening mammogram for malignant neoplasm of breast (principal)
CPT/HCPCS: 77063; 77067

== ENCOUNTER 2024-08-28 13:03 | Emergency (ER) | payer MEDICARE, OTHER, SELFPAY ==
[2024-08-28] VITALS (17 sets, daily range): BP systolic 92–140; BP diastolic 49–83; PULSE 59–78; RESP 8–17; TEMP 36.3; O2SAT 95–100
[2024-08-28] MEDS: Lactated Ringers 1,000 ML 1000 ML IV (13:53)
[2024-08-28 13:59] LABS: Abs Immature Grans 0.00 10^3/uL (0.0-0.06); HCT 35.4 % (36.0-46.0); HGB 12.0 g/dL (11.2-15.7); Immature Grans % 0.0 %; MCH 31.9 pg (27.0-33.0); MCHC 33.9 % (32.0-36.0); MCV 94 fL (80-95); MPV 8.8 fL (8.0-11.0); Platelet Count 170 10^3/uL (130-400); RBC 3.76 10^6/uL (3.93-5.22); RDW 13.2 % (11.7-14.6); RDW-SD 45.5 fL; WBC 5.00 10^3/uL (4.4-10.8)
[2024-08-28] MEDS: Prochlorperazine 10 MG/2 ML VIAL 5 MG IVP (14:04)
[2024-08-28] MEDS: ACETAMINOPHEN 1,000 MG/100 ML BAG 400 MG (14:11)
[2024-08-28 14:13] LABS: Anion Gap 8.5 mmol/L (3-11); BUN 10 mg/dL (7-18); CO2 26.5 mmol/L (21.0-32.0); Calcium 8.8 mg/dL (8.5-10.1); Chloride 104 mmol/L (98-107); Estimated GFR 90.68 (mL/min/1.73m2); Glucose 101 mg/dL (74-106); Potassium 3.9 mmol/L (3.5-5.1); Sodium 139 mmol/L (136-145)
--- NOTE | 2024-08-29 12:30 | W.ED.GENAD ---
Discharge Plan Disposition Patient Disposition: Home Condition: Stable Discharge Details Clinical Impression: Headache Primary Care Provider: Mary Barfield ED Provider: Yoana De La Rosa Home Meds and New Rx's Prescriptions: Continued prochlorperazine [Compazine] 25 mg suppository 25 mg UT TID PRN (Reason: nausea and vomiting associated with migraines) Qty: 30 3RF ondansetron 4 mg tablet,disintegrating 4 mg PO Q6H PRN (Reason: nausea and vomiting) Qty: 30 3RF multivitamin [Daily Vitamin] 1 EACH tablet 1 ea PO DAILY cod liver oil 1 EACH capsule 1 ea PO BID calcium carbonate [Calcium 500] 500 MG tablet 500 mg PO DAILY cholecalciferol (vitamin D3) [Vitamin D3] 2,000 UNIT capsule 2,000 unit PO DAILY [place] 1 tab PO TID sumatriptan succinate 50 mg tablet 50 mg PO ONCE MDD 200 mg PRN (Reason: migraine) Qty: 30 3RF Rx Instructions: A second dose can be taken if no response after 2 hours acetaminophen 500 mg Capsule 1,000 mg PO Q6H PRN meclizine 25 mg tablet 25 mg PO TID PRN (Reason: dizziness) Qty: 30 0RF magnesium citrate 100 MG tablet 150 mg PO BID Discharge Instructions Instructions: Headache, Adult ED Additional Instructions: Take Compazine as needed for nausea and headache At least eight 8 ounce glasses of water daily Tylenol as needed for persistent discomfort return earlier should you have new or worsening complaints including return of headache Referrals: Mary Barfield, [employer] [Primary Care Provider, Medicine] Discharge Data Discharge Date/Time-TO BE ENTERED AT DEPARTURE: 08/28/24 15:00 HPI General Date/Time Provider Initiated Documentation: 08/28/24 13:31. HPI Narrative: This 79-year-old female with history of migraine headaches has been in [place] for the past week took a redeye on the way home. States developed headache this morning took 2 Imitrex without relief in symptoms history of headaches states this is similar to her prior. Has had some nausea without vomiting did a lot of hiking in [place] wondering if she might be dehydrated denies any stiff neck or fever. denies any risk of carbon monoxide or any additional complaints at this time. Related Data Home Medications ?Medication ?Instructions ?Recorded ?Confirmed [place] 1 tab PO TID 04/14/13 08/28/24 calcium carbonate (Calcium 500) 500 mg PO DAILY 04/14/13 08/28/24 cholecalciferol (vitamin D3) 50 2,000 unit PO DAILY 04/14/13 08/28/24 mcg (2,000 unit) capsule (Vitamin D3) cod liver oil 1 ea PO BID 04/14/13 08/28/24 multivitamin (Daily Vitamin tablet) 1 ea PO DAILY 04/14/13 08/28/24 magnesium citrate 100 mg tablet 150 mg PO BID 07/11/16 08/28/24 acetaminophen 500 mg capsule 1,000 mg PO Q6H PRN 12/13/19 08/28/24 meclizine 25 mg tablet 25 mg PO TID PRN dizziness #30 tabs 05/08/20 08/28/24 ondansetron 4 mg disintegrating 4 mg PO Q6H PRN nausea and 10/31/22 08/28/24 tablet vomiting #30 tabs prochlorperazine 25 mg rectal 25 mg UT TID PRN nausea and 10/31/22 08/28/24 suppository (Compazine) vomiting associated with migraines #30 tab-caps sumatriptan succinate 50 mg tablet 50 mg PO ONCE PRN migraine #30 11/12/23 08/28/24 tab-caps Previous Rx's ?Medication ?Instructions ?Recorded meclizine 25 mg tablet 25 mg PO TID PRN dizziness #30 tabs 05/08/20 ondansetron 4 mg disintegrating 4 mg PO Q6H PRN nausea and 10/31/22 tablet vomiting #30 tabs prochlorperazine 25 mg rectal 25 mg UT TID PRN nausea and 10/31/22 suppository (Compazine) vomiting associated with migraines #30 tab-caps sumatriptan succinate 50 mg tablet 50 mg PO ONCE PRN migraine #30 11/12/23 tab-caps Allergies Allergy/AdvReac Type Severity Reaction Status Date / Time cefuroxime axetil (From Allergy Intermediate Skin Rash Verified 08/28/24 13:14 Ceftin) aspirin AdvReac Intermediate GI upset Verified 08/28/24 13:14 General Stated Complaint: Headache JULIANNE: 3 Exam Narrative Exam Narrative: Alert and oriented oriented 79-year-old female in no acute distress no meningismus pupils equal round reactive to light and accommodation cranial nerves II 12 intact no rashes or lesions p extraocular muscles intact, uvula midline answering questions appropriately alert and oriented x 4 ambulatory with steady gait, headache rate rhythm regular no respiratory distress Course Vital Signs Vital signs: Vital Signs Temperature 36.3 C L 08/28/24 13:10 Pulse 78 08/28/24 13:10 Respiratory Rate 14 08/28/24 13:10 Blood Pressure 138/83 08/28/24 13:10 Pulse Oximetry 98 08/28/24 13:10 Temperature 36.3 C L 08/28/24 13:14 Temperature Source Oral 08/28/24 13:14 Pulse 59 L 08/28/24 14:55 Pulse 64 08/28/24 14:50 Respiratory Rate 16 08/28/24 14:55 Blood Pressure 134/68 08/28/24 14:55 Blood Pressure Mean 85 08/28/24 14:45 Blood Pressure Position Sitting 08/28/24 13:14 Pulse Oximetry 98 08/28/24 14:55 Oxygen Delivery Method Room Air 08/28/24 13:14 Oxygen Flow Rate 0 08/28/24 13:14 Pain Level 9 08/28/24 13:18 Lab/Test Results Lab/Test Results: Laboratory Tests Range/Units 08/28/24 13:50 WBC (4.4-10.8) 10^3/uL 5.00 RBC (3.93-5.22) 10^6/uL 3.76 L Hgb (11.2-15.7) g/dL 12.0 Hct (36.0-46.0) % 35.4 L MCV (80-95) fL 94 MCH (27.0-33.0) pg 31.9 MCHC (32.0-36.0) % 33.9 RDW (11.7-14.6) % 13.2 Plt Count (130-400) 10^3/uL 170 MPV (8.0-11.0) fL 8.8 Immature Gran % % 0.0 Neutrophils % % 82.8 Lymphocytes % % 9.6 Monocytes % % 6.8 Eosinophils % % 0.6 Basophils % % 0.2 Nucleated RBC % (0.0-0.3) % 0.0 Absolute Neutrophils (1.2-6.7) 10^3/uL 4.14 Absolute Lymphocytes (1.2-3.4) 10^3/uL 0.48 L Absolute Monocytes (0.1-0.8) 10^3/uL 0.34 Absolute Eosinophils (0.0-0.7) 10^3/uL 0.03 Absolute Basophils (0.0-0.2) 10^3/uL 0.01 Sodium (136-145) mmol/L 139 Potassium (3.5-5.1) mmol/L 3.9 Chloride (98-107) mmol/L 104 Carbon Dioxide (21.0-32.0) mmol/L 26.5 Anion Gap (3-11) mmol/L 8.5 BUN (7-18) mg/dL 10 Creatinine (0.55-1.02) mg/dL 0.6 Est GFR (CKD-EPI 2020) (mL/min/1.73m2) 90.68 Glucose (74-106) mg/dL 101 Calcium (8.5-10.1) mg/dL 8.8 Medical Decision Making This 79-year-old female who is otherwise reportedly healthy aside from history of headaches presents with a migraine headache which she describes typical for her. She is asking for fluids and antiemetics. I therefore ordered Compazine and fluids with some Tylenol IV. After infusion she is feeling marked improvement in requesting discharge home. Her neurological exam remains benign. - I did review her CT scan from which does not show evidence of acute abnormality, given a normal CT several years ago and patient's description of migraine being typical for her I did not feel CT imaging was necessary at this time especially with the resolution of her headache in the emergency department Her labs are reassuring and now she is feeling marked improvement I did discharge her home in stable condition with stable vitals return precautions were reviewed in detail and patient expressed understanding [facility] All Active Problems (Updated 08/28/24 @ 14:43 by IRWIN Sheriff) Headache (Acute) Osteoporosis (Chronic ~08/2024) 08/16/24 [facility] Neurology Bertolotti's syndrome (Acute ~11/2023) 11/21/[address] Aguilar Hepatic steatosis (Acute ~2021) 02/13/[address] showing normal liver density Chronic low back pain (Chronic) 11/20/[address] Aguilar 08/16/24 f/u Dr Aguilar - Recent DEXA, Impression: Degenerative Bertolotti Syndrome History of colon polyps (Acute) History of gastric ulcer (Acute) Lymphocytopenia (Chronic ~2011) 02/01/2021 [facility] [place] Hematology consult: incidental Other and unspecified disc disorder of unspecified region (Chronic 04/01/11) [facility], chiropractic every 2 months Lumbar spine pain H/O injections Female genital prolapse (Chronic 04/17/11) Migraine with aura and without status migrainosus, not intractable (Chronic 04/01/11) OA (osteoarthritis) (Chronic) Osteopenia (Chronic 04/14/13) 2010 DXA--+osteopenia osteoporosis (L forearm) Declines future DXA, as won't take osteoporosis tx; supp with ca, vit D & walks Medical History (Updated 08/28/24 @ 14:43 by IRWIN Sheriff) Night sweats Menopause Hyponatremia Actinic keratosis Gastric ulcer SARS-CoV-2 positive (~07/2021) Incidental pulmonary nodule 01/2021 3 month f/u CT: decreased prominence, consider 1 yr f/u; 10/2021: pt declines f/u Vertigo Tubular adenoma (~12/2019) Iliotibial band syndrome of left side Distal insertion injection: 07/19/2019 Microscopic hematuria (07/31/17) 07/24/17 cystostopy: 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 Villavicencio. Hx of esophagogastroduodenoscopy Hx of colonoscopy Status post rotator cuff surgery (~2015) Right removal lens material w/ lens implant, left (08/05/16) Bunionectomy (03/24/15) Dr Montesinos-right foot (neuroma). Family History Brother Diabetes adult onset. Grandmother Diabetes Social History Smoking/Tobacco Use Status: Never Smoking risk assessment performed?: Yes Alcohol Intake: current Alcohol Intake frequency: a few times a week Alcohol type: wine Drug use: Never Substance use type: does not use Adopted: No Caregiver/Support person: No Foster care: No Housing: house Number of Children: 3 number of grandchildren: 5 Communication Needs: None Education Level: master's degree Do you need help understanding health information?: Never current occupation: Retired Pets and animals: No Sexually active: No Do you think of yourself as: straight/heterosexual Current gender identity: female What is your relationship status?: How often do you talk on the phone with friends or family?: once per week How often do you get together with friends or relatives?: once per week Do you belong to any clubs or organized social groups?: yes Panel score (0-1 are the most socially isolated patients): 1 What type of physical activity do you participate in: walking and other Details: Man Chi Duration: 60-90 minutes/day Frequency: daily Abimbola/Jewish: Church Special abimbola needs: No Seatbelt use: always Helmet use: No (N/A) Drive intox or ride w/intox pile driver engineer: No Water heater temp set <120 deg: Yes Working smoke detector in home: Yes Fire extinguisher in home: Yes Carbon monox detector in home: Yes Firearms in home: No Do you feel safe at home: Yes Do you feel safe in your relationship?: Yes Female Reproductive History Menstrual Menopause type: natural
== END 2024-08-28 15:00 | disposition home or self-care (01) ==
PROVIDERS: Emergency Provider Physician Assistant; PCP Nurse Practitioner Adult Health
DX: R51.9 Headache, unspecified (principal); R11.0 Nausea; E78.5 Hyperlipidemia, unspecified
CPT/HCPCS: 36415; 80048; 96361; 96374; 99284; 85025; 99283; J0131; J0780

== ENCOUNTER 2024-11-05 04:00 | Outpatient (CLI) | payer MEDICARE, OTHER, SELFPAY ==
[2024-11-05 07:19] LABS: Abs Immature Grans 0.02 10^3/uL (0.0-0.06); HCT 34.4 % (36.0-46.0); HGB 11.6 g/dL (11.2-15.7); Immature Grans % 0.6 %; MCH 32.6 pg (27.0-33.0); MCHC 33.7 % (32.0-36.0); MCV 97 fL (80-95); MPV 8.9 fL (8.0-11.0); Platelet Count 181 10^3/uL (130-400); RBC 3.56 10^6/uL (3.93-5.22); RDW 13.1 % (11.7-14.6); RDW-SD 46.5 fL; WBC 3.63 10^3/uL (4.4-10.8)
[2024-11-05 07:58] LABS: ALT 25 U/L (14-59); AST 23 U/L (15-37); Albumin 3.6 g/dL (3.4-5.0); Alkaline Phosphatase 83 U/L (46-116); Anion Gap 7.6 mmol/L (3-11); BUN 10 mg/dL (7-18); Bilirubin, Total 0.9 mg/dL (0.2-1.0); CO2 28.4 mmol/L (21.0-32.0); Calcium 8.6 mg/dL (8.5-10.1); Chloride 103 mmol/L (98-107); Estimated GFR 74.44 (mL/min/1.73m2); Glucose 93 mg/dL (74-106); Magnesium 2.1 mg/dL (1.8-2.4); Potassium 4.0 mmol/L (3.5-5.1); Sodium 139 mmol/L (136-145); Total Protein 7.0 g/dL (6.4-8.2)
== END 2024-11-05 04:01 | disposition home or self-care (01) ==
LOC: LBO 04:00
PROVIDERS: PCP Nurse Practitioner Adult Health; Referring Provider Nurse Practitioner Adult Health; Visit Provider Nurse Practitioner Adult Health
DX: E87.1 Hypo-osmolality and hyponatremia (principal); K76.0 Fatty (change of) liver, not elsewhere classified; G43.109 Migraine with aura, not intractable, without status migrainosus; M85.80 Other specified disorders of bone density and structure, unspecified site
CPT/HCPCS: 36415; 80053; 83735; 85025

== ENCOUNTER 2024-11-29 02:06 | Outpatient (CLI) | payer MEDICARE, OTHER, SELFPAY ==
--- NOTE | 2024-11-29 08:25 | DI.MAMMO_ITS ---
Exam(s) MAMMO SCREENING EXAM: MAMMO SCREENING CLINICAL HISTORY: screening,z12.39 TECHNIQUE: Bilateral full field digital CC and MLO mammographic images were obtained with 3D tomosynthesis and utilizing computer aided detection (CAD). COMPARISON: Comparison is made with prior examinations. FINDINGS: Masses/Architectural Distortion: No suspicious masses or areas of architectural distortion are present. Microcalcifications: No suspicious pleomorphic-type are seen. Skin Thickening/Nipple Retraction: None. IMPRESSION: 1. No significant interval change with no specific features of malignancy noted. 2. Unless there is more urgent need, screening mammography is recommended, as per [place] [employer] guidelines. BI-RADS Category 1 - Negative Breast Density - Category C - The breast are heterogeneously dense, which may obscure small masses. Breast density Category C or D implies that the patient has dense breast tissue. Dense breast tissue can make it harder to find cancer on a mammogram. Dense breast tissue is also associated with an increased risk of breast cancer. This information about the result of the mammogram report was provided to the patient to raise their awareness. Use this report when you speak with the patient about their risks for breast cancer, which includes their family history. At that time, you may recommend additional screening tests (Ultrasound or MRI) as these tests may add significant information. A negative radiographic report should not delay biopsy if a dominant or clinically suspicious mass is present. Up to ten percent of cancers are not identified on mammography. A negative report may reinforce clinical impression. Adenosis and dense breasts may obscure an underlying neoplasm. False positive reports average 6 to 10%. Patient will receive a letter notifying them of these results.
== END 2024-11-29 02:26 ==
LOC: DI 02:08
PROVIDERS: PCP Nurse Practitioner Adult Health; Visit Provider Nurse Practitioner Adult Health
DX: Z12.31 Encounter for screening mammogram for malignant neoplasm of breast (principal)
CPT/HCPCS: 77063; 77067

== ENCOUNTER → 2024-12-02 08:24 | Outpatient (BNVA) | payer MEDICARE, OTHER, SELFPAY | PROVIDERS: PCP Nurse Practitioner Adult Health; Referring Provider Nurse Practitioner Adult Health; Visit Provider Physical Therapy Assistant | DX: Z12.11 Encounter for screening for malignant neoplasm of colon (principal); Z86.0101 Personal history of adenomatous and serrated colon polyps | CPT/HCPCS: S0285 ==

== ENCOUNTER 2024-12-02 10:50 | Outpatient (CLI) | payer MEDICARE, OTHER, SELFPAY ==
--- NOTE | 2024-12-02 06:00 | DI.RAD_ITS ---
Exam(s) XR PAIN CLINIC LUMBAR SP 2V EXAM: XR PAIN CLINIC LUMBAR SP 2V CLINICAL HISTORY: Dx: Lumbar Spondylosis TECHNIQUE: 2D and realtime digital imaging was performed. CONTRAST MATERIAL: Refer to procedure report. COMPARISON: No exams were available for comparison FINDINGS: Fluoroscopy was provided for Dr. Howell during the performance of a lumbar medial branch block. Please refer to the procedure report for complete details. Ka,r=4.81 mGy IMPRESSION: RADIATION DOSE DELIVERED: 0.0 0.0 0
[2024-12-02 11:00] VITALS: BP 104/65; PULSE 69; RESP 18; TEMP 36.5; O2SAT 98
[2024-12-02 11:44] VITALS: PULSE 68
[2024-12-02 11:50] VITALS: PULSE 76; PULSE 77; RESP 11; O2SAT 99
[2024-12-02 11:58] VITALS: BP 128/78; PULSE 71; PULSE 73; RESP 14; O2SAT 98
[2024-12-02] MEDS: Nerve Block Tray 1 EACH MC (12:05)
[2024-12-02] MEDS: Omnipaque 240 MG/ML 50 ML BTL IJ (12:05)
[2024-12-02] MEDS: Bupivacaine 0.5% Pres-Free 10 ML VIAL IJ (12:06)
--- NOTE | 2024-12-02 12:46 | PDOC.PAIN ---
Date of service: 12/02/24 Time of Service: 11:35 Pain Managment Procedure Note Procedure Note Procedure Note: INTRA-ARTICULAR FACET JOINT INJECTION Adele Lala has been referred to the [facility] for intra-articular lumbar facet joint injection. Dx: Lumbosacral spondylosis without myelopathy Pre-procedure pain VAS: 8/10 COMMENTS: I previously evaluated her in the office. 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 We are blocking this articulation, which is similar to a facet joint. The first of these blocks was completed at [facility]. Patient was interviewed and the medical record reviewed. There were no medical, pharmacologic, radiographic or other structural contraindications to attempting fluoroscopically guided intra-articular lumbar facet joint injection. Risks and expected side effects as well as potential benefit of the procedure were reviewed and voiced concerns addressed. The printed consent form was signed and witnessed. Standard time-out procedure was performed. Patient was placed in the prone position on the fluoroscopy table and automated blood pressure cuff and pulse oximeter applied. The skin entry point for approaching the left L5-S1 articulation was identified under the most advantageous fluoroscopic view and marked. Following thorough Chlorhexadine preparation of the skin and draping and 1% lidocaine infiltration of the skin entry point and subcutaneous tissues, a 22 gauge spinal needle was placed under fluoroscopic guidance into left articulation. Intra-articular placement was confirmed by a clear arthrogram resulting from the injection of 0.25ml Omnipaque 240. 0.5ml of 0.5% Bupivacaine was injected intra-articularily with an initial reproduction of a significant component of the usual pain. Vital signs were stable throughout the procedure and were as recorded in the docflowsheet by the nursing staff. If given, dosages of intravenous drugs for anxiolysis and analgesia were documented in MAR. Follow up plans and appointments were discussed. Post procedure instruction was given as documented in nursing documentation and having met discharge criteria,was discharged from the [facility]. COMMENTS: She tolerated the procedure well. If she gets at least 80% pain relief or functional improvement for 4 hours after this procedure (her second), we can proceed with an ablation to the left L5-S1 pseudojoint. Post-procedure pain VAS was 4/10. Osmar Howell DO, MPH [facility] CC: Mary Barfield APRN Coding Conscious Sedation used for procedure: No CPT Codes: LMBB (includes Fluoro) Lumbar/Sacral, single lvl - [id number] ([id number] ~G) Additional Codes: Date of Service () Diagnoses: Lumbosacral spondylosis without myelopathy
== END 2024-12-02 10:51 | disposition home or self-care (01) ==
LOC: PC 10:50
PROVIDERS: PCP Nurse Practitioner Adult Health; Visit Provider Preventive Medicine Occupational Medicine
DX: M47.817 Spondylosis without myelopathy or radiculopathy, lumbosacral region (principal)
CPT/HCPCS: 64493; 72100; J0665; Q9967

== ENCOUNTER 2024-12-22 06:48 | Day surgery (SDC) | payer MEDICARE, OTHER, SELFPAY ==
[2024-12-22 07:17] VITALS: BP 119/67; PULSE 67; RESP 16; TEMP 36.2; O2SAT 100
[2024-12-22] MEDS: Lactated Ringers 1,000 ML 80 ML IV (07:35)
--- NOTE | 2024-12-22 07:48 | W.ANESPRE ---
General Info Date of Service Date Performed: 12/22/24 Height: 5 ft 1 in Weight: 51.3 kg Body Mass Index (BMI): 21.3 Surgical Procedure: Operation Date: 12/22/24 08:35 Proposed Procedure Side Surgeon anthony Celeste MD Meds Allergies and Home Medications Allergies Allergy/AdvReac Type Severity Reaction Status Date / Time cefuroxime axetil (From Allergy Intermediate Skin Rash Verified 12/22/24 07:14 Ceftin) aspirin AdvReac Intermediate GI upset Verified 12/22/24 07:14 Home Medication Medication Instructions Recorded [place] 1 tab PO TID 04/14/13 calcium carbonate (Calcium 500) 500 mg PO DAILY 04/14/13 cholecalciferol (vitamin D3) 50 2,000 unit PO DAILY 04/14/13 mcg (2,000 unit) capsule (Vitamin D3) cod liver oil 1 ea PO BID 04/14/13 multivitamin (Daily Vitamin tablet) 1 ea PO DAILY 04/14/13 magnesium citrate 100 mg tablet 150 mg PO BID 07/11/16 acetaminophen 500 mg capsule 1,000 mg PO Q6H PRN 12/13/19 sumatriptan succinate 50 mg tablet 50 mg PO ONCE PRN migraine #30 09/01/24 tab-caps bisacodyl 5 mg tablet,delayed 5 mg PO ONCE #4 tabs 12/02/24 release (Dulcolax (bisacodyl)) polyethylene glycol 3350 17 17 g PO ONCE #238 grams 12/02/24 gram/dose oral powder Current Visit Medications: Current Medications Generic Name Dose Route Start Last Admin Trade Name Freq PRN Reason Stop Dose Admin Ringer's Solution 1,000 mls @ 80 mls/hr 12/22/24 06:00 12/22/24 07:35 IV 12/22/24 23:59 80 mls/hr INFUSION SARA Administration IV Miscellaneous Supplies 1 each 12/22/24 06:00 Iv Access IV 12/22/24 23:59 DIRECTED SARA Sodium Chloride 0 ml 12/22/24 06:00 Normal Saline Flush 10 Ml Syr IV 12/22/24 23:59 PRN PRN Sodium Chloride 0 ml 12/22/24 06:00 Normal Saline 10 Ml Vial IJ 12/22/24 23:59 DIRECTED PRN Sterile Water 0 ml 12/22/24 06:00 Water,Injection,Sterile 10 Ml Vial IJ 12/22/24 23:59 DIRECTED PRN PFSH Active Problems Active Problems: Problem Status Onset Code Lumbosacral spondylosis without myelopathy Acute M47.817 Osteoporosis Chronic ~08/2024 M81.0 Bertolotti's syndrome Acute ~11/2023 Q76.49 Hepatic steatosis Acute ~2021 K76.0 Chronic low back pain Chronic M54.50, G89.29 History of colon polyps Acute Z86.010 History of gastric ulcer Acute Lymphocytopenia Chronic ~2011 D72.810 Other and unspecified disc disorder of unspecified region Chronic 04/01/11 M51.9 Female genital prolapse Chronic 04/17/11 N81.9 Migraine with aura and without status migrainosus, not intractable Chronic 04/01/11 G43.109 OA (osteoarthritis) Chronic Osteopenia Chronic 04/14/13 M85.80 Medical History Medical History Night sweats Menopause Hyponatremia Actinic keratosis Gastric ulcer SARS-CoV-2 positive (~07/2021) Incidental pulmonary nodule 01/2021 3 month f/u CT: decreased prominence, consider 1 yr f/u; 10/2021: pt declines f/u Vertigo Tubular adenoma (~12/2019) Iliotibial band syndrome of left side Distal insertion injection: 07/19/2019 Microscopic hematuria (07/31/17) 07/24/17 cystostopy: 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 Villavicencio. Hx of esophagogastroduodenoscopy Hx of colonoscopy Status post rotator cuff surgery (~2015) Right removal lens material w/ lens implant, left (08/05/16) Bunionectomy (03/24/15) Dr Montesinos-right foot (neuroma). Tobacco Smoking/Tobacco Use Status: Never Passive smoking exposure: No Alcohol Alcohol Intake: current Alcohol intake frequency: a few times a week Alcohol type: wine Substance Use Substance use: Never Substance use type: does not use Vital Signs and Lab Results Vital Signs Most Recent Vital Signs in EMR: Most Recent Vital Signs Temp Pulse Resp BP Pulse Ox 36.2 C L 67 16 119/67 100 12/22/24 07:17 12/22/24 07:17 12/22/24 07:17 12/22/24 07:17 12/22/24 07:17 Imaging and Studies Imaging and Studies Study information below may be from another EMR and interpreted by another provider. Please see original notes in EMR for more complete details. EKG Summary: 08/13/23: NSR Carotid Artery Summary:: 03/13/20: no evidence of hemodynamically significant carotid artery stenosis Anesthesia Assessment and Plan Anesthesia History Personal History: No History of Anesthesia Complications Family History: No Family History of Anesthesia Complications Exercise Tolerance Exercise Tolerance: Metabolic Equivalents>4 Cardiac & Pulmonary Exam Cardiac Exam: Normal S1/S2 Heart Sounds Pulmonary Exam: Clear Bilateral Breath Sounds Implantable Cardiac Device Does patient have a Pacemaker or an ICD?: No Airway Exam Known Difficult Airway: No Mallampati Class: 2 Mouth Opening: Normal (> 3cm) Thyromental Distance: Greater than 3 cm Neck Range of Motion: Full ROM Neck Circumference: Normal Teeth Condition: Normal Dentition ASA Classification ASA Score: ASA 2 Emergency Case?: No NPO Status NPO Status: NPO Clears >2 hours, Solids >8 hours Anesthesia Plan Resuscitation Status: Full Code Anesthesia Technique: General Anesthesia Airway Planned: Natural Airway Monitors Used: Standard Monitors
[2024-12-22 08:07] VITALS: BMI 21.3
[2024-12-22 09:00] VITALS: BP 95/54; PULSE 72; RESP 14; TEMP 36.2; O2SAT 96
--- NOTE | 2024-12-22 09:01 | W.PM.DSUDISC ---
Date of service: 12/22/24 Discharge Plan Disposition Patient Disposition: Home Condition: Good Discharge Details Reason For Visit: Colonoscopy Attending Provider: Shadia Celeste Primary Care Provider: Mary Barfield Home Meds and New Rx's Prescriptions: Continued sumatriptan succinate 50 mg tablet 50 mg PO ONCE MDD 200 mg PRN (Reason: migraine) Qty: 30 3RF Patient Comments: prn Rx Instructions: A second dose can be taken if no response after 2 hours multivitamin [Daily Vitamin] 1 EACH tablet 1 ea PO DAILY cod liver oil 1 EACH capsule 1 ea PO BID calcium carbonate [Calcium 500] 500 MG tablet 500 mg PO DAILY cholecalciferol (vitamin D3) [Vitamin D3] 2,000 UNIT capsule 2,000 unit PO DAILY [place] primrose 1 tab PO TID acetaminophen 500 mg Capsule 1,000 mg PO Q6H PRN Patient Comments: prn magnesium citrate 100 MG tablet 150 mg PO BID Discontinued bisacodyl [Dulcolax (bisacodyl)] 5 mg tablet,delayed release (DR/EC) 5 mg PO ONCE Qty: 4 0RF Patient Comments: prn Rx Instructions: Take per colonoscopy instructions provided by ordering providers office polyethylene glycol 3350 17 gram/dose powder 17 g PO ONCE Qty: 238 0RF Patient Comments: prn Rx Instructions: Take per colonoscopy instructions provided by ordering providers office Discharge Instructions Additional Instructions: Your colonoscopy went well today. The entire colon appeared normal and you did not have any polyps. The recommendation would be to discuss having another colonoscopy in 10 yrs. If you have any questions or concerns please contact the general surgery office. 1. If tolerated, consume a soft, low fiber diet for 1-2 days. 2[address] Do not drive, drink alcohol, operate machinery, make critical decisions, or do activities that require coordination or balance for 24 hours. 3. Because air was put into your colon during the procedure, expelling air from your rectum (passing gas or farting) is normal. 4. You may not have a bowel movement for 1-3 days because of the colonoscopy prep. This is normal. 5. Go directly to the emergency room if you notice any of the following: Develop chills (warm to touch), or if you have a thermometer and your temperature is above 101 Difficulty breathing or difficultly swallowing Persistent vomiting Severe abdominal pain, other than gas cramps Severe chest pain Black, tarry stools Any bleeding – exceeding one tablespoon 6. Call your physician if the site where your intravenous was started becomes red, swollen, painful, and warm to touch. 7. Your physician has reviewed your pre-procedure medications. Please continue to take those medications as previously ordered. You will be given specific information/education regarding any changes to your medications before leaving. Stand Alone Forms: Anesthesia Discharge Inst., Jason Cleary ([facility]), Portal Information Activity:: Activity as Tolerated Diet:: As Tolerated Discharge Orders Discharge Orders: Discharge Order (Routine); Ordered 12/22/24 Ordered By: Shadia Celeste
--- NOTE | 2024-12-22 09:03 | W.COLOREPORT ---
Date of service: 12/22/24 Time of Service: 09:03 Colonoscopy Report Date of procedure: 12/22/24 Pre-op diagnosis general: Personal history of colon polyps Post-op diagnosis procedure note: same Procedure: Colonoscopy Surgeon: Shadia Celeste Anesthesia Type: General:No Airway Estimated blood loss (mL): 0 Pathology: none sent Complications: None Disposition: PACU Indications: Patient is an 79 yo female who presents for a colonoscopy due to a personal history of polyps. Prep: Miralax/Dulcolax Procedure Start Time: 08:27 Procedure End Time: 08:54 Retraction Time: 14 Findings: Normal colonoscopy. Procedure Description: Informed consent was obtained. The patient was taken to the endoscopy suite and placed in the left lateral decubitus position. After adequate intravenous sedation, digital rectal exam was performed, which was normal. A colonoscope was inserted into the rectum and negotiated to the cecum with some difficulty due to a tortuous colon. The ileocecal valve and appendiceal orifice were identified. The entire colonic mucosa was then carefully circumferentially inspected upon slow withdrawal of the scope. The entire colon appeared normal. Retroflexion in the rectum was unremarkable. The patient tolerated the procedure well with no complications. Postoperatively, the patient was transferred to the recovery room in stable condition. [place] Bowel Prep [place] Bowel Prep Right Colon: 3 Left Colon: 3 Transverse Colon: 3 Total Score: 9
--- NOTE | 2024-12-22 09:12 | W.ANESPOSTOP ---
Postoperative Evaluation Date, Time and Location Date Performed: 12/22/24 Time Performed: 09:10 Patient Location: Day Surgery Unit Vital Signs Most Recent Imported Vital Signs: Most Recent Vital Signs Temp Pulse Resp BP Pulse Ox 36.2 C L 72 14 95/54 L 96 12/22/24 09:03 12/22/24 09:03 12/22/24 09:03 12/22/24 09:03 12/22/24 09:03 Pain Score Most Recent Pain Score: Most Recent Pain Score Pain Level 0 12/22/24 09:03 Assessment Mental Status: Awake (Alert & Oriented to Patient Baseline) Airway and Respiratory Function: Patent airway with normal (patient baseline) respiratory exam Cardiovascular Function: Hemodynamically Stable Hydration Status: Adequately Hydrated Nausea & Vomiting: No Nausea or Vomiting Pain: Pt. Denies Any Pain Peripheral Nerve Block: Patient did not receive a nerve block
[2024-12-22 09:23] VITALS: BP 113/62; PULSE 61; RESP 14; TEMP 36.4; O2SAT 100
== END 2024-12-22 09:40 | disposition home or self-care (01) ==
PROVIDERS: PCP Nurse Practitioner Adult Health; Visit Provider Student in an Organized Health Care Education/Training Program
PROC: 0DJD8ZZ Inspection of Lower Intestinal Tract, Via Natural or Artificial Opening Endoscopic (ICD-10-PCS; CPT 45378; principal; 2024-12-22 08:30)
DX: Z12.11 Encounter for screening for malignant neoplasm of colon (principal); Z86.0101 Personal history of adenomatous and serrated colon polyps; K63.89 Other specified diseases of intestine
CPT/HCPCS: G0105; J2003; J2405; J2704

== ENCOUNTER 2025-01-20 01:41 | Outpatient (CLI) | payer MEDICARE, OTHER, SELFPAY ==
[2025-01-20 16:06] LABS: Calcium 8.9 mg/dL (8.3-10.6)
[2025-01-20 16:12] LABS: Vitamin D 25 Total 68 ng/mL (30-100)
== END 2025-01-20 01:42 | disposition home or self-care (01) ==
LOC: LBO 01:41
PROVIDERS: PCP Nurse Practitioner Adult Health; Visit Provider Nurse Practitioner Primary Care
DX: M81.0 Age-related osteoporosis without current pathological fracture (principal)
CPT/HCPCS: 36415; 82306; 82310

== ENCOUNTER 2025-01-27 08:40 | Outpatient (REF) | payer MEDICARE, OTHER, SELFPAY ==
[2025-01-27 15:38] LABS: Creatinine,Urine 42.7 mg/dL
[2025-01-27 16:21] LABS: Creatinine,24hr Ur 0.81 g/24hr (0.60-1.80); Total Volume 1915 mL
[2025-01-28 09:33] LABS: Calcium Urine 9.4 mg/dL (See Note); Timed Urine Volume 1915 mL
== END 2025-01-27 08:41 | disposition home or self-care (01) ==
LOC: LBN 08:40
PROVIDERS: PCP Nurse Practitioner Adult Health; Visit Provider Nurse Practitioner Primary Care
DX: M81.0 Age-related osteoporosis without current pathological fracture (principal)
CPT/HCPCS: 81050; 82340; 82570